=== PATIENT | male | born 1945 | race Caucasian/White ===

== ENCOUNTER 2023-06-06 12:47 | Day surgery (SDC) | payer MEDICARE ==
[2023-06-01 09:31] VITALS: BMI 21.7
[~2023-06-06 12:47] MED LIST: LACTATED RINGERS 1,000 ML IV SCH; LIDOCAINE 1% (10MG/ML) FOR IV START INTRADERMA PRN
[2023-06-06 13:27] LABS: Glucose,Whole Blood 125 mg/dL (70-110)
[2023-06-06] MEDS ORDERED: PHENYLEPHRINE-0.9% NACL SYG 1,000 MCG/10 ML SYRINGE ONE (13:57)
[2023-06-06] MEDS ORDERED: PROPOFOL 10 MG/ML 20 ML VIAL IV ONE (13:57)
[2023-06-06] MEDS ORDERED: SUCCINYLCHOLINE CHLORIDE 200 MG/10 ML VIAL IV ONE (13:57)
[2023-06-06] MEDS ORDERED: fentaNYL (PF) 50 MCG/ML 2 ML AMP ONE (13:57)
[2023-06-06] MEDS ORDERED: LIDOCAINE 2% (PF) 20 MG/ML 5 ML VIAL ONE (13:57)
[2023-06-06 14:54] VITALS: TEMP 97.1
[2023-06-06 15:46] VITALS: RESP 20
[2023-06-06 16:03] VITALS: BP 120/84; PULSE 102
--- NOTE | 2023-06-06 20:13 | OP ---
OPERATIVE REPORT DATE OF SERVICE : PROCEDURES PERFORMED: Bronchoscopy with endobronchial biopsy of endobronchial tumor involving the proximal aspect of the right lower lobe. Washings of the endobronchial tumor and brushings of endobronchial tumor, right lower lobe. PREOPERATIVE DIAGNOSIS: Abnormal CT of the chest showing right hilar mass, possible endobronchial mucous plug. POSTOPERATIVE DIAGNOSIS: Endobronchial tumor, highly consistent with bronchogenic carcinoma. ANESTHESIA USED: General anesthetic. DESCRIPTION OF PROCEDURE: The patient was brought into the bronchoscopy suite after he was prepared according to the bronchoscopy protocol. The patient was intubated by CURB WORKER, and placed on mechanical ventilation and he was closely monitored with a pulse oximetry/continuous cardiac rhythm/continuous and intermittent blood pressure monitor. After adequate sedation, the bronchoscope was advanced into the endobronchial tube, and advanced all the way down to the kiera which was noted to be sharp. Examination of the right upper lobe was done, and there was no evidence of any endobronchial tumors or purulent secretions from the right upper lobe. I then examined the left side, and the left side was basically normal including left upper lobe lingula and left lower lobe. No endobronchial tumors noted on the left side. However, as the bronchoscope was advanced down into the bronchus intermedius and to the lower area, there was evidence of a large tumor completely occluding the right lower lobe bronchus. I was able to pass on the anterior portion of the tumor to the area of the right middle lobe, and I was able to visualize the right middle lobe well but could not have any visualization of the right lower lobe area or the different segments of the right lower lobe. Obviously, the tumor was completely occluding the proximal portion of the right lower lobe bronchus. The tumor looked necrotic, there was some whitish and yellow secretions on the surface of the tumor, I was able to do multiple endobronchial biopsies from the endobronchial tumor itself, brushings were also done, and washings of the tumor were done. The specimen was sent for different diagnostic studies/pathology and cytology. The procedure was well tolerated, and there was very minimal blood loss if any, family was updated on his condition, bronchoscope was pulled out of the airways, and the procedure was well tolerated. MMODL / IJN: [id number] /
[2023-06-07 05:37] LABS: Appearance,BF Blood Tinged (Clear); RBC, Body Fluid 30200 /UL (0-2000)
[2023-06-11 14:53] LABS: Nucleated Cells, Body Fluid 150 /UL
== END 2023-06-06 16:06 | disposition home or self-care (01) ==
LOC: ORWHC2ENDO 12:47
PROVIDERS: ATTEND Internal Medicine
DX: C34.31 Malignant neoplasm of lower lobe, right bronchus or lung (principal); J18.1 Lobar pneumonia, unspecified organism
CPT/HCPCS: 88104; 88108; 88305; 89050; 88342; 88341; 87070; 87205; 87116; 87102; 87077; 87186; 87206; 31625; 31623; 31624; J0330; J3010; J2704; J2001; J2371

== ENCOUNTER → 2023-07-02 | Outpatient (CLI) | payer MEDICARE ==
--- NOTE | 2023-07-03 08:59 | MR ---
EXAMINATION TYPE: MR brain wo/w con DATE OF EXAM: 07/02/2023 COMPARISON: None HISTORY: Lung ca CONTRAST: Performed utilizing 9 mL intravenous Gadavist gadolinium contrast. TECHNIQUE: Multiplanar, multiecho imaging on a 3.0 Aura magnet is performed through the brain. Stud y is performed within 24 hours of arrival to the hospital. The craniovertebral junction is normal. The pituitary is normal. Diffusion-weighted imaging is performed. No abnormal hyperintensity is present to suggest an acute i ntracranial infarct or acute ischemic change. There are scattered punctate areas of hyperintensity on T2 and Inversion Recovery weighted sequences which are non-specific but can be related to microvascular ischemic changes. Ventricles and sulci are appropriate for the patient age. No abnormal enhancement is evident. IMPRESSION: 1. Chronic appearing periventricular white matter ischemic-type changes. 2. No suspicious changes to suggest metastatic lung cancer.
== END | disposition home or self-care (01) ==
LOC: RADMRIMAIN 10:36
PROVIDERS: ATTEND Internal Medicine
DX: G93.89 Other specified disorders of brain (principal); C34.31 Malignant neoplasm of lower lobe, right bronchus or lung
CPT/HCPCS: 70553; A9585

== ENCOUNTER → 2023-07-06 | Outpatient (CLI) | payer MEDICARE ==
--- NOTE | 2023-07-07 08:58 | PE ---
EXAMINATION TYPE: PET CT fusion skull to thigh DATE OF EXAM: 07/06/2023 CLINICAL INDICATION:Male, 77 years old with history of R91.1 LUNG NODULE; TECHNIQUE: Following the intravenous administration of 12.33 mCi of F-18 FDG, whole body images are performed from the skull base to the midthigh. Images are reviewed on the computer in the coronal, axial, and sagittal planes. Reconstructed rotating images are created on independent workstation and reviewed on the computer. A non-contrast CT is performed in conjunction with the PET scan. Glucose level 111 mg/dL CT DLP: 623.39 mGycm, Automated exposure control for dose reduction was used. COMPARISON: CT 03/17/2023, PET/CT None, FINDINGS: Mediastinal SUV mean is 2.2. Hepatic parenchyma SUV mean is 2.5. SKULL BASE AND NECK: No suspicious radiotracer activity. CHEST, MEDIASTINUM, AND HILAR REGION: * Airspace opacities are visualized in the upper aspect right lung max SUV 7.0. * Right lower lung pulmonary nodule with increased FDG activity max SUV 17.0, this is difficult to m easure given lack of IV contrast, on PET imaging measures up to 3.4 x 1.9 cm. * Subcarinal lymph node max SUV 13.0 measuring 13 mm. * Pulmonary hilum lymph node more superiorly max SUV 10.9. This hard to measure given lack of IV con trast , possibly measuring up to 14 mm. ABDOMEN AND PELVIS: No suspicious radiotracer activity. MUSCULOSKELETAL STRUCTURES: Subtle uptake within left rib 8 laterally max SUV 3.[address]: Atherosclerosis of the carotid bifurcations and coronary arteries. Heart is mildly enlarged for size. Aortic valve leaflet calcifications are moderate. IMPRESSION: 1. 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 2. Right upper lung suspected pneumonia. 3. Subtle uptake of left lateral rib 8, correlate with point tenderness for fracture.
== END | disposition home or self-care (01) ==
LOC: RADPETMAIN 12:53
PROVIDERS: ATTEND Internal Medicine
DX: R91.1 Solitary pulmonary nodule (principal)
CPT/HCPCS: 78815; A9552

== ENCOUNTER 2023-08-15 10:42 | Day surgery (SDC) | payer MEDICARE ==
[2023-08-15 11:26] LABS: Glucose,Whole Blood 146 mg/dL (70-110)
[2023-08-15 11:38] VITALS: BP 155/74; PULSE 112; RESP 16; TEMP 98
[2023-08-15] MEDS ORDERED: LIDOCAINE 1% INJ 10MG/ML (20 ML MDV) ONE (12:01)
[2023-08-15] MEDS ORDERED: HEPARIN SODIUM 1,000 UN/ML (10ML VL) ONE (12:01)
[2023-08-15] MEDS ORDERED: LIDOCAINE 1% INJ 10MG/ML (20 ML MDV) SQ ONE (12:08)
--- NOTE | 2023-08-15 14:37 | IR ---
PICC LINE PLACEMENT: HISTORY: Infection requiring long-term antibiotic therapy PROCEDURE: Ultrasound and fluoroscopic guidance of PICC line placement. COMPLICATIONS: None ANESTHESIA: 1. 1% Lidocaine locally. FINDINGS/TECHNIQUE: The procedure was explained to the patient. The risks, complications, benefits and alternatives were discussed and any questions were answered. Informed consent was obtained. The patient was placed supine on the fluoroscopic table and prepped and draped in the usual sterile fash ion. Utilizing a 21 gauge needle and sonographic and fluoroscopic guidance, access in the left basi lic vein was achieved and there is placement of a 0.018 guidewire. The vein is patent. A 4-F sheath was placed over the guidewire. The guidewire and dilator were removed and a 4-F. PICC line was plac ed through the sheath with the tip at the level of the SVC. The sheath was removed, the catheter was flushed and sutured into position. The patient was stable throughout the procedure and remained sta ble upon discharge from the Department of Radiology. The vein puncture was patent under ultrasound. A nunes scale image was obtained to document patency of the vein punctured. All elements of the maximal barrier technique were utilized. FLUOROSCOPY TIME: DAP 0.014Gy cm2 IMPRESSION: Successful PICC line placement under ultrasound and fluoroscopic guidance.
== END 2023-08-15 12:28 | disposition home or self-care (01) ==
LOC: CATHCVL 10:42
PROVIDERS: ATTEND Radiology Diagnostic Radiology
DX: Z45.2 Encounter for adjustment and management of vascular access device (principal); J44.9 Chronic obstructive pulmonary disease, unspecified; Z88.5 Allergy status to narcotic agent; Z88.8 Allergy status to other drugs, medicaments and biological substances; Z79.899 Other long term (current) drug therapy
CPT/HCPCS: 36573; C1751; C1769; J2001

== ENCOUNTER 2023-08-29 23:57 | Inpatient (IN) | payer MEDICARE ==
--- NOTE | 2023-08-30 00:11 | ED ---
SOB HPI - General Source: patient, RN notes reviewed <Mariama Cabral - Last Filed: 08/30/23 00:11> - General Source: RN notes reviewed, old records reviewed Limitations: no limitations - History of Present Illness MD Complaint: shortness of breath, cough -: days(s) Severity: moderate Severity scale (1-10): 4 Quality: aching Consistency: constant Improves With: nothing Worsens With: nothing Known History Of: COPD Context: recent URI, recent illness Associated Symptoms: chest pain, sputum production Treatments Prior to Arrival: none <Vijay Rogers - Last Filed: 08/30/23 03:07> - General Stated Complaint: Respitory distress Time Seen by Provider: 08/30/23 00:11 - History of Present Illness Initial Comments: Patient is 77-year-old male presented ER with chief complaint of dyspnea. Urgent states he recently had Covid. Patient is not normally on oxygen at home. Patient denies any fevers, chills, night sweats. Patient is currently being treated for cancer. (Mariama Cabral) This is a 77-year-old male DF for evaluation of severe shortness of breath positive for coronavirus on and requiring oxygen here. Patient has bilateral PEs on transfer (Vijay Rogers) - Related Data Home Medications Medication Instructions Recorded Confirmed Apixaban [Eliquis] 5 mg PO BID 03/16/23 08/14/23 Diltiazem Cd [Cardizem CD] 240 mg PO DAILY 03/16/23 08/14/23 Metoprolol Tartrate [Lopressor] 12.5 mg PO BID 03/16/23 08/14/23 Famotidine [Pepcid] 20 mg PO DAILY 06/01/23 08/14/23 Furosemide [Lasix] 40 mg PO BID 06/01/23 08/14/23 Gabapentin 300 mg PO BID 06/01/23 08/14/23 HYDROcodone/APAP 5-325MG [[place] 1 tab PO DIRECTED PRN 07/31/23 08/14/23 5-325] Levothyroxine Sodium [Synthroid] 50 mcg PO DAILY 07/31/23 08/14/23 metFORMIN HCL [Glucophage] 500 mg PO BID 07/31/23 08/15/23 Benzonatate 100 mg PO DIRECTED PRN 08/13/23 08/14/23 Citalopram Hydrobromide 10 mg PO DAILY 08/13/23 08/14/23 [Citalopram HBr] Glimepiride 1 mg PO DAILY 08/13/23 08/15/23 Ondansetron [Zofran] 4 mg PO DIRECTED PRN 08/13/23 08/15/23 Previous Rx's Medication Instructions Recorded Aspirin 81 mg PO DAILY 90 Days #90 tab 03/19/23 Atorvastatin [Lipitor] 40 mg PO HS 90 Days #90 tab 03/19/23 Ipratropium-Albuterol Nebulize 3 ml INHALATION RT-QID 30 Days 03/19/23 [Duoneb 0.5 mg-3 mg/3 ml Soln] #120 each Allergies Allergy/AdvReac Type Severity Reaction Status Date / Time cephalexin [From Keflex] Allergy Mild Rash/Hives Verified 08/30/23 00:46 codeine Allergy Mild Rash/Hives Verified 08/30/23 00:46 Review of Systems ROS Other: All systems not noted in ROS Statement are negative. <Mariama Cabral - Last Filed: 08/30/23 00:11> ROS Other: All systems not noted in ROS Statement are negative. <Vijay Rogers - Last Filed: 08/30/23 03:07> ROS Statement: Those systems with pertinent positive or pertinent negative responses have been documented in the HPI. Past Medical History Past Medical History: Atrial Fibrillation, Cancer, COPD, Diabetes Mellitus, GERD/Reflux, Hyperlipidemia, Hypertension, Pneumonia, Thyroid Disorder Additional Past Medical History / Comment(s): hx foot swelling and drainage left healing, taking lasix for this, was very painful, , ultrasound done on 05/31/23 lung cancer 06/18, chemo and radiation. diarrhea since chemo last sunday History of Any Multi-Drug Resistant Organisms: None Reported Past Surgical History: Heart Catheterization, Orthopedic Surgery Additional Past Surgical History / Comment(s): back surg, neck surg, right nipple removed due to pain benign, nerve damage to left side, skin cancer removed ear and face Past Anesthesia/Blood Transfusion Reactions: No Reported Reaction Additional Past Anesthesia/Blood Transfusion Reaction / Comment(s): no blood transfusion Smoking Status: Current every day smoker - Past Family History Mother Family Medical History: Cancer, CVA/TIA Additional Family Medical History / Comment(s): skin Father Family Medical History: Myocardial Infarction ([place]) Additional Family Medical History / Comment(s): chf <Mariama Cabral - Last Filed: 08/30/23 00:11> General Exam <Mariama Cabral - Last Filed: 08/30/23 00:11> General appearance: alert, in no apparent distress Head exam: Present: atraumatic, normocephalic, normal inspection Eye exam: Present: normal appearance, PERRL, EOMI. Absent: scleral icterus, conjunctival injection, periorbital swelling ENT exam: Present: normal exam, mucous membranes moist Neck exam: Present: normal inspection. Absent: tenderness, meningismus, lymphadenopathy Respiratory exam: Present: normal lung sounds bilaterally. Absent: respiratory distress, wheezes, rales, rhonchi, stridor Cardiovascular Exam: Present: regular rate, normal rhythm, normal heart sounds. Absent: systolic murmur, diastolic murmur, rubs, gallop, clicks GI/Abdominal exam: Present: soft, normal bowel sounds. Absent: distended, tenderness, guarding, rebound, rigid Extremities exam: Present: normal inspection, full ROM, normal capillary refill. Absent: tenderness, pedal edema, joint swelling, calf tenderness Back exam: Present: normal inspection Neurological exam: Present: alert, oriented X3, CN II-XII intact Psychiatric exam: Present: normal affect, normal mood Skin exam: Present: warm, dry, intact, normal color. Absent: rash <Vijay Rogers - Last Filed: 08/30/23 03:07> - General Exam Comments Initial Comments: Visual Physical Exam Vital signs reviewed General: Well-appearing, nontoxic, no acute distress. Head: Normocephalic, atraumatic Eyes: PERRLA, EOMI ENT: Airway patent Chest: Nonlabored breathing Skin: No visual rash, normal skin tone Neuro: Alert and oriented 3 Musculoskeletal: No gross abnormalities (Mariama Cabral) Course <Vijay Rogers - Last Filed: 08/30/23 03:07> Vital Signs 08/30/23 08/30/23 00:46 01:31 Temperature 98.4 F Pulse Rate 61 68 Respiratory 18 22 Rate Blood Pressure 101/55 92/45 O2 Sat by Pulse 96 96 Oximetry - Reevaluation(s) Reevaluation #1: 08/30/23 02:36 Medical record is reviewed (Vijay Rogers) Reevaluation #2: 08/30/23 02:37 Patient is in no acute distress (Vijay Rogers) Reevaluation #3: 08/30/23 02:38 Patient informed results and questions answered (Vijay Rogers) Reevaluation #4: 08/30/23 02:36 Was pt. sent in by a medical professional or institution (, RUBY, CUSTODIAL MAINTENANCE WORKER, urgent care, hospital, or intermediate...) When possible be specific @ -no Did you speak to anyone other than the patient for history (EMS, parent, family, police, friend...)? What history was obtained from this source @ -no Did you review nursing and triage notes (agree or disagree)? Why? @ -agree Are old charts reviewed (outside hosp., previous admission, EMS record, old EKG, old radiological studies, urgent care reports/EKG's, intermediate records)? Report findings @ -yes Differential Diagnosis (chest pain, altered mental status, abdominal pain women, abdominal pain men, vaginal bleeding, weakness, fever, dyspnea, syncope, he adache, dizziness, GI bleed, back pain, seizure, CVA, palpatations, mental health, musculoskeletal)? @ -prior EKG interpreted by me (3pts min.). @ -yes X-rays interpreted by me (1pt min.). @ -yes CT interpreted by me (1pt min.). @ -no U/S interpreted by me (1pt. min.). @ -no What testing was considered but not performed or refused? (CT, X-rays, U/S, labs)? Why? @ -none What meds were considered but not given or refused? Why? @ -none Did you discuss the management of the patient with other professionals (professionals i.e. RUBY Hebert, CUSTODIAL MAINTENANCE WORKER, lab, RT, psych nurse, social organization professor, polisher numeral, teacher, commercial escrow officer, egg caser)? Give summary @ -no Was smoking cessation discussed for >3mins.? @ -no Was critical care preformed (if so, how long)? @ -no Were there social determinants of health that impacted care today? How? (Homelessness, low income, unemployed, alcoholism, drug addiction, t ransportation, low edu. Level, literacy, decrease access to med. care, fpc, rehab)? @ -none Was there de-escalation of care discussed even if they declined (Discuss DNR or withdrawal of care, Hospice)? DNR status @ -no What co-morbidities impacted this encounter? (DM, HTN, Smoking, COPD, CAD, Can cer, CVA, ARF, Chemo, Hep., AIDS, mental health diagnosis, sleep apnea, morbid obesity)? @ -none Was patient admitted / discharged? Hospital course, mention meds given and route, prescriptions, significant lab abnormalities, going to OR and other pertinent info. @ - Undiagnosed new problem with uncertain prognosis? @ -no Drug Therapy requiring intensive monitoring for toxicity (Heparin, Nitro, Insulin, Cardizem)? @ -no Were any procedures done? @ -no Diagnosis/symptom? @ - Acute, or Chronic, or Acute on Chronic? @ -Acute Uncomplicated (without systemic symptoms) or Complicated (systemic symptoms)? @ -Complicated Side effects of treatment? @ -no Exacerbation, Progression, or Severe Exacerbation? @ -exacerbation Poses a threat to life or bodily function? How? (Chest pain, [place], [place], pneumonia, PE, COPD, DKA, ARF, appy, cholecystitis, CVA, Diverticulitis, Homicidal, Suicidal, threat to staff... and all critical care pts) @ -yes (Vijay Rogers) Reevaluation #5: 08/30/23 02:38 Differential Weakness: Hypoglycemia, shock, sepsis, hyponatremia, anemia, infection, [place], ETOH, adverse medicine reaction, overdose, stroke, this is not meant to be an all-inclusive list. Differential Dyspnea: Coronary syndrome, arrhythmia, tamponade, asthma, COPD, pulmonary embolism, pneumonia, pneumothorax, pulmonary effusion, anaphylaxis, diabetic ketoacidosis, flailed chest, pulmonary contusion, diaphragmatic rupture, anemia, neuromuscular, this is not meant to be an all-inclusive list. (Vijay Rogers) - Consultations Consultation #1: spoke with sound who agrees to admit the patient (Vijay Rogers) Medical Decision Making <Mariama Cabral - Last Filed: 08/30/23 00:11> - Lab Data Result diagrams: 08/30/23 01:07 08/30/23 01:07 - EKG Data -: EKG Interpreted by Me (EKG is atrial fibrillation 87 QRS 113 QTC 423) - Radiology Data Radiology results: report reviewed <Vijay Rogers - Last Filed: 08/30/23 03:07> - Medical Decision Making I performed the quick note portion of the exam. Electronically signed by Mariama Cabral PA-C (Mariama Cabral) 77 male to the emergency department for evaluation today. Patient's accepted as a transfer patient for evaluation of bilateral PEs even though he is already on anticoagulation with [facility]. Patient will be admitted for high-dose heparin echo and further evaluation regarding treatment of PE (Vijay Rogers) - Lab Data Lab Results 08/30/23 08/30/23 08/30/23 Range/Units 01:07 01:07 01:07 WBC 7.1 (3.8-10.6) k/uL RBC 4.67 (4.30-5.90) m/uL Hgb 11.4 L (13.0-17.5) gm/dL Hct 36.2 L (39.0-53.0) % MCV 77.4 L (80.0-100.0) fL MCH 24.5 L (25.0-35.0) pg MCHC 31.6 (31.0-37.0) g/dL RDW 23.5 H (11.5-15.5) % Plt Count 166 (150-450) k/uL MPV 8.3 Hypochromasia Moderate Poikilocytosis Slight Anisocytosis Moderate Microcytosis Moderate D-Dimer 0.52 (<0.60) mg/L FEU Sodium 134 L (137-145) mmol/L Potassium 4.3 (3.5-5.1) mmol/L Chloride 104 (98-107) mmol/L Carbon Dioxide 18 L (22-30) mmol/L Anion Gap 12 mmol/L BUN 36 H (9-20) mg/dL Creatinine 0.86 (0.66-1.25) mg/dL Est GFR (CKD-EPI)AfAm >90 (>60 ml/min/1.73 sqM) Est GFR (CKD-EPI)NonAf 84 (>60 ml/min/1.73 sqM) Glucose 62 L (74-99) mg/dL Calcium 8.6 (8.4-10.2) mg/dL Total Bilirubin 1.0 (0.2-1.3) mg/dL AST 32 (17-59) U/L ALT 20 (4-49) U/L Alkaline Phosphatase 96 (38-126) U/L Troponin I (0.000-0.034) ng/mL NT-Pro-B Natriuret Pep 1550 pg/mL Total Protein 6.7 (6.3-8.2) g/dL Albumin 3.4 L (3.5-5.0) g/dL Influenza Type A (PCR) (Not Detectd) Influenza Type B (PCR) (Not Detectd) RSV (PCR) (Not Detectd) SARS-CoV-2 (PCR) (Not Detectd) 08/30/23 08/30/23 Range/Units 01:07 01:07 WBC (3.8-10.6) k/uL RBC (4.30-5.90) m/uL Hgb (13.0-17.5) gm/dL Hct (39.0-53.0) % MCV (80.0-100.0) fL MCH (25.0-35.0) pg MCHC (31.0-37.0) g/dL RDW (11.5-15.5) % Plt Count (150-450) k/uL MPV Hypochromasia Poikilocytosis Anisocytosis Microcytosis D-Dimer (<0.60) mg/L FEU Sodium (137-145) mmol/L Potassium (3.5-5.1) mmol/L Chloride (98-107) mmol/L Carbon Dioxide (22-30) mmol/L Anion Gap mmol/L BUN (9-20) mg/dL Creatinine (0.66-1.25) mg/dL Est GFR (CKD-EPI)AfAm (>60 ml/min/1.73 sqM) Est GFR (CKD-EPI)NonAf (>60 ml/min/1.73 sqM) Glucose (74-99) mg/dL Calcium (8.4-10.2) mg/dL Total Bilirubin (0.2-1.3) mg/dL AST (17-59) U/L ALT (4-49) U/L Alkaline Phosphatase (38-126) U/L Troponin I <0.012 (0.000-0.034) ng/mL NT-Pro-B Natriuret Pep pg/mL Total Protein (6.3-8.2) g/dL Albumin (3.5-5.0) g/dL Influenza Type A (PCR) Not Detected (Not Detectd) Influenza Type B (PCR) Not Detected (Not Detectd) RSV (PCR) Not Detected (Not Detectd) SARS-CoV-2 (PCR) Detected A (Not Detectd) Disposition <Mariama Cabral - Last Filed: 08/30/23 00:11> Is patient prescribed a controlled substance at d/c from ED?: No Time of Disposition: 02:35 <Vijay Rogers - Last Filed: 08/30/23 03:07> Clinical Impression: Lung cancer, Acute exacerbation of chronic obstructive pulmonary disease, Bilateral pulmonary embolism, Coagulopathy, Congestive heart failure, Atrial fibrillation Disposition: ADMITTED IP TO THIS HOSP Condition: Fair
[2023-08-30 01:26] LABS: Anisocytosis Moderate; HCT 36.2 % (39.0-53.0); HGB 11.4 gm/dL (13.0-17.5); Hypochromasia Moderate; MCH 24.5 pg (25.0-35.0); MCHC 31.6 g/dL (31.0-37.0); MCV 77.4 fL (80.0-100.0); Mean Platelet Volume 8.3; Microcytosis Moderate; Platelet Count 166 k/uL (150-450); Poikilocytosis Slight; RBC 4.67 m/uL (4.30-5.90); RDW 23.5 % (11.5-15.5); WBC 7.1 k/uL (3.8-10.6)
[2023-08-30 01:38] LABS: ALT 20 U/L (4-49); African American GFR (CKD) >90 (>60 ml/min/1.73 sqM); Anion Gap 12 mmol/L; Blood Urea Nitrogen 36 mg/dL (9-20); Calcium 8.6 mg/dL (8.4-10.2); Carbon Dioxide 18 mmol/L (22-30); Chloride 104 mmol/L (98-107); Glucose 62 mg/dL (74-99); Non-African American GFR(CKD) 84 (>60 ml/min/1.73 sqM); Sodium 134 mmol/L (137-145)
[2023-08-30 01:47] LABS: NT-Pro-B-Type Natriuretic Pept 1550 pg/mL
[2023-08-30 01:48] LABS: Potassium 4.3 mmol/L (3.5-5.1); Total Protein 6.7 g/dL (6.3-8.2)
[2023-08-30 01:49] LABS: AST 32 U/L (17-59); Albumin 3.4 g/dL (3.5-5.0); Alkaline Phosphatase 96 U/L (38-126)
--- NOTE | 2023-08-30 01:51 | XR ---
EXAM: XR Chest, 1 View CLINICAL HISTORY: ITS.REASON XR Reason: dyspnea TECHNIQUE: Frontal view of the chest. COMPARISON: No relevant prior studies available. IMPRESSION: Cardiomegaly. Mild vascular congestion
[2023-08-30] MEDS ORDERED: ONDANSETRON 4 MG/2 ML VIAL IVP PRN (02:31)
[2023-08-30] MEDS ORDERED: NALOXONE 0.4 MG/ML 1 ML VIAL IV PRN (02:31)
[2023-08-30] MEDS ORDERED: HYDROmorphone 1 MG/ML 1 ML SYRINGE IVP PRN (02:31)
[2023-08-30] MEDS: SODIUM CHLORIDE 0.9% 1,000 ML IV SCH ×2 (02:55→17:48)
[2023-08-30] MEDS ORDERED: HEPARIN SODIUM 1,000 UN/ML (10ML VL) IV ONE (03:06)
[2023-08-30] MEDS ORDERED: HEPARIN SODIUM 1,000 UN/ML (10ML VL) IV PRN (03:06)
[2023-08-30] MEDS: HEPARIN SOD,PORK IN 0.45% NACL 25,000 UNIT in 0.45% NACL 1 250ML.BAG IV SCH ×2 (03:25→21:48)
--- NOTE | 2023-08-30 04:30 | P.HPIM ---
History of Present Illness H&P Date: 08/30/23 Patient is a 77-year-old male with a PMH of recently diagnosed non-small cell lung cancer (currently receiving chemotherapy and radiation, following with Dr Vaca), A. fib on Eliquis, type II DM, hypertension, anxiety, who was transferred from [facility] where he had presented to the emergency room with complaints of shortness of breath. Patient reports he was diagnosed with COVID around [place] and has had gradually worsening shortness of breath. Reports a chronic nonproductive cough. Denies lower extremity swelling or pain. Denies chest discomfort, fever, chills, nausea, vomiting, abdominal pain, diarrhea. The patient underwent an extensive evaluation at [facility] which was all reviewed with CT angiogram of chest revealed right upper and lower lobe segmental pulmonary emboli with lower lung interstitial opacities concerning for infectious etiology. EKG at our facility revealed A. fib at 87 bpm with an incomplete right bundle branch block as reviewed by me. Chest x-ray revealed generalized mild opacities. Laboratory evaluation revealed COVID PCR positive. The patient's SpO2 in the emergency room was 96% on room air. ED documentation reviewed and case discussed with ED provider. Review of systems: Pertinent positives and negatives as discussed in HPI, a complete review of systems was performed and all other systems are negative. Physical examination: Vital signs reviewed General: non toxic, no distress, appears at stated age, normal weight Derm: no unusual rashes/lesions, warm Head: atraumatic, normocephalic, symmetric Eyes: EOMI, no lid lag, anicteric sclera, pupils equal round reactive to light ENT: Nose and ears atraumatic Neck: No cervical lymphadenopathy, trachea midline, supple Mouth: no lip lesion, mucus membranes moist Cardiovascular: S1S2 reg, no murmur, positive dorsalis pedis pulse bilateral, no edema Lungs: CTA bilateral, no rhonchi, no rales, no accessory muscle use Abdominal: soft, nontender to palpation, no guarding Ext: muscle strength 4 out of 5 in all 4 extremities grossly, no gross muscle atrophy, no contractures, Neuro: CN II-XI grossly intact, no gross focal neuro deficits Psych: Alert, oriented, appropriate affect Assessment: Acute PE, failure of NOAC therapy in setting of COVID Chronic conditions: Stage III non-small cell lung cancer, A. fib, type II DM, hypertension Imaging: CT angiogram of chest revealed right upper and lower lobe segmental pulmonary emboli with lower lung interstitial opacities concerning for infectious etiology. EKG at our facility revealed A. fib at 87 bpm with an incomplete right bundle branch block as reviewed by me. Chest x-ray revealed generalized mild opacities. Data Review: Laboratory evaluation revealed COVID PCR positive. The patient's SpO2 in the emergency room was 96% on room air. Plan: Continue with heparin infusion Pulmonology consulted Obtain echocardiogram Continue with IV fluids normal saline 75 mL/h Oncology consulted DVT prophylaxis: Heparin infusion The patient is admitted with an anticipated greater than 2 midnight stay for evaluation of acute PE CODE STATUS: Full Code Discussed with: Patient Anticipated discharge place: Home Past Medical History Past Medical History: Atrial Fibrillation, Cancer, COPD, Diabetes Mellitus, GERD/Reflux, Hyperlipidemia, Hypertension, Pneumonia, Thyroid Disorder Additional Past Medical History / Comment(s): hx foot swelling and drainage left healing, taking lasix for this, was very painful, , ultrasound done on 05/31/23 lung cancer 06/18, chemo and radiation. diarrhea since chemo last sunday History of Any Multi-Drug Resistant Organisms: None Reported Past Surgical History: Heart Catheterization, Orthopedic Surgery Additional Past Surgical History / Comment(s): back surg, neck surg, right nipple removed due to pain benign, nerve damage to left side, skin cancer removed ear and face Past Anesthesia/Blood Transfusion Reactions: No Reported Reaction Additional Past Anesthesia/Blood Transfusion Reaction / Comment(s): no blood transfusion Past Psychological History: No Psychological Hx Reported Smoking Status: Former smoker Past Alcohol Use History: None Reported Past Drug Use History: None Reported - Past Family History Mother Family Medical History: Cancer, CVA/TIA Additional Family Medical History / Comment(s): skin Father Family Medical History: Myocardial Infarction ([place]) Additional Family Medical History / Comment(s): chf Medications and Allergies Home Medications Medication Instructions Recorded Confirmed Type Apixaban [Eliquis] 5 mg PO BID 03/16/23 08/14/23 History Diltiazem Cd [Cardizem CD] 240 mg PO DAILY 03/16/23 08/14/23 History Metoprolol Tartrate [Lopressor] 12.5 mg PO BID 03/16/23 08/14/23 History Aspirin 81 mg PO DAILY 90 Days #90 tab 03/19/23 08/14/23 Rx Atorvastatin [Lipitor] 40 mg PO HS 90 Days #90 tab 03/19/23 08/15/23 Rx Ipratropium-Albuterol Nebulize 3 ml INHALATION RT-QID 30 Days 03/19/23 08/14/23 Rx [Duoneb 0.5 mg-3 mg/3 ml Soln] #120 each Famotidine [Pepcid] 20 mg PO DAILY 06/01/23 08/14/23 History Furosemide [Lasix] 40 mg PO BID 06/01/23 08/14/23 History Gabapentin 300 mg PO BID 06/01/23 08/14/23 History HYDROcodone/APAP 5-325MG [[place] 1 tab PO DIRECTED PRN 07/31/23 08/14/23 History 5-325] Levothyroxine Sodium [Synthroid] 50 mcg PO DAILY 07/31/23 08/14/23 History metFORMIN HCL [Glucophage] 500 mg PO BID 07/31/23 08/15/23 History Benzonatate 100 mg PO DIRECTED PRN 08/13/23 08/14/23 History Citalopram Hydrobromide 10 mg PO DAILY 08/13/23 08/14/23 History [Citalopram HBr] Glimepiride 1 mg PO DAILY 08/13/23 08/15/23 History Ondansetron [Zofran] 4 mg PO DIRECTED PRN 08/13/23 08/15/23 History Allergies Allergy/AdvReac Type Severity Reaction Status Date / Time cephalexin [From Keflex] Allergy Mild Rash/Hives Verified 08/30/23 00:46 codeine Allergy Mild Rash/Hives Verified 08/30/23 00:46 Physical Exam Vitals: Vital Signs Temp Pulse Resp BP Pulse Ox 08/30/23 01:31 68 22 92/45 96 08/30/23 00:46 98.4 F 61 18 101/55 96 Intake and Output 08/29/23 08/29/23 08/30/23 14:59 22:59 06:59 Other: Weight 81.647 kg Results CBC & Chem 7: 08/30/23 01:07 08/30/23 01:07 Labs: Abnormal Lab Results - Last 24 Hours (Table) 08/30/23 08/30/23 08/30/23 Range/Units 01:07 01:07 01:07 Hgb 11.4 L (13.0-17.5) gm/dL Hct 36.2 L (39.0-53.0) % MCV 77.4 L (80.0-100.0) fL MCH 24.5 L (25.0-35.0) pg RDW 23.5 H (11.5-15.5) % Sodium 134 L (137-145) mmol/L Carbon Dioxide 18 L (22-30) mmol/L BUN 36 H (9-20) mg/dL Glucose 62 L (74-99) mg/dL Albumin 3.4 L (3.5-5.0) g/dL SARS-CoV-2 (PCR) Detected A (Not Detectd)
[2023-08-30 08:29] LABS: Glucose,Whole Blood 89 mg/dL (70-110)
[2023-08-30] MEDS ORDERED: DILTIAZEM CD 120 MG CAP.ER.24H PO SCH (09:00)
[2023-08-30] MEDS: METOPROLOL TARTRATE 12.5 MG TAB PO SCH ×2 (09:05→21:15)
[2023-08-30] MEDS: DILTIAZEM CD 240 MG CAP.ER.24H PO SCH (09:05)
[2023-08-30] MEDS: ASPIRIN 81 MG PO SCH (09:05)
[2023-08-30] MEDS: LEVOTHYROXINE 50 MCG TAB PO SCH (09:05)
[2023-08-30] MEDS: FUROSEMIDE 40 MG TAB PO SCH ×2 (09:05→17:48)
--- NOTE | 2023-08-30 11:23 | P.CRDCN ---
History of Present Illness Consult date: 08/30/23 Reason for Consult (text): PE History of present illness: History of present illness: This is a 77 year old male patient of Dr. Puckett with past medical history of hypertension, dyslipidemia, diabetes, overweight, smoking history, permanent atrial fibrillation, COPD. We have been asked to evaluate the patient for pulmonary embolism. Patient initially presented to [facility] and had a CTA of the chest done at [place] revealed right upper and lower lobe segmental pulmonary emboli. Question of additional incompletely occlusive emboli versus mixing artifact at the right upper lobe. Increased prominence of interstitial opacities of the lower lungs which may be related to infection or inflammatory change. In the emergency center at at [place], patient was diagnosed with multilobar pulmonary emboli, probable CAPD, lung cancer, anticoagulant state and Covid 19 viral syndrome. Patient was transferred to [facility]. The patient is in isolation for Covid 19. He has frequent coughing. Patient is seen today in the emergency center waiting for a bed on the cardiac stepdown unit. Vital signs are stable. EKG atrial fibrillation with ventricular rate of 87 bpm Chest x-ray: Mild vascular congestion D-dimer 0.52. Hemoglobin 11.4, WBC 7.1, platelet count 166. BUN 36 creatinine 0.86, sodium 134, potassium 4.3. Troponin negative 3. ProBNP 1550. Liver function tests are normal. Influenza A, influenza B, RSV not detected. Covid 19 detected. Home cardiac medications: Eliquis 5 mg twice daily, aspirin 81 mg daily, heart is on CD 240 mg daily, Lasix 40 mg twice daily, Lopressor 12.5 mg twice daily, Crestor 10 mg at bedtime, also on levothyroxine 50 g daily Echocardiogram performed 11/13/2022 revealed EF normal, moderate MR, moderate AR, moderate AF. Review Of Systems: At the time of my exam: CONSTITUTIONAL: Denies fever or chills. CARDIOVASCULAR: Denies chest pain, Denies shortness of breath, no orthopnea, PND or palpitations. RESPIRATORY: Reports cough. GASTROINTESTINAL: Denies abdominal pain, diarrhea, constipation, nausea or vomiting. MUSCULOSKELETAL: Denies myalgias. NEUROLOGIC: Denies numbness, tingling or weakness. ENDOCRINE: Denies fatigue, weight change, polydipsia or polyurina. GENITOURINARY: Denies burning, hematuria or urgency with micturation. HEMATOLOGIC: Denies history of anemia or bleeding. Physical examination: Gen: This is a 77-year-old male. He is resting and appears to be comfortable and in no acute distress. VS: reviewed Full examination deferred due to Covid 19 NEUROLOGICAL: Patient is awake, alert and oriented x3. Assessment: Segmental pulmonary emboli Failed eliquis Permanent atrial fibrillation, rate controlled Hypertension Dyslipidemia Diabetes Smoking history COPD Lung cancer Plan: Resume patient's home cardiac medications Continue heparin drip and anticoagulation will be determined by pulmonary medicine and hematology are Obtain 2-D echocardiogram and Doppler study to assess cardiac structure and function No further cardiac workup at this time Consult placed for pulmonary medicine evaluation Thank you kindly for this consultation. Nurse practitioner note has been reviewed, I agree with documented findings and plan of care. Patient was seen and examined. Past Medical History Past Medical History: Atrial Fibrillation, Cancer, COPD, Diabetes Mellitus, GERD/Reflux, Hyperlipidemia, Hypertension, Pneumonia, Thyroid Disorder Additional Past Medical History / Comment(s): hx foot swelling and drainage left healing, taking lasix for this, was very painful, , ultrasound done on 05/31/23 lung cancer 06/18, chemo and radiation. diarrhea since chemo last sunday History of Any Multi-Drug Resistant Organisms: None Reported Past Surgical History: Heart Catheterization, Orthopedic Surgery Additional Past Surgical History / Comment(s): back surg, neck surg, right nipple removed due to pain benign, nerve damage to left side, skin cancer removed ear and face Past Anesthesia/Blood Transfusion Reactions: No Reported Reaction Additional Past Anesthesia/Blood Transfusion Reaction / Comment(s): no blood transfusion Past Psychological History: No Psychological Hx Reported Smoking Status: Former smoker Past Alcohol Use History: None Reported Past Drug Use History: None Reported - Past Family History Mother Family Medical History: Cancer, CVA/TIA Additional Family Medical History / Comment(s): skin Father Family Medical History: Myocardial Infarction ([place]) Additional Family Medical History / Comment(s): chf Medications and Allergies Home Medications Medication Instructions Recorded Confirmed Type Apixaban [Eliquis] 5 mg PO BID 03/16/23 08/30/23 History Diltiazem Cd [Cardizem CD] 240 mg PO DAILY 03/16/23 08/30/23 History Metoprolol Tartrate [Lopressor] 12.5 mg PO BID 03/16/23 08/30/23 History Aspirin 81 mg PO DAILY 90 Days #90 tab 03/19/23 08/30/23 Rx Ipratropium-Albuterol Nebulize 3 ml INHALATION RT-QID 30 Days 03/19/23 08/30/23 Rx [Duoneb 0.5 mg-3 mg/3 ml Soln] #120 each Famotidine [Pepcid] 20 mg PO DAILY 06/01/23 08/30/23 History Furosemide [Lasix] 40 mg PO BID 06/01/23 08/30/23 History Gabapentin 300 mg PO BID 06/01/23 08/30/23 History HYDROcodone/APAP 5-325MG [[place] 1 tab PO Q8H PRN 07/31/23 08/30/23 History 5-325] Levothyroxine Sodium [Synthroid] 50 mcg PO DAILY 07/31/23 08/30/23 History metFORMIN HCL [Glucophage] 500 mg PO BID 07/31/23 08/30/23 History Citalopram Hydrobromide 10 mg PO DAILY 08/13/23 08/30/23 History [Citalopram HBr] Glimepiride 1 mg PO DAILY 08/13/23 08/30/23 History Ondansetron [Zofran] 4 mg PO Q8H PRN 08/13/23 08/30/23 History Albuterol Sulfate [Albuterol 2 puff PO RT-Q6H PRN 08/30/23 08/30/23 History Sulfate Hfa] Rosuvastatin [Crestor] 10 mg PO HS 08/30/23 08/30/23 History Zolpidem Tartrate [Ambien] 5 mg PO HS 08/30/23 08/30/23 History predniSONE See Taper PO DIRECTED 08/30/23 08/30/23 History Allergies Allergy/AdvReac Type Severity Reaction Status Date / Time cephalexin [From Keflex] Allergy Mild Rash/Hives Verified 08/30/23 07:32 codeine Allergy Mild Rash/Hives Verified 08/30/23 07:32 Physical Exam Vitals: Vital Signs Temp Pulse Resp BP Pulse Ox 08/30/23 04:00 86 18 94/61 96 08/30/23 03:00 64 24 95/70 96 08/30/23 01:31 68 22 92/45 96 08/30/23 00:46 98.4 F 61 18 101/55 96 Intake and Output 08/29/23 08/30/23 08/30/23 22:59 06:59 14:59 Other: Weight 81.647 kg Results 08/30/23 01:07 08/30/23 01:07 Cardiac Enzymes 08/30/23 08/30/23 08/30/23 Range/Units 01:07 01:07 04:20 AST 32 (17-59) U/L Troponin I <0.012 <0.012 (0.000-0.034) ng/mL CBC 08/30/23 Range/Units 01:07 WBC 7.1 (3.8-10.6) k/uL RBC 4.67 (4.30-5.90) m/uL Hgb 11.4 L (13.0-17.5) gm/dL Hct 36.2 L (39.0-53.0) % Plt Count 166 (150-450) k/uL Comprehensive Metabolic Panel 08/30/23 Range/Units 01:07 Sodium 134 L (137-145) mmol/L Potassium 4.3 (3.5-5.1) mmol/L Chloride 104 (98-107) mmol/L Carbon Dioxide 18 L (22-30) mmol/L BUN 36 H (9-20) mg/dL Creatinine 0.86 (0.66-1.25) mg/dL Glucose 62 L (74-99) mg/dL Calcium 8.6 (8.4-10.2) mg/dL AST 32 (17-59) U/L ALT 20 (4-49) U/L Alkaline Phosphatase 96 (38-126) U/L Total Protein 6.7 (6.3-8.2) g/dL Albumin 3.4 L (3.5-5.0) g/dL Current Medications Generic Name Dose Route Start Last Admin Trade Name Freq PRN Reason Stop Dose Admin Heparin Sodium (Porcine) 0 unit 08/30/23 03:06 Heparin Sodium 1,000 Un/Ml (10ml Vl) IV PER PROTOCOL PRN Low PTT Protocol Hydromorphone HCl 1 mg 08/30/23 02:31 Hydromorphone 1 Mg/Ml 1 Ml Syringe IVP Q3HR PRN Severe Pain (Scale 7 to 10) Sodium Chloride 1,000 mls @ 75 mls/hr 08/30/23 02:45 08/30/23 02:55 Saline 0.9% IV 75 mls/hr .[id number] ROSE MARIE Administration Heparin Sodium/Sodium Chloride 250 mls @ 14.696 mls/hr 08/30/23 03:15 08/30/23 03:25 25,000 unit/ Sodium Chloride IV 18 units/kg/hr .[id number] ROSE MARIE 14.696 mls/hr Administration Protocol 18 UNITS/KG/HR Naloxone HCl 0.2 mg 08/30/23 02:31 Naloxone 0.4 Mg/Ml 1 Ml Vial IV Q2M PRN Opioid Reversal Ondansetron HCl 4 mg 08/30/23 02:31 Ondansetron 4 Mg/2 Ml Vial IVP Q8HR PRN Nausea And Vomiting Intake and Output 08/29/23 08/30/23 08/30/23 22:59 06:59 14:59 Other: Weight 81.647 kg 08/30/23 01:07 08/30/23 01:07
--- NOTE | 2023-08-30 11:35 | CA ---
Transthoracic Echo Report Name: Kali Carlson Age: 77 Gender: M : 1945 Exam Date: 08/30/2023 09:24 Exam Location: [facility] Ht (in): 76 Wt (lb): 180 Ordering Physician: Vijay Rogers DO Attending/Referring Phys: [id number], Ken [employer] Keven Maldonado Procedure CPT: Indications: PE Cardiac Hx: Technical Quality: Fair Contrast 1: Total Dose (mL): Contrast 2: Total Dose (mL): MEASUREMENTS (Male / Female) Normal Values 2D ECHO LV Diastolic Diameter PLAX 5.0 cm 4.2 - 5.9 / 3.9 - 5.3 cm LV Systolic Diameter PLAX 3.2 cm IVS Diastolic Thickness 1.1 cm 0.6 - 1.0 / 0.6 - 0.9 cm LVPW Diastolic Thickness 1.3 cm 0.6 - 1.0 / 0.6 - 0.9 cm LV Relative Wall Thickness 0.5 RV Internal Dim ED PLAX 3.6 cm LVOT Diameter 2.2 cm Aortic Root Diameter 2.6 cm LA Systolic Diameter LX 2.7 cm 3.0 - 4.0 / 2.7 - 3.8 cm LV Diastolic Volume MOD BP 65.3 cm??? 67 - 155 / 56 - 104 cm??? LV Systolic Volume MOD BP 32.1 cm??? - 58 / 19 - 49 cm??? LV Ejection Fraction MOD BP 50.8 % >= 55 % LV Cardiac Index MOD BP 1528.6 cm???/min???m??? LV Diastolic Volume MOD 4C 93.5 cm??? LV Systolic Volume MOD 4C 43.0 cm??? LV Ejection Fraction MOD 4C 54.1 % LV Cardiac Index MOD 4C 2327.8 cm???/min???m??? LV Diastolic Length 4C 8.1 cm LV Systolic Length 4C 7.4 cm LV Diastolic Volume MOD 2C 39.5 cm??? LV Systolic Volume MOD 2C 20.4 cm??? LV Ejection Fraction MOD 2C 48.4 % LV Cardiac Index MOD 2C 879.0 cm???/min???m??? LV Diastolic Length 2C 7.0 cm LV Systolic Length 2C 6.2 cm LA Volume 62.9 cm??? 18 - 58 / 22 - 52 cm??? LA Volume Index 30.1 cm???/m??? 16 - 28 cm???/m??? DOPPLER AV Peak Velocity 163.1 cm/s AV Peak Gradient 10.6 mmHg AV Mean Velocity 176.4 cm/s AV Mean Gradient 13.8 mmHg AV Velocity Time Integral 42.7 cm AI Peak Velocity 333.9 cm/s AI Peak Gradient 44.6 mmHg AI Pressure Half Time 643.2 ms LVOT Peak Velocity 66.4 cm/s LVOT Peak Gradient 1.8 mmHg LVOT Velocity Time Integral 12.2 cm LVOT Stroke Volume 45.0 cm??? LVOT Stroke Volume Index 21.2 ml/m??? LVOT Cardiac Index 2071.3 cm???/min???m??? AV Area Cont Eq vti 1.1 cm??? AV Area Cont Eq pk 1.5 cm??? MV Peak Velocity 93.9 cm/s MV Peak Gradient 3.5 mmHg MV Mean Velocity 40.1 cm/s MV Mean Gradient 0.9 mmHg MV Velocity Time Integral 21.6 cm MR Peak Velocity 365.7 cm/s MR Peak Gradient 53.5 mmHg MV E' Velocity 6.5 cm/s TR Peak Velocity 229.6 cm/s TR Peak Gradient 21.1 mmHg Right Ventricular Systolic Press 26.1 mmHg FINDINGS Left Ventricle Normal LV size. Mild concentric LVH. Left ventricular ejection fraction is estimated at 50 %. Right Ventricle Normal right ventricular size. RVSP= 26mmHg Right Atrium Normal right atrial size. Left Atrium Mild left atrial dilatation. LA volume index= 30ml/m2 Mitral Valve Structurally normal mitral valve. Mild MR. Aortic Valve Moderate to severe AV calcification. Moderate AI. Moderate aortic stenosis mean gradient is 14 mmHg but probably underestimated. There is also mild mid to moderate aortic regurgitation Tricuspid Valve Structurally normal tricuspid valve. Mild TR. Pulmonic Valve Pulmonic valve not well visualized. No pulmonic regurgitation. Pericardium Normal pericardium. Aorta Normal size aortic root. CONCLUSIONS Fairly well-preserved LV systolic function with probably moderate aortic stenosis and mild to moderate regurgitation. No significant pulmonary hypertension. Aortic valve is not very well visualized and the gradient not well quantified. No pericardial effusion. Previewed by: Dr. Daren Davison MD (Electronically Signed) Final Date: 30 August 2023 11:34
--- NOTE | 2023-08-30 11:52 | P.PN ---
Subjective Progress Note Date: 08/30/23 Patient is a 77-year-old male with a PMH of recently diagnosed non-small cell lung cancer (currently receiving chemotherapy and radiation, following with Dr Vaca), A. fib on Eliquis, type II DM, hypertension, anxiety, who was transferred from [facility] where he had presented to the emergency room with complaints of shortness of breath. Patient reports he was diagnosed with COVID around [place] and has had gradually worsening shortness of breath. Reports a chronic nonproductive cough. Denies lower extremity swelling or pain. Denies chest discomfort, fever, chills, nausea, vomiting, abdominal pain, diarrhea. The patient underwent an extensive evaluation at [facility] which was all reviewed with CT angiogram of chest revealed right upper and lower lobe segmental pulmonary emboli with lower lung interstitial opacities concerning for infectious etiology. EKG at our facility revealed A. fib at 87 bpm with an incomplete right bundle branch block as reviewed by me. Chest x-ray revealed generalized mild opacities. Laboratory evaluation revealed COVID PCR positive. The patient's SpO2 in the emergency room was 96% on room air. 08/30 Patient was seen and examined. Currently on RA. Feeling better. Complains of difficulty urinating. CBC Hg 11.4, MCV 77.4. D-Dimer 0.52. BMP Na 134, bicarb 18, BUN 36, glu 62. Troponin < 0.012 x 2. BNP 1550. Currently on heparin drip at 18 units/kg/hr. Vital signs reviewed General: non toxic, no distress, appears at stated age, normal weight Derm: no unusual rashes/lesions, warm Head: atraumatic, normocephalic, symmetric Eyes: EOMI, no lid lag, anicteric sclera ENT: Nose and ears atraumatic Neck: No cervical lymphadenopathy, trachea midline, supple Cardiovascular: S1S2 reg, no murmur Lungs: CTA bilateral, no rhonchi, no rales, no accessory muscle use Ext: muscle strength 4 out of 5 in all 4 extremities grossly, no gross muscle atrophy, no contractures, Neuro: no gross focal neuro deficits Psych: Alert, oriented, appropriate affect Based on my assessment of this patient, this patient meets a high complexity level of care. Patient has an acute diagnosis of PE in the setting of COVID 19 while on Eliquis that poses a threat to life or bodily function. Pulmonary embolus: Heparin drip at 18 units/kg/hr. Obtain Echocardiogram. Telemetry monitoring. Oncology and Pulmonology consult. Urinary retention: Bladder scan PRN. Straight cath if needed. COVID 19: No specific treatment. Not on oxygen. Supportive management. Diabetes mellitus with Hypoglycemia: Accuchecks ACHS. Microcytic anemia: Chronic and stable. Transfuse if Hg < 7. Prerenal azotemia with metabolic acidosis: Dehydration. Continue NS at 75 cc/hr. Chronic conditions: non-small cell lung cancer (currently receiving chemotherapy and radiation, following with Dr Vaca), A. fib on Eliquis, type II DM, hypertension, anxiety CODE STATUS: FULL CODE DVT Prophylaxis: Heparin drip GI Prophylaxis: Designated medical POA if patient is not able to make medical decisions for themselves: I have reviewed the following access consultant notes: Cardiology. I have reviewed the results of the following tests: CBC, D-Dimer, BMP, Trop, BNP. I have ordered the following tests: Pending: Echo Agree with CBC, CMP. I have discussed the care of this patient with the following independent historian: I have independently interpreted the following test below: I have discussed the management of this patient with the following physician: This patient has a high risk of morbidity due to the following reasons: Patient requires IV heparin which requires intensive monitoring for toxicity (coag panel) and bleeding. Objective - Vital Signs Vital signs: Vital Signs Temp 98.4 F 08/30/23 00:46 Pulse 86 08/30/23 04:00 Resp 18 08/30/23 04:00 BP 94/61 08/30/23 04:00 Pulse Ox 96 08/30/23 04:00 FiO2 Intake & Output 08/29/23 08/30/23 08/30/23 18:59 06:59 18:59 Weight 81.647 kg - Labs CBC & Chem 7: 08/30/23 01:07 08/30/23 01:07 Labs: Abnormal Lab Results - Last 24 Hours (Table) 08/30/23 08/30/23 08/30/23 Range/Units 01:07 01:07 01:07 Hgb 11.4 L (13.0-17.5) gm/dL Hct 36.2 L (39.0-53.0) % MCV 77.4 L (80.0-100.0) fL MCH 24.5 L (25.0-35.0) pg RDW 23.5 H (11.5-15.5) % Sodium 134 L (137-145) mmol/L Carbon Dioxide 18 L (22-30) mmol/L BUN 36 H (9-20) mg/dL Glucose 62 L (74-99) mg/dL Albumin 3.4 L (3.5-5.0) g/dL SARS-CoV-2 (PCR) Detected A (Not Detectd)
[2023-08-30 12:34] LABS: Glucose,Whole Blood 105 mg/dL (70-110)
--- NOTE | 2023-08-30 15:34 | P.CNPUL ---
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 Patient was referred to Dr. Vaca , and he underwent chemo and radiation. PET scan at the time showed significant uptake in the right lower lobe malignancy as well as in the pulmonary hilum and the sacrum. There was also some uptake in the left lateral rib #8. Patient is also known to have history of diabetes, chronic atrial fibrillation maintained on eliquis, and at this time the patient was seen at [facility] with shortness of breath CT angiogram of the chest showed pulmonary emboli. There was also evidence of prominent interstitial opacities in the lower lungs, not to mention the patient had a recent COVID-19 infection back around [place], and continues to have some intermittent cough along with shortness of breath. Patient was transferred to [facility], I saw the patient, and I recommended that the patient remains on heparin for now, obviously the patient may have failed eliquis considering the patient has been very compliant with his eliquis for his chronic atrial fibrillation. For now we'll treat the patient with heparin and will consult hematology to address other anticoagulation therapy since the patient failed eliquis. In the ER the patient seems to be very comfortable, not in any distress, on room air, his O2 sat sugars was 96%, blood pressure was 94/74, and again patient seems to be very comfortable and relatively asymptomatic except for shortness of breath on exertion, and intermittent cough. Chest x-ray showed nonspecific changes in the lower lobes, most likely related to his previous diagnosed of bronchogenic carcinoma especially in the right lower lobe area. Slight prominence of the pulmonary vasculature is noted. WBC count is 7.1 hem oglobin 11.4 basic metabolic profile is normal PTT is 94. His d-dimer is only 0.52, which makes me doubt that evening on his CT angiogram of the chest, May have to consider repeating the CT angiogram on this patient before transitioning to different anticoagulation therapy Review of Systems CONSTITUTIONAL: Denies fever or chills. CARDIOVASCULAR: Denies chest pain, Denies shortness of breath, no orthopnea, PND or palpitations. RESPIRATORY: Cough and shortness of breath on exertion GASTROINTESTINAL: Denies abdominal pain, diarrhea, constipation, nausea or vomiting. MUSCULOSKELETAL: Denies myalgias. NEUROLOGIC: Denies numbness, tingling or weakness. ENDOCRINE: Denies fatigue, weight change, polydipsia or polyurina. GENITOURINARY: Denies burning, hematuria or urgency with micturation. HEMATOLOGIC: Denies history of anemia or bleeding. Past Medical History Past Medical History: Atrial Fibrillation, Cancer, COPD, Diabetes Mellitus, GERD/Reflux, Hyperlipidemia, Hypertension, Pneumonia, Thyroid Disorder Additional Past Medical History / Comment(s): hx foot swelling and drainage left healing, taking lasix for this, was very painful, , ultrasound done on 05/31/23 lung cancer 06/18, chemo and radiation. diarrhea since chemo last sunday History of Any Multi-Drug Resistant Organisms: None Reported Past Surgical History: Heart Catheterization, Orthopedic Surgery Additional Past Surgical History / Comment(s): back surg, neck surg, right nipple removed due to pain benign, nerve damage to left side, skin cancer re moved ear and face Past Anesthesia/Blood Transfusion Reactions: No Reported Reaction Additional Past Anesthesia/Blood Transfusion Reaction / Comment(s): no blood transfusion Past Psychological History: No Psychological Hx Reported Smoking Status: Former smoker Past Alcohol Use History: None Reported Past Drug Use History: None Reported - Past Family History Mother Family Medical History: Cancer, CVA/TIA Additional Family Medical History / Comment(s): skin Father Family Medical History: Myocardial Infarction ([place]) Additional Family Medical History / Comment(s): chf Medications and Allergies Home Medications Medication Instructions Recorded Confirmed Type Apixaban [Eliquis] 5 mg PO BID 03/16/23 08/30/23 History Diltiazem Cd [Cardizem CD] 240 mg PO DAILY 03/16/23 08/30/23 History Metoprolol Tartrate [Lopressor] 12.5 mg PO BID 03/16/23 08/30/23 History Aspirin 81 mg PO DAILY 90 Days #90 tab 03/19/23 08/30/23 Rx Ipratropium-Albuterol Nebulize 3 ml INHALATION RT-QID 30 Days 03/19/23 08/30/23 Rx [Duoneb 0.5 mg-3 mg/3 ml Soln] #120 each Famotidine [Pepcid] 20 mg PO DAILY 06/01/23 08/30/23 History Furosemide [Lasix] 40 mg PO BID 06/01/23 08/30/23 History Gabapentin 300 mg PO BID 06/01/23 08/30/23 History HYDROcodone/APAP 5-325MG [[place] 1 tab PO Q8H PRN 07/31/23 08/30/23 History 5-325] Levothyroxine Sodium [Synthroid] 50 mcg PO DAILY 07/31/23 08/30/23 History metFORMIN HCL [Glucophage] 500 mg PO BID 07/31/23 08/30/23 History Citalopram Hydrobromide 10 mg PO DAILY 08/13/23 08/30/23 History [Citalopram HBr] Glimepiride 1 mg PO DAILY 08/13/23 08/30/23 History Ondansetron [Zofran] 4 mg PO Q8H PRN 08/13/23 08/30/23 History Albuterol Sulfate [Albuterol 2 puff PO RT-Q6H PRN 08/30/23 08/30/23 History Sulfate Hfa] Rosuvastatin [Crestor] 10 mg PO HS 08/30/23 08/30/23 History Zolpidem Tartrate [Ambien] 5 mg PO HS 08/30/23 08/30/23 History predniSONE See Taper PO DIRECTED 08/30/23 08/30/23 History Allergies Allergy/AdvReac Type Severity Reaction Status Date / Time cephalexin [From Keflex] Allergy Mild Rash/Hives Verified 08/30/23 07:32 codeine Allergy Mild Rash/Hives Verified 08/30/23 07:32 Physical Exam Vitals: Vital Signs Temp Pulse Resp BP Pulse Ox 08/30/23 14:27 97.3 F L 82 22 94/74 96 08/30/23 09:08 93 18 128/87 93 L 08/30/23 08:00 88 18 114/80 93 L 08/30/23 04:00 86 18 94/61 96 08/30/23 03:00 64 24 95/70 96 08/30/23 01:31 68 22 92/45 96 08/30/23 00:46 98.4 F 61 18 101/55 96 Intake and Output 08/30/23 08/30/23 08/30/23 06:59 14:59 22:59 Intake Total 122.712 Balance 122.712 Intake: Intake, IV Titration 122.712 Amount Heparin Sod,Pork in 0.45% 122.712 NaCl 25,000 unit In 0.45 % NaCl 1 250ml.bag @ 18 UNITS/KG/HR 14.696 mls/hr IV .Q17H1M [facility] Rx#: [id number] Other: Weight 81.647 kg Physical Exam: Revealed a 77-year-old white male pleasant in no distress Head: Atraumatic normocephalic HEENT:[Neck is supple.] [No neck masses.] [No thyromegaly.] [No JVD.] Chest: Diminished breath sounds at the bases no crackles or rhonchi or wheezes Cardiac Exam: Irregular irregular rhythm [Normal S1 and S2, no S3 gallop, no murmur.] Abdomen: [Soft, nontender, no megaly, no rebound, no guarding, normal bowel sounds.] Extremities: [No clubbing, no edema, no cyanosis.] Neurological Exam: [No focal neurologic deficit.] Alert and oriented 3. Psychiatric: Normal mood, affect and normal mental status examination Skin: No rashes Results - Laboratory Findings CBC and BMP: 08/30/23 01:07 08/30/23 01:07 PT/INR, D-dimer D-Dimer 0.52 mg/L FEU (<0.60) 08/30/23 01:07 Abnormal lab findings: Abnormal Labs 08/30/23 08/30/23 08/30/23 01:07 01:07 01:07 Hgb 11.4 L Hct 36.2 L MCV 77.4 L MCH 24.5 L RDW 23.5 H APTT Sodium 134 L Carbon Dioxide 18 L BUN 36 H Glucose 62 L Albumin 3.4 L SARS-CoV-2 (PCR) Detected A 08/30/23 08:53 Hgb Hct MCV MCH RDW APTT 94.0 H Sodium Carbon Dioxide BUN Glucose Albumin SARS-CoV-2 (PCR) - Diagnostic Findings Chest x-ray: image reviewed (As noted in HPI) Assessment and Plan Assessment: Impression: Possible pulmonary embolism however considering the normal troponin level, I'm actually doubting that diagnosis of pulmonary embolism, not to mention the patient has been on eliquis all along, compliant with it, I am beginning to doubt that the patient actually has pulmonary embolism. History of non-small cell lung cancer, patient has received chemotherapy and radiation therapy continues to follow up with oncology History of underlying COPD presently stable Chronic atrial fibrillation Benign essential hypertension Type 2 diabetes Ex-smoker Moderate severe aortic stenosis History of GERD Recommendation: Continue heparin for now Repeat CT angiogram of the chest in a.m. Hematology to see on consultation Resume home meds including his bronchodilators Continue oxygen and titrate accordingly GI and DVT prophylaxis We will continue to follow Time with Patient: Greater than 30
[2023-08-30 20:17] LABS: Glucose,Whole Blood 120 mg/dL (70-110)
--- NOTE | 2023-08-30 21:05 | P.CONS ---
History of Present Illness - Reason for Consult Consult date: 08/30/23 hx NSCLC Requesting physician: Vijay Rogers - Chief Complaint PE, COVID - History of Present Illness Mr. Carlson is a 77-year-old gentleman with a past medical history significant for COPD, prior cigarette smoking, atrial fibrillation, and NSCLC. He is a patient of Dr. Dat Vaca. He had a CT scan of the chest performed without contrast on 03/17/2023 during hospitalization for expressive aphasia, which revealed right medial lower lung volume loss and consolidation with air bronchograms. This was suspicious for pneumonia, however malignancy cannot be excluded. Enlarged subcarinal lymph node was also noted in addition to advanced COPD, pulmonary fibrosis, and dilated pulmonary artery concerning for pulmonary arterial hypertension. Follow-up CT of the chest with contrast on 05/23/2023 at noted endobronchial obstructions in the right upper and right lower lobes concerning for mucous plugging, but also for potential malignancy. Mild mediastinal lymphadenopathy was also noted. CT of the abdomen and pelvis with contrast on 05/23/2023 revealed no evidence of metastatic malignancy. Bronchoscopy performed on 06/06/2023 noted poorly differentiated non-small cell carcinoma in the brushing smears and tip of the right lower lobe. 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 PET/CT on 07/06/2023 noted FDG avid right lower lobe lesion measuring 3.4 cm in addition to right hilar and subcarinal lymphadenopathy that was FDG avid with no evidence of distant metastatic disease. 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 He was started on concurrent chemoradiotherapy with cycle 1 weekly carboplatin/paclitaxel on 07/31/2023, and completed cycle 3 on 08/14, and treatment has been on hold due to recent COVID infection. Patient presented to the emergency room with complaints of shortness of breath. He initially presented to [facility] and upon presentation CTA chest revealed right upper lobe and right lower lobe pulmonary embolism and lower lung interstitial opacities. CXR revealed mild vascular congestion. He was started on heparin and was transferred to [facility]. Patient reports he was diagnosed with COVID approximately 2 weeks ago. Patient is on Eliquis 5 mg twice daily for history of atrial fibrillation. He denies any missed doses. Serial troponins negative. BNP 1550. D dimer 0.52. CBC reviewed, WBC 7.1, hemoglobin 11.4, platelets 166,000. Creatinine 0.86. Review of Systems 10 point ROS is negative except as stated in the HPI Past Medical History Past Medical History: Atrial Fibrillation, Cancer, COPD, Diabetes Mellitus, GERD/Reflux, Hyperlipidemia, Hypertension, Pneumonia, Thyroid Disorder Additional Past Medical History / Comment(s): hx foot swelling and drainage left healing, taking lasix for this, was very painful, , ultrasound done on 05/31/23 lung cancer 06/18, chemo and radiation. diarrhea since chemo last sunday History of Any Multi-Drug Resistant Organisms: None Reported Past Surgical History: Heart Catheterization, Orthopedic Surgery Additional Past Surgical History / Comment(s): back surg, neck surg, right nipple removed due to pain benign, nerve damage to left side, skin cancer rem cesar ear and face Past Anesthesia/Blood Transfusion Reactions: No Reported Reaction Additional Past Anesthesia/Blood Transfusion Reaction / Comm: no blood transfusion Past Psychological History: No Psychological Hx Reported Smoking Status: Former smoker Past Alcohol Use History: None Reported Past Drug Use History: None Reported - Past Family History Mother Family Medical History: Cancer, CVA/TIA Additional Family Medical History / Comment(s): skin Father Family Medical History: Myocardial Infarction ([place]) Additional Family Medical History / Comment(s): chf Medications and Allergies Home Medications Medication Instructions Recorded Confirmed Type Diltiazem Cd [Cardizem CD] 240 mg PO DAILY 03/16/23 08/30/23 History Metoprolol Tartrate [Lopressor] 12.5 mg PO BID 03/16/23 08/30/23 History Aspirin 81 mg PO DAILY 90 Days #90 tab 03/19/23 08/30/23 Rx Ipratropium-Albuterol Nebulize 3 ml INHALATION RT-QID 30 Days 03/19/23 08/30/23 Rx [Duoneb 0.5 mg-3 mg/3 ml Soln] #120 each Famotidine [Pepcid] 20 mg PO DAILY 06/01/23 08/30/23 History Furosemide [Lasix] 40 mg PO BID 06/01/23 08/30/23 History Gabapentin 300 mg PO BID 06/01/23 08/30/23 History HYDROcodone/APAP 5-325MG [[place] 1 tab PO Q8H PRN 07/31/23 08/30/23 History 5-325] Levothyroxine Sodium [Synthroid] 50 mcg PO DAILY 07/31/23 08/30/23 History metFORMIN HCL [Glucophage] 500 mg PO BID 07/31/23 08/30/23 History Citalopram Hydrobromide 10 mg PO DAILY 08/13/23 08/30/23 History [Citalopram HBr] Glimepiride 1 mg PO DAILY 08/13/23 08/30/23 History Ondansetron [Zofran] 4 mg PO Q8H PRN 08/13/23 08/30/23 History Albuterol Sulfate [Albuterol 2 puff PO RT-Q6H PRN 08/30/23 08/30/23 History Sulfate Hfa] Dabigatran [Pradaxa] 150 mg PO BID #60 capsule 08/30/23 Rx Rosuvastatin [Crestor] 10 mg PO HS 08/30/23 08/30/23 History Zolpidem Tartrate [Ambien] 5 mg PO HS 08/30/23 08/30/23 History predniSONE See Taper PO DIRECTED 08/30/23 08/30/23 History Allergies Allergy/AdvReac Type Severity Reaction Status Date / Time cephalexin [From Keflex] Allergy Mild Rash/Hives Verified 08/30/23 07:32 codeine Allergy Mild Rash/Hives Verified 08/30/23 07:32 Physical Exam Vitals: Vital Signs Temp Pulse Resp BP Pulse Ox 08/30/23 09:08 93 18 128/87 93 L 08/30/23 08:00 88 18 114/80 93 L 08/30/23 04:00 86 18 94/61 96 08/30/23 03:00 64 24 95/70 96 08/30/23 01:31 68 22 92/45 96 08/30/23 00:46 98.4 F 61 18 101/55 96 Intake and Output 08/29/23 08/30/23 08/30/23 22:59 06:59 14:59 Other: Weight 81.647 kg - Constitutional General appearance: average body habitus, no acute distress - EENT Eyes: anicteric sclerae, EOMI ENT: hearing grossly normal - Respiratory Respiratory: bilateral: diminished - Cardiovascular Rhythm: regular Heart sounds: normal: S1, S2 - Gastrointestinal General gastrointestinal: soft, no tenderness - Integumentary Integumentary: no cyanotic - Neurologic grossly intact - Musculoskeletal Musculoskeletal: generalized weakness - Psychiatric Psychiatric: A&O x's 3 Results CBC & Chem 7: 08/30/23 01:07 08/30/23 01:07 Labs: Abnormal Lab Results - Last 24 Hours (Table) 08/30/23 08/30/23 08/30/23 Range/Units 01:07 01:07 01:07 Hgb 11.4 L (13.0-17.5) gm/dL Hct 36.2 L (39.0-53.0) % MCV 77.4 L (80.0-100.0) fL MCH 24.5 L (25.0-35.0) pg RDW 23.5 H (11.5-15.5) % APTT (22.0-30.0) sec Sodium 134 L (137-145) mmol/L Carbon Dioxide 18 L (22-30) mmol/L BUN 36 H (9-20) mg/dL Glucose 62 L (74-99) mg/dL Albumin 3.4 L (3.5-5.0) g/dL SARS-CoV-2 (PCR) Detected A (Not Detectd) 08/30/23 Range/Units 08:53 Hgb (13.0-17.5) gm/dL Hct (39.0-53.0) % MCV (80.0-100.0) fL MCH (25.0-35.0) pg RDW (11.5-15.5) % APTT 94.0 H (22.0-30.0) sec Sodium (137-145) mmol/L Carbon Dioxide (22-30) mmol/L BUN (9-20) mg/dL Glucose (74-99) mg/dL Albumin (3.5-5.0) g/dL SARS-CoV-2 (PCR) (Not Detectd) Chest x-ray: report reviewed Assessment and Plan (1) COVID Current Visit: Yes Status: Acute Priority: High Code(s): U07.1 - COVID-19 SNOMED Code(s): 537199178 (2) Acute exacerbation of chronic obstructive pulmonary disease Current Visit: Yes Status: Acute Priority: High Code(s): J44.1 - CHRONIC OBSTRUCTIVE PULMONARY DISEASE W (ACUTE) EXACERBATION SNOMED Code(s): 649976615 (3) Bilateral pulmonary embolism Current Visit: Yes Status: Acute Priority: High Code(s): I26.99 - OTHER PULMONARY EMBOLISM WITHOUT ACUTE COR PULMONALE SNOMED Code(s): 11390356 (4) Lung cancer Current Visit: Yes Status: Acute Priority: High Code(s): C34.90 - MALIGNANT NEOPLASM OF UNSP PART OF UNSP BRONCHUS OR LUNG SNOMED Code(s): 405351010 Plan: Pulmonary embolism: -Presented with complaints of progressing shortness of breath. Recent COVID diagnosis. CTA chest at [facility] right upper lobe and right lower lobe pulmonary embolism and lower lung interstitial opacities. He was started on heparin and was transferred to [facility]. -Patient is on Eliquis 5 mg twice daily for history of atrial fibrillation. He denies any missed doses. -D dimer normal at 0.52. Reviewed pulmonology notes, not certain if patient actually has PE. Are considering repeating CTA chest -Will await further recommendations from pulmonology, but at this point, based on imaging and interpretation of scans obtained at transferring facility, would have to assume this is eliquis failure. Prescription sent to outpt pharmacy for pradaxa, and consult to case management placed for prior auth. If pulmonology repeats scan and does not believe CT scan is consistent with PE, then patient can resume eliquis NSCLC: -Full history in [facility] -Started on concurrent chemoradiotherapy with cycle 1 weekly carboplatin/paclitaxel on 07/31/2023, and completed cycle 3 on 08/14. Treatment has been on hold due to recent COVID infection -Will schedule clinic f/u upon discharge to ensure pt has adequately recovered before proceeding with treatment -F/u in discharge plan attests: I have seen and examined pt, performed H&P, developed impression and plan of care. Discussed with dictator. Agree with documentation, dictated as a scribe.
[2023-08-30] MEDS: ATORVASTATIN 20 MG TAB PO SCH (21:15)
[2023-08-30] MEDS ORDERED: ZINC OXIDE PASTE (Z-GUARD) 1 APPLIC TOPICAL PRN (21:26)
[2023-08-30] MEDS: MELATONIN 5 MG TABLET PO PRN (21:50)
[2023-08-31 04:10] LABS: Anisocytosis Marked; Basophils % (A) 0 %; Eosinophils % (A) 1 %; HCT 32.6 % (39.0-53.0); HGB 10.3 gm/dL (13.0-17.5); Hypochromasia Moderate; Lymphocytes # (A) 0.4 k/uL (1.0-4.8); Lymphocytes % (A) 9 %; MCH 24.7 pg (25.0-35.0); MCHC 31.7 g/dL (31.0-37.0); MCV 78.1 fL (80.0-100.0); Mean Platelet Volume 8.3; Microcytosis Moderate; Monocytes # (A) 0.2 k/uL (0-1.0); Monocytes % (A) 4 %; Neutrophils # (A) 4.3 k/uL (1.3-7.7); Neutrophils % (A) 85 %; Platelet Count 162 k/uL (150-450); Poikilocytosis Slight; RBC 4.18 m/uL (4.30-5.90); RDW 24.3 % (11.5-15.5); WBC 5.1 k/uL (3.8-10.6)
[2023-08-31 04:46] LABS: ALT 21 U/L (4-49); AST 26 U/L (17-59); African American GFR (CKD) >90 (>60 ml/min/1.73 sqM); Albumin 2.9 g/dL (3.5-5.0); Alkaline Phosphatase 96 U/L (38-126); Anion Gap 9 mmol/L; Blood Urea Nitrogen 27 mg/dL (9-20); Calcium 8.4 mg/dL (8.4-10.2); Carbon Dioxide 20 mmol/L (22-30); Chloride 107 mmol/L (98-107); Glucose 86 mg/dL (74-99); Magnesium 1.5 mg/dL (1.6-2.3); Non-African American GFR(CKD) >90 (>60 ml/min/1.73 sqM); Phosphorus 3.4 mg/dL (2.5-4.5); Sodium 136 mmol/L (137-145); Total Bilirubin 0.6 mg/dL (0.2-1.3)
[2023-08-31] MEDS ORDERED: MAG HYDROX/AL HYDROX/SIMETH 30 ML CUP PO PRN (04:56)
[2023-08-31] MEDS: LEVOTHYROXINE 50 MCG TAB PO SCH (05:11)
[2023-08-31] MEDS: PANTOPRAZOLE 40 MG TABLET PO SCH (05:11)
[2023-08-31 05:45] LABS: Glucose,Whole Blood 112 mg/dL (70-110)
[2023-08-31] MEDS ORDERED: POTASSIUM CHLORIDE ER 20 MEQ TAB.ER PO STA (07:36)
[2023-08-31] MEDS: DILTIAZEM CD 240 MG CAP.ER.24H PO SCH (09:40)
[2023-08-31] MEDS: METOPROLOL TARTRATE 12.5 MG TAB PO SCH ×2 (09:40→20:08)
[2023-08-31] MEDS: SODIUM CHLORIDE 0.9% 1,000 ML IV SCH ×2 (09:40→18:16)
[2023-08-31] MEDS: FUROSEMIDE 40 MG TAB PO SCH ×2 (09:40→16:58)
[2023-08-31] MEDS: ASPIRIN 81 MG PO SCH (09:40)
[2023-08-31] MEDS: MAGNESIUM SULFATE-D5W PMX 1 GM in DEXTROSE/WATER 1 100ML.BAG IVPB SCH ×2 (09:50→12:01)
[2023-08-31 11:32] LABS: Glucose,Whole Blood 95 mg/dL (70-110)
--- NOTE | 2023-08-31 11:40 | CT ---
EXAMINATION TYPE: CT chest angio for PE DATE OF EXAM: 08/31/2023 COMPARISON: Chest x-ray from yesterday. PET/CT July 06, 2023 HISTORY: PE, history of metastatic lung cancer CT DLP: 341.5 mGycm. Automated Exposure Control for Dose Reduction was Utilized. CONTRAST: CTA scan of the thorax is performed without and with IV Contrast, patient injected with 100 ml mL of Isovue 370, pulmonary embolism protocol. MIP Images are created on CT scanner and reviewed. FINDINGS: LUNGS: Underlying emphysematous changes redemonstrated. There is persistent right-sided volume loss a nd irregular scarring throughout the posterior upper lung. Parenchymal opacities with reticulation in the bilateral lower lungs show interval progression from prior study. More central nodularity in the right mid lung near the hilum extending posteriorly is redemonstrated consistent with active neoplas m. No pleural effusion or pneumothorax seen. MEDIASTINUM: There is satisfactory enhancement of the pulmonary artery and its branches, there is no CT evidence for pulmonary embolism. Prominent pulmonary arteries redemonstrated. No cardiomegaly or p ericardial effusion. Coronary artery calcification redemonstrated. Calcification of level of the aort ic valve redemonstrated. Persistent enlarged right hilar and subcarinal lymph nodes similar to most r ecent PET/CT. OTHER: Multilevel spurring in the thoracic spine. IMPRESSION: No CT evidence for acute pulmonary embolism. Redemonstration of right lung post treatment changes with recurrent active neoplasm towards the right hilum. There are new opacities in bilateral lower lungs could reflect edema versus infiltrates versus product of interval attempted treatment fr om most recent PET/CT.
[2023-08-31] MEDS: POTASSIUM CHLORIDE 10 MEQ in WATER FOR INJECTION 1 100ML.BAG IVPB SCH ×4 (13:02→20:08)
--- NOTE | 2023-08-31 14:48 | P.PN ---
Subjective Progress Note Date: 08/31/23 Reason for Consult (text): PE History of present illness: History of present illness: This is a 77 year old male patient of Dr. Puckett with past medical history of hypertension, dyslipidemia, diabetes, overweight, smoking history, permanent atrial fibrillation, COPD. We have been asked to evaluate the patient for pulmonary embolism. Patient initially presented to [facility] and had a CTA of the chest done at [place] revealed right upper and lower lobe segmental pulmonary emboli. Question of additional incompletely occlusive embol i versus mixing artifact at the right upper lobe. Increased prominence of interstitial opacities of the lower lungs which may be related to infection or inflammatory change. In the emergency center at at [place], patient was diagnosed with multilobar pulmonary emboli, probable CAPD, lung cancer, anticoagulant state and Covid 19 viral syndrome. Patient was transferred to [facility]. The patient is in isolation for Covid 19. He has frequent coughing. Patient is seen today in the emergency center waiting for a bed on the cardiac stepdown unit. Vital signs are stable. EKG atrial fibrillation with ventricular rate of 87 bpm Chest x-ray: Mild vascular congestion D-dimer 0.52. Hemoglobin 11.4, WBC 7.1, platelet count 166. BUN 36 creatinine 0.86, sodium 134, potassium 4.3. Troponin negative 3. ProBNP 1550. Liver function tests are normal. Influenza A, influenza B, RSV not detected. Covid 19 detected. Home cardiac medications: Eliquis 5 mg twice daily, aspirin 81 mg daily, heart is on CD 240 mg daily, Lasix 40 mg twice daily, Lopressor 12.5 mg twice daily, Crestor 10 mg at bedtime, also on levothyroxine 50 g daily Echocardiogram performed 11/13/2022 revealed EF normal, moderate MR, moderate AR, moderate AF. 08/31 Patient is seen today on the cardiac stepdown unit. Echocardiogram reveals EF of 50%, moderate aortic stenosis and [id number] regurgitation. No significant pulmonary hypertension. Heart rate is in the 70s, blood pressure 97/55, pulse ox 93% on room air. Physical examination: Gen: This is a 77-year-old male. He is resting and appears to be comfortable and in no acute distress. VS: reviewed Full examination deferred due to Covid 19 NEUROLOGICAL: Patient is awake, alert and oriented x3. Assessment: Segmental pulmonary emboli Failed eliquis Permanent atrial fibrillation, rate controlled Hypertension Dyslipidemia Diabetes Smoking history COPD Lung cancer Plan: Resume patient's home cardiac medications Continue heparin drip and anticoagulation will be determined by pulmonary medicine and hematology No further cardiac workup at this time Cardiology will sign off this case and follow on an as-needed basis. Please reconsult for any new concerns. Nurse practitioner note has been reviewed, I agree with documented findings and plan of care. Patient was seen and examined. Objective - Vital Signs Vital signs: Vital Signs Temp 97.4 F L 08/31/23 09:45 Pulse 75 08/31/23 09:45 Resp 18 08/31/23 09:45 BP 97/55 08/31/23 09:45 Pulse Ox 93 L 08/31/23 09:45 FiO2 Intake & Output 08/30/23 08/31/23 08/31/23 18:59 06:59 18:59 Intake Total 122.712 269.622 240 Output Total 250 Balance 122.712 19.622 240 Weight 81.647 kg Intake: Intake, IV Titration 122.712 269.622 0 Amount Heparin Sod,Pork in 0.45% 122.712 269.622 0 NaCl 25,000 unit In 0.45 % NaCl 1 250ml.bag @ 18 UNITS/KG/HR 14.696 mls/hr IV .Q17H1M [facility] Rx#: [id number] Oral 240 Output: Urine 250 Other: Voiding Method Toilet Toilet - Labs CBC & Chem 7: 08/31/23 03:16 08/31/23 03:16 Labs: Abnormal Lab Results - Last 24 Hours (Table) 08/30/23 08/30/23 08/31/23 Range/Units 18:29 20:15 03:16 RBC 4.18 L (4.30-5.90) m/uL Hgb 10.3 L (13.0-17.5) gm/dL Hct 32.6 L (39.0-53.0) % MCV 78.1 L (80.0-100.0) fL MCH 24.7 L (25.0-35.0) pg RDW 24.3 H (11.5-15.5) % Lymphocytes # 0.4 L (1.0-4.8) k/uL APTT 32.8 H (22.0-30.0) sec Sodium (137-145) mmol/L Potassium (3.5-5.1) mmol/L Carbon Dioxide (22-30) mmol/L BUN (9-20) mg/dL POC Glucose (mg/dL) 120 H (70-110) mg/dL Magnesium (1.6-2.3) mg/dL Total Protein (6.3-8.2) g/dL Albumin (3.5-5.0) g/dL 08/31/23 08/31/23 08/31/23 Range/Units 03:16 03:16 05:44 RBC (4.30-5.90) m/uL Hgb (13.0-17.5) gm/dL Hct (39.0-53.0) % MCV (80.0-100.0) fL MCH (25.0-35.0) pg RDW (11.5-15.5) % Lymphocytes # (1.0-4.8) k/uL APTT >200.0 H* (22.0-30.0) sec Sodium 136 L (137-145) mmol/L Potassium 3.0 L (3.5-5.1) mmol/L Carbon Dioxide 20 L (22-30) mmol/L BUN 27 H (9-20) mg/dL POC Glucose (mg/dL) 112 H (70-110) mg/dL Magnesium 1.5 L (1.6-2.3) mg/dL Total Protein 6.0 L (6.3-8.2) g/dL Albumin 2.9 L (3.5-5.0) g/dL
--- NOTE | 2023-08-31 16:05 | P.PN ---
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 Patient was referred to Dr. Vaca , and he underwent chemo and radiation. PET scan at the time showed significant uptake in the right lower lobe malignancy as well as in the pulmonary hilum and the sacrum. There was also some uptake in the left lateral rib #8. Patient is also known to have history of diabetes, chronic atrial fibrillation maintained on eliquis, and at this time the patient was seen at [facility] with shortness of breath CT angiogram of the chest sh owed pulmonary emboli. There was also evidence of prominent interstitial opacities in the lower lungs, not to mention the patient had a recent COVID-19 infection back around [place], and continues to have some intermittent cough along with shortness of breath. Patient was transferred to [facility], I saw the patient, and I recommended that the patient remains on heparin for now, obviously the patient may have failed eliquis considering the patient has been very compliant with his eliquis for his chronic atrial fibrillation. For now we'll treat the patient with heparin and will consult hematology to address other anticoagulation therapy since the patient failed eliquis. In the ER the patient seems to be very comfortable, not in any distress, on room air, his O2 sat sugars was 96%, blood pressure was 94/74, and again patient seems to be very comfortable and relatively asymptomatic except for shortness of breath on exertion, and intermittent cough. Chest x-ray showed nonspecific changes in the lower lobes, most likely related to his previous diagnosed of bronchogenic carcinoma especially in the right lower lobe area. Slight prominence of the pulmonary vasculature is noted. WBC count is 7.1 hemoglobin 11.4 basic metabolic profile is normal PTT is 94. His d-dimer is only 0.52, which makes me doubt that evening on his CT angiogram of the chest, May have to consider repeating the CT angiogram on this patient before transitioning to different anticoagulation therapy Reevaluated today on 08/31/23, patient is feeling better, continues to have some shortness of breath, intermittent cough and wheezing, but overall improved compared to his baseline. CT angiogram of the chest showed nonspecific changes and definitely no evidence of pulmonary embolism. As the patient could be restarted back on his eliquis. WBC count is 5.1 hemoglobin 10.3, PTT today was over 200, basic metabolic profile is normal and renal profile is Objective - Vital Signs Vital signs: Vital Signs Temp 98.1 F 08/31/23 15:47 Pulse 71 08/31/23 15:47 Resp 18 08/31/23 15:47 BP 107/65 08/31/23 15:47 Pulse Ox 96 08/31/23 15:47 FiO2 Intake & Output 08/30/23 08/31/23 08/31/23 18:59 06:59 18:59 Intake Total 122.712 269.622 240 Output Total 250 Balance 122.712 19.622 240 Weight 81.647 kg Intake: Intake, IV Titration 122.712 269.622 0 Amount Heparin Sod,Pork in 0.45% 122.712 269.622 0 NaCl 25,000 unit In 0.45 % NaCl 1 250ml.bag @ 18 UNITS/KG/HR 14.696 mls/hr IV .Q17H1M [facility] Rx#: [id number] Oral 240 Output: Urine 250 Other: Voiding Method Toilet Toilet - Exam Physical Exam: Revealed a 77-year-old white male pleasant in no distress, on room air Head: Atraumatic normocephalic HEENT:[Neck is supple.] [No neck masses.] [No thyromegaly.] [No JVD.] Chest: Diminished breath sounds at the bases no crackles or rhonchi or wheezes Cardiac Exam: Irregular irregular rhythm [Normal S1 and S2, no S3 gallop, no murmur.] Abdomen: [Soft, nontender, no megaly, no rebound, no guarding, normal bowel sounds.] Extremities: [No clubbing, no edema, no cyanosis.] Neurological Exam: [No focal neurologic deficit.] Alert and oriented 3. Psychiatric: Normal mood, affect and normal mental status examination Skin: No rashes - Labs CBC & Chem 7: 08/31/23 03:16 08/31/23 03:16 Labs: Abnormal Lab Results - Last 24 Hours (Table) 08/30/23 08/30/23 08/31/23 Range/Units 18:29 20:15 03:16 RBC 4.18 L (4.30-5.90) m/uL Hgb 10.3 L (13.0-17.5) gm/dL Hct 32.6 L (39.0-53.0) % MCV 78.1 L (80.0-100.0) fL MCH 24.7 L (25.0-35.0) pg RDW 24.3 H (11.5-15.5) % Lymphocytes # 0.4 L (1.0-4.8) k/uL APTT 32.8 H (22.0-30.0) sec Sodium (137-145) mmol/L Potassium (3.5-5.1) mmol/L Carbon Dioxide (22-30) mmol/L BUN (9-20) mg/dL POC Glucose (mg/dL) 120 H (70-110) mg/dL Magnesium (1.6-2.3) mg/dL Total Protein (6.3-8.2) g/dL Albumin (3.5-5.0) g/dL 08/31/23 08/31/23 08/31/23 Range/Units 03:16 03:16 05:44 RBC (4.30-5.90) m/uL Hgb (13.0-17.5) gm/dL Hct (39.0-53.0) % MCV (80.0-100.0) fL MCH (25.0-35.0) pg RDW (11.5-15.5) % Lymphocytes # (1.0-4.8) k/uL APTT >200.0 H* (22.0-30.0) sec Sodium 136 L (137-145) mmol/L Potassium 3.0 L (3.5-5.1) mmol/L Carbon Dioxide 20 L (22-30) mmol/L BUN 27 H (9-20) mg/dL POC Glucose (mg/dL) 112 H (70-110) mg/dL Magnesium 1.5 L (1.6-2.3) mg/dL Total Protein 6.0 L (6.3-8.2) g/dL Albumin 2.9 L (3.5-5.0) g/dL Assessment and Plan Assessment: Impression: Shortness of breath, multifactorial related to COPD and non-small cell lung cancer as well as chronic atrial fibrillation. No evidence of pulmonary embolism based on repeat CT angiogram of the chest History of non-small cell lung cancer, patient has received chemotherapy and radiation therapy continues to follow up with oncology History of underlying COPD presently minimally active Chronic atrial fibrillation Benign essential hypertension Type 2 diabetes Ex-smoker Moderate severe aortic stenosis History of GERD Recommendation: Reviewed and discussed with the patient his CT angiogram of the chest and explained to him that he does not have pulmonary embolism Patient to resume back his eliquis no need to change since he does not even have pulmonary embolism Resume home meds including his bronchodilators Consider discharge planning in the next 24 hours GI and DVT prophylaxis We will continue to follow Time with Patient: Less than 30
[2023-08-31 16:48] LABS: Glucose,Whole Blood 164 mg/dL (70-110)
--- NOTE | 2023-08-31 16:53 | P.PN ---
Subjective Progress Note Date: 08/31/23 Patient is a 77-year-old male with a PMH of recently diagnosed non-small cell lung cancer (currently receiving chemotherapy and radiation, following with Dr Vaca), A. fib on Eliquis, type II DM, hypertension, anxiety, who was transferred from [facility] where he had presented to the emergency room with complaints of shortness of breath. Patient reports he was diagnosed with COVID around [place] and has had gradually worsening shortness of breath. Reports a chronic nonproductive cough. Denies lower extremity swelling or pain. Denies chest discomfort, fever, chills, nausea, vomiting, abdominal pain, diarrhea. The patient underwent an extensive evaluation at [facility] which was all reviewed with CT angiogram of chest revealed right upper and lower lobe segmental pulmonary emboli with lower lung interstitial opacities concerning for infectious etiology. EKG at our facility revealed A. fib at 87 bpm with an incomplete right bundle branch block as reviewed by me. Chest x-ray revealed generalized mild opacities. Laboratory evaluation revealed COVID PCR positive. The patient's SpO2 in the emergency room was 96% on room air. 08/30 Patient was seen and examined. Currently on RA. Feeling better. Complains of difficulty urinating. CBC Hg 11.4, MCV 77.4. D-Dimer 0.52. BMP Na 134, bicarb 18, BUN 36, glu 62. Troponin < 0.012 x 2. BNP 1550. Currently on heparin drip at 18 units/kg/hr. 08/31 Patient was seen and examined. Breathing better. Saturating 90% on RA. Onc ology recommends starting Pradaxa. Pulmonology recommends repeat CTA chest. Maintained on Heparin drip. CBC Hg 10.3, Hct 32.6, MCV 78.1. APTT > 200. CMP Na 136, K 3, bicarb 20, BUN 27, Mag 1.5, alb 2.9. Echo shows EF 50% with mild con LVH, mod-severe AV calcification, mild-mod AR/, trace TR. Vital signs reviewed General: non toxic, no distress, appears at stated age, normal weight Derm: no unusual rashes/lesions, warm Head: atraumatic, normocephalic, symmetric Eyes: EOMI, no lid lag, anicteric sclera ENT: Nose and ears atraumatic Neck: No cervical lymphadenopathy, trachea midline, supple Cardiovascular: S1S2 reg, no murmur Lungs: CTA bilateral, no rhonchi, no rales, no accessory muscle use Ext: muscle strength 4 out of 5 in all 4 extremities grossly, no gross muscle atrophy, no contractures, Neuro: no gross focal neuro deficits Psych: Alert, oriented, appropriate affect Based on my assessment of this patient, this patient meets a high complexity level of care. Patient has an acute diagnosis of PE in the setting of COVID 19 while on Eliquis that poses a threat to life or bodily function. Pulmonary embolus: Heparin drip at 18 units/kg/hr. Obtain Echocardiogram. Telemetry monitoring. Oncology and Pulmonology consult. Hypokalemia: KCl 40 meq PO and 40 meq IV. HypoMag Mag sulfate IV. Urinary retention: Bladder scan PRN. Straight cath if needed. COVID 19: No specific treatment. Not on oxygen. Supportive management. Diabetes mellitus with Hypoglycemia: Accuchecks ACHS. Microcytic anemia: Chronic and stable. Transfuse if Hg < 7. Prerenal azotemia with metabolic acidosis: Dehydration. Continue NS at 75 cc/hr. Chronic conditions: non-small cell lung cancer (currently receiving chemotherapy and radiation, following with Dr Vaca), A. fib on Eliquis, type II DM, hyper tension, anxiety CODE STATUS: FULL CODE DVT Prophylaxis: Heparin drip GI Prophylaxis: Designated medical POA if patient is not able to make medical decisions for themselves: I have reviewed the following documentation consultant notes: Pulmonology, Oncology. I have reviewed the results of the following tests: Echo, CBC, CMP, Mag I have ordered the following tests: CTA chest, BMP I have discussed the care of this patient with the following independent historian: I have independently interpreted the following test below: I have discussed the management of this patient with the following physician: This patient has a high risk of morbidity due to the following reasons: Patient requires IV heparin which requires intensive monitoring for toxicity (coag panel) and bleeding. Objective - Vital Signs Vital signs: Vital Signs Temp 97.7 F 08/30/23 20:00 Pulse 68 08/31/23 04:00 Resp 18 08/31/23 04:00 BP 103/59 08/31/23 04:00 Pulse Ox 93 L 08/31/23 04:00 FiO2 Intake & Output 0108/31/23 08/31/23 18:59 06:59 18:59 Intake Total 122.712 269.622 Output Total 250 Balance 122.712 19.622 Weight 81.647 kg Intake: Intake, IV Titration 122.712 269.622 Amount Heparin Sod,Pork in 0.45% 122.712 269.622 NaCl 25,000 unit In 0.45 % NaCl 1 250ml.bag @ 18 UNITS/KG/HR 14.696 mls/hr IV .Q17H1M [facility] Rx#: [id number] Output: Urine 250 Other: Voiding Method Toilet - Labs CBC & Chem 7: 08/31/23 03:16 08/31/23 03:16 Labs: Abnormal Lab Results - Last 24 Hours (Table) 08/30/23 08/30/23 08/30/23 Range/Units 08:53 18:29 20:15 RBC (4.30-5.90) m/uL Hgb (13.0-17.5) gm/dL Hct (39.0-53.0) % MCV (80.0-100.0) fL MCH (25.0-35.0) pg RDW (11.5-15.5) % Lymphocytes # (1.0-4.8) k/uL APTT 94.0 H 32.8 H (22.0-30.0) sec Sodium (137-145) mmol/L Potassium (3.5-5.1) mmol/L Carbon Dioxide (22-30) mmol/L BUN (9-20) mg/dL POC Glucose (mg/dL) 120 H (70-110) mg/dL Magnesium (1.6-2.3) mg/dL Total Protein (6.3-8.2) g/dL Albumin (3.5-5.0) g/dL 08/31/23 08/31/23 08/31/23 Range/Units 03:16 03:16 03:16 RBC 4.18 L (4.30-5.90) m/uL Hgb 10.3 L (13.0-17.5) gm/dL Hct 32.6 L (39.0-53.0) % MCV 78.1 L (80.0-100.0) fL MCH 24.7 L (25.0-35.0) pg RDW 24.3 H (11.5-15.5) % Lymphocytes # 0.4 L (1.0-4.8) k/uL APTT >200.0 H* (22.0-30.0) sec Sodium 136 L (137-145) mmol/L Potassium 3.0 L (3.5-5.1) mmol/L Carbon Dioxide 20 L (22-30) mmol/L BUN 27 H (9-20) mg/dL POC Glucose (mg/dL) (70-110) mg/dL Magnesium 1.5 L (1.6-2.3) mg/dL Total Protein 6.0 L (6.3-8.2) g/dL Albumin 2.9 L (3.5-5.0) g/dL 08/31/23 Range/Units 05:44 RBC (4.30-5.90) m/uL Hgb (13.0-17.5) gm/dL Hct (39.0-53.0) % MCV (80.0-100.0) fL MCH (25.0-35.0) pg RDW (11.5-15.5) % Lymphocytes # (1.0-4.8) k/uL APTT (22.0-30.0) sec Sodium (137-145) mmol/L Potassium (3.5-5.1) mmol/L Carbon Dioxide (22-30) mmol/L BUN (9-20) mg/dL POC Glucose (mg/dL) 112 H (70-110) mg/dL Magnesium (1.6-2.3) mg/dL Total Protein (6.3-8.2) g/dL Albumin (3.5-5.0) g/dL
[2023-08-31] MEDS: HEPARIN SOD,PORK IN 0.45% NACL 25,000 UNIT in 0.45% NACL 1 250ML.BAG IV SCH (18:15)
[2023-08-31 19:55] LABS: Glucose,Whole Blood 184 mg/dL (70-110)
[2023-08-31] MEDS: ATORVASTATIN 20 MG TAB PO SCH (20:08)
[2023-08-31] MEDS: APIXABAN 5 MG TAB PO SCH (20:08)
[2023-09-01] MEDS: MELATONIN 5 MG TABLET PO PRN (00:15)
[2023-09-01] MEDS: SODIUM CHLORIDE 0.9% 1,000 ML IV SCH (00:15)
[2023-09-01] MEDS: LEVOTHYROXINE 50 MCG TAB PO SCH (06:09)
[2023-09-01] MEDS: PANTOPRAZOLE 40 MG TABLET PO SCH (06:09)
[2023-09-01 06:29] LABS: Glucose,Whole Blood 112 mg/dL (70-110)
[2023-09-01] MEDS: FUROSEMIDE 40 MG TAB PO SCH (08:37)
[2023-09-01] MEDS: APIXABAN 5 MG TAB PO SCH (08:38)
[2023-09-01] MEDS: ASPIRIN 81 MG PO SCH (08:38)
[2023-09-01] MEDS: DILTIAZEM CD 240 MG CAP.ER.24H PO SCH (08:38)
[2023-09-01] MEDS: METOPROLOL TARTRATE 12.5 MG TAB PO SCH (08:38)
[2023-09-01 08:50] VITALS: RESP 18; TEMP 97.3
[2023-09-01 09:19] LABS: African American GFR (CKD) >90 (>60 ml/min/1.73 sqM); Anion Gap 11 mmol/L; Blood Urea Nitrogen 20 mg/dL (9-20); Calcium 8.3 mg/dL (8.4-10.2); Carbon Dioxide 20 mmol/L (22-30); Chloride 109 mmol/L (98-107); Glucose 110 mg/dL (74-99); Magnesium 1.7 mg/dL (1.6-2.3); Non-African American GFR(CKD) >90 (>60 ml/min/1.73 sqM); Potassium 3.9 mmol/L (3.5-5.1); Sodium 140 mmol/L (137-145)
[2023-09-01 11:29] LABS: Glucose,Whole Blood 184 mg/dL (70-110)
[2023-09-01 12:30] VITALS: BP 105/67; PULSE 78
--- NOTE | 2023-09-01 14:08 | P.PN ---
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 Patient was referred to Dr. Vaca , and he underwent chemo and radiation. PET scan at the time showed significant uptake in the right lower lobe malignancy as well as in the pulmonary hilum and the sacrum. There was also some uptake in the left lateral rib #8. Patient is also known to have history of diabetes, chronic atrial fibrillation maintained on eliquis, and at this time the patient was seen at [facility] with shortness of breath CT angiogram of the chest sh owed pulmonary emboli. There was also evidence of prominent interstitial opacities in the lower lungs, not to mention the patient had a recent COVID-19 infection back around [place], and continues to have some intermittent cough along with shortness of breath. Patient was transferred to [facility], I saw the patient, and I recommended that the patient remains on heparin for now, obviously the patient may have failed eliquis considering the patient has been very compliant with his eliquis for his chronic atrial fibrillation. For now we'll treat the patient with heparin and will consult hematology to address other anticoagulation therapy since the patient failed eliquis. In the ER the patient seems to be very comfortable, not in any distress, on room air, his O2 sat sugars was 96%, blood pressure was 94/74, and again patient seems to be very comfortable and relatively asymptomatic except for shortness of breath on exertion, and intermittent cough. Chest x-ray showed nonspecific changes in the lower lobes, most likely related to his previous diagnosed of bronchogenic carcinoma especially in the right lower lobe area. Slight prominence of the pulmonary vasculature is noted. WBC count is 7.1 hemoglobin 11.4 basic metabolic profile is normal PTT is 94. His d-dimer is only 0.52, which makes me doubt that evening on his CT angiogram of the chest, May have to consider repeating the CT angiogram on this patient before transitioning to different anticoagulation therapy Reevaluated today on 08/31/23, patient is feeling better, continues to have some shortness of breath, intermittent cough and wheezing, but overall improved compared to his baseline. CT angiogram of the chest showed nonspecific changes and definitely no evidence of pulmonary embolism. As the patient could be restarted back on his eliquis. WBC count is 5.1 hemoglobin 10.3, PTT today was over 200, basic metabolic profile is normal and renal profile is normal Reevaluated today on 09/01/23, patient is doing well, much better now compared to how he felt initially, made aware that his CT angiogram of the chest showed no evidence of pulmonary embolism and now his back on eliquis. I believe the patient should be considered for discharge home, he could be sent home on option if he qualifies. Obviously his O2 saturation on room air is 87% and the patient has O2 sats of 97% on 2 L basic metabolic profile is normal renal profile is normal. Objective - Vital Signs Vital signs: Vital Signs Temp 97.3 F L 09/01/23 08:32 Pulse 78 09/01/23 12:21 Resp 18 09/01/23 12:21 BP 105/67 09/01/23 12:21 Pulse Ox 97 09/01/23 12:21 FiO2 Intake & Output 08/31/23 09/01/23 09/01/23 18:59 06:59 18:59 Intake Total 480 Balance 480 Intake: Intake, IV Titration 0 Amount Heparin Sod,Pork in 0.45% 0 NaCl 25,000 unit In 0.45 % NaCl 1 250ml.bag @ 18 UNITS/KG/HR 14.696 mls/hr IV .Q17H1M [facility] Rx#: [id number] Oral 480 Other: Voiding Method Toilet Toilet Toilet # Voids 1 700 - Exam Physical Exam: Revealed a 77-year-old white male pleasant in no distress, on 2 L nasal cannula Head: Atraumatic normocephalic HEENT:[Neck is supple.] [No neck masses.] [No thyromegaly.] [No JVD.] Chest: Diminished breath sounds at the bases no crackles or rhonchi or wheezes Cardiac Exam: Irregular irregular rhythm [Normal S1 and S2, no S3 gallop, no murmur.] Abdomen: [Soft, nontender, no megaly, no rebound, no guarding, normal bowel sounds.] Extremities: [No clubbing, no edema, no cyanosis.] Neurological Exam: [No focal neurologic deficit.] Alert and oriented 3. Psychiatric: Normal mood, affect and normal mental status examination Skin: No rashes - Labs CBC & Chem 7: 08/31/23 03:16 09/01/23 07:58 Labs: Abnormal Lab Results - Last 24 Hours (Table) 08/31/23 08/31/23 08/31/23 Range/Units 16:34 16:35 19:54 APTT 59.0 H (22.0-30.0) sec Chloride (98-107) mmol/L Carbon Dioxide (22-30) mmol/L Glucose (74-99) mg/dL POC Glucose (mg/dL) 164 H 184 H (70-110) mg/dL Calcium (8.4-10.2) mg/dL 09/01/23 09/01/23 09/01/23 Range/Units 06:28 07:58 11:28 APTT (22.0-30.0) sec Chloride 109 H (98-107) mmol/L Carbon Dioxide 20 L (22-30) mmol/L Glucose 110 H (74-99) mg/dL POC Glucose (mg/dL) 112 H 184 H (70-110) mg/dL Calcium 8.3 L (8.4-10.2) mg/dL Assessment and Plan Assessment: Impression: Shortness of breath, multifactorial related to COPD and non-small cell lung cancer as well as chronic atrial fibrillation. No evidence of pulmonary embolism based on repeat CT angiogram of the chest History of non-small cell lung cancer, patient has received chemotherapy and radiation therapy continues to follow up with oncology History of underlying COPD presently minimally active Chronic atrial fibrillation Benign essential hypertension Type 2 diabetes Ex-smoker Moderate severe aortic stenosis History of GERD Recommendation: This is a discharging the patient home on oxygen Resume his eliquis Resume his bronchodilators as taken at home Patient to see me in the office within 1-2 weeks postdischarge. Cleared by me for discharge if cleared by other consultants. Time with Patient: Less than 30
--- NOTE | 2023-09-01 14:51 | P.DS ---
Providers Date of admission: 08/30/23 02:33 Expected date of discharge: 09/01/23 Attending physician: Amberly Gruber MD Consults: 08/30/23 02:31 Consult Physician Routine Consulting Provider: Dat Vaca Consult Reason/Comments: known Do you want consulting provider notified?: Yes Consult Physician Urgent Consulting Provider: Jeovanny Puckett Consult Reason/Comments: PE Do you want consulting provider notified?: Yes 08/30/23 08:10 Consult Physician Routine Consulting Provider: Esther Rouse Consult Reason/Comments: PE Do you want consulting provider notified?: Yes Primary care physician: Orlando Barnes MD Hospital Course: Patient is a 77-year-old male with a PMH of recently diagnosed non-small cell lung cancer (currently receiving chemotherapy and radiation, following with Dr Vaca), A. fib on Eliquis, type II DM, hypertension, anxiety, who was transferred from [facility] where he had presented to the emergency room with complaints of shortness of breath. Patient reports he was diagnosed with COVID around [place] and has had gradually worsening shortness of breath. Reports a chronic nonproductive cough. Denies lower extremity swelling or p ain. Denies chest discomfort, fever, chills, nausea, vomiting, abdominal pain, diarrhea. The patient underwent an extensive evaluation at [facility] which was all reviewed with CT angiogram of chest revealed right upper and lower lobe segmental pulmonary emboli with lower lung interstitial opacities concerning for infectious etiology. EKG at our facility revealed A. fib at 87 bpm with an incomplete right bundle branch block as reviewed by me. Chest x-ray revealed generalized mild opacities. Laboratory evaluation revealed COVID PCR positive. The patient's SpO2 in the emergency room was 96% on room air. 08/30 Patient was seen and examined. Currently on RA. Feeling better. Complains of difficulty urinating. CBC Hg 11.4, MCV 77.4. D-Dimer 0.52. BMP Na 134, bicarb 18, BUN 36, glu 62. Troponin < 0.012 x 2. BNP 1550. Currently on heparin drip at 18 units/kg/hr. 08/31 Patient was seen and examined. Breathing better. Saturating 90% on RA. Oncology recommends starting Pradaxa. Pulmonology recommends repeat CTA chest. Maintained on Heparin drip. CBC Hg 10.3, Hct 32.6, MCV 78.1. APTT > 200. CMP Na 136, K 3, bicarb 20, BUN 27, Mag 1.5, alb 2.9. Echo shows EF 50% with mild con LVH, mod-severe AV calcification, mild-mod AR/, trace TR. 09/01 Patient was seen and examined. States he feels at baseline and would like to go home. CTA chest was negative for PE. Heparin drip discontinued and patient restarted back on Eliquis. Procal is negative, no concerns for pneumonia. He does require 2L NC to maintain O2 saturation. Home Oxygen is ordered. Hopeful plans for discharge home if he can obtain home O2. Vital signs reviewed General: non toxic, no distress, appears at stated age, normal weight Derm: no unusual rashes/lesions, warm Head: atraumatic, normocephalic, symmetric Eyes: EOMI, no lid lag, anicteric sclera ENT: Nose and ears atraumatic Neck: No cervical lymphadenopathy, trachea midline, supple Cardiovascular: S1S2 reg, no murmur Lungs: CTA bilateral, no rhonchi, no rales, no accessory muscle use Ext: muscle strength 4 out of 5 in all 4 extremities grossly, no gross muscle atrophy, no contractures, Neuro: no gross focal neuro deficits Psych: Alert, oriented, appropriate affect Discharge Diagnosis: Acute hypoxic respiratory failure in the setting of Lung CA, COVID and COPD Pulmonary embolus ruled out Urinary retention COVID 19 Diabetes mellitus with Hypoglycemia Microcytic anemia Prerenal azotemia with metabolic acidosis Resolved: HypoK, HypoMag Chronic conditions: non-small cell lung cancer (currently receiving chemotherapy and radiation, following with Dr Vaca), A. fib on Eliquis, type II DM, hypertension, anxiety This complex discharge took 35 minutes to complete. Patient Condition at Discharge: Fair Plan - Discharge Summary Discharge Rx Participant: Yes New Discharge Prescriptions: New Apixaban [Eliquis] 5 mg PO BID tab Continue Aspirin 81 mg PO DAILY 90 Days #90 tab Ipratropium-Albuterol Nebulize [Duoneb 0.5 mg-3 mg/3 ml Soln] 3 ml INHALATION RT-QID 30 Days #120 each Furosemide [Lasix] 40 mg PO BID Levothyroxine Sodium [Synthroid] 50 mcg PO DAILY HYDROcodone/APAP 5-325MG [[place] 5-325] 1 tab PO Q8H PRN PRN Reason: Pain metFORMIN HCL [Glucophage] 500 mg PO BID Citalopram Hydrobromide [Citalopram HBr] 10 mg PO DAILY Ondansetron [Zofran] 4 mg PO Q8H PRN PRN Reason: Nausea And Vomiting Rosuvastatin [Crestor] 10 mg PO HS Albuterol Sulfate [Albuterol Sulfate Hfa] 2 puff PO RT-Q6H PRN PRN Reason: Shortness Of Breath Metoprolol Tartrate [Lopressor] 12.5 mg PO BID Diltiazem Cd [Cardizem CD] 240 mg PO DAILY Gabapentin 300 mg PO BID Famotidine [Pepcid] 20 mg PO DAILY Glimepiride 1 mg PO DAILY predniSONE See Taper PO DIRECTED Zolpidem Tartrate [Ambien] 5 mg PO HS Discharge Medication List Diltiazem Cd [Cardizem CD] 240 mg PO DAILY 03/16/23 [History] Metoprolol Tartrate [Lopressor] 12.5 mg PO BID 03/16/23 [History] Aspirin 81 mg PO DAILY 90 Days #90 tab 03/19/23 [Rx] Ipratropium-Albuterol Nebulize [Duoneb 0.5 mg-3 mg/3 ml Soln] 3 ml INHALATION RT-QID 30 Days #120 each 03/19/23 [Rx] Famotidine [Pepcid] 20 mg PO DAILY 06/01/23 [History] Furosemide [Lasix] 40 mg PO BID 06/01/23 [History] Gabapentin 300 mg PO BID 06/01/23 [History] HYDROcodone/APAP 5-325MG [[place] 5-325] 1 tab PO Q8H PRN 07/31/23 [History] Levothyroxine Sodium [Synthroid] 50 mcg PO DAILY 07/31/23 [History] metFORMIN HCL [Glucophage] 500 mg PO BID 07/31/23 [History] Citalopram Hydrobromide [Citalopram HBr] 10 mg PO DAILY 08/13/23 [History] Glimepiride 1 mg PO DAILY 08/13/23 [History] Ondansetron [Zofran] 4 mg PO Q8H PRN 08/13/23 [History] Albuterol Sulfate [Albuterol Sulfate Hfa] 2 puff PO RT-Q6H PRN 08/30/23 [History] Rosuvastatin [Crestor] 10 mg PO HS 08/30/23 [History] Zolpidem Tartrate [Ambien] 5 mg PO HS 08/30/23 [History] predniSONE See Taper PO DIRECTED 08/30/23 [History] Apixaban [Eliquis] 5 mg PO BID tab 09/01/23 [Rx] Follow up Appointment(s)/Referral(s): Esther Rouse MD [STAFF PHYSICIAN] - 1 Week Alvina Ramos NPC [Nurse Practitioner] - 09/06/23 10:00 am ([address] office behind [facility] ) Ken Meléndez MD [STAFF PHYSICIAN] - 1 Week Orlando Barnes MD [Primary Care Provider] - 1-2 days Discharge Disposition: HOME SELF-CARE
== END 2023-09-01 15:43 | disposition home or self-care (01) | DRG 177 ==
LOC: EC 23:57 → 4SSUR 08-30 02:33 → 3SCARD 08-30 02:48 → 4SSUR 08-30 02:49 → 3SCARD 08-30 02:50
PROVIDERS: ADMIT Internal Medicine; ATTEND Internal Medicine
DX: U07.1 COVID-19 (principal); J96.01 Acute respiratory failure with hypoxia; C34.31 Malignant neoplasm of lower lobe, right bronchus or lung; D68.9 Coagulation defect, unspecified; E87.20 Acidosis, unspecified; I48.21 Permanent atrial fibrillation; J44.1 Chronic obstructive pulmonary disease with (acute) exacerbation; R47.01 Aphasia; D50.9 Iron deficiency anemia, unspecified; E11.649 Type 2 diabetes mellitus with hypoglycemia without coma; E78.5 Hyperlipidemia, unspecified; E83.42 Hypomagnesemia; E86.0 Dehydration; E87.6 Hypokalemia; I08.0 Rheumatic disorders of both mitral and aortic valves; I11.0 Hypertensive heart disease with heart failure; I45.10 Unspecified right bundle-branch block; I50.9 Heart failure, unspecified; J84.10 Pulmonary fibrosis, unspecified; K21.9 Gastro-esophageal reflux disease without esophagitis; R33.9 Retention of urine, unspecified; R19.7 Diarrhea, unspecified; F41.9 Anxiety disorder, unspecified; Z79.82 Long term (current) use of aspirin; Z79.01 Long term (current) use of anticoagulants; Z79.84 Long term (current) use of oral hypoglycemic drugs; Z79.890 Hormone replacement therapy; Z79.899 Other long term (current) drug therapy; Z82.49 Family history of ischemic heart disease and other diseases of the circulatory system; Z85.118 Personal history of other malignant neoplasm of bronchus and lung; Z85.828 Personal history of other malignant neoplasm of skin; Z92.21 Personal history of antineoplastic chemotherapy; Z92.3 Personal history of irradiation; Z88.1 Allergy status to other antibiotic agents; Z88.5 Allergy status to narcotic agent; Z87.01 Personal history of pneumonia (recurrent); Z79.52 Long term (current) use of systemic steroids
CPT/HCPCS: 36415; 51798; 71045; 71275; 80048; 80053; 83735; 83880; 84100; 84145; 84484; 85025; 85027; 85379; 85730; 87636; 93005; 93306; 96365; 96366; 99285

== ENCOUNTER 2023-10-03 07:41 | Emergency (ER) | payer MEDICARE, SELFPAY ==
[2023-10-03 08:06] VITALS: RESP 18; TEMP 97.8
--- NOTE | 2023-10-03 08:31 | CT ---
EXAMINATION TYPE: CT brain heide gusman con DATE OF EXAM: 10/03/2023 COMPARISON: None HISTORY: Fall CT DLP: 1511.[address] of the brain was performed. The ventricles, basal cisterns and sulci overlying the cerebral convexities demonstrate mild/moderate enlargement. There is no evidence for intracranial hemorrhage or sulcal effacement. There is decreased attenuatio n about the periventricular white matter and deep white matter of both cerebral hemispheres, compatib le with chronic small vessel ischemia. No mass effects are seen. If symptoms persist consider MRI. Osseous calvarium is intact. IMPRESSION: 1. Age related atrophic and chronic small vessel ischemic change without acute intracranial process seen at this time. CT Cervical Spine: Unenhanced CT of the cervical spine was performed with bone and soft tissue window settings submitted . Coronal and sagittal reconstruction is obtained. There is normal alignment and prevertebral soft tissues. No evidence for acute cervical fracture . Postoperative changes noted of ACDF at C5-C7. Appropriate postoperative alignment. Scattered degenera tive disc disease and spondylosis. Biapical scarring and emphysematous change with underlying fibrosi s. IMPRESSION: 1. No evidence for acute fracture or subluxation of the cervical spine.
--- NOTE | 2023-10-03 09:00 | ED ---
General Adult HPI - General Stated complaint: Fall, On Thinner w/Head Lac Time Seen by Provider: 10/03/23 07:42 Source: patient, EMS, RN notes reviewed Mode of arrival: EMS Limitations: no limitations - History of Present Illness Initial comments: 77-year-old male presents emergency department via EMS for complaint of head injury. Patient states he had diarrhea from his chemotherapy this morning states that he was cleaning up and states that he lost his balance falling forward striking his head. Patient is on Eliquis. He states he is mild headache he was placed in c-collar by EMS. He does have notable hematoma, abrasion no significant bleeding otherwise. No extremity injuries no chest pain denies increasing shortness of breath or any other acute symptoms. - Related Data Home Medications Medication Instructions Recorded Confirmed Diltiazem Cd [Cardizem CD] 240 mg PO DAILY 03/16/23 10/02/23 Metoprolol Tartrate [Lopressor] 12.5 mg PO BID 03/16/23 10/02/23 Famotidine [Pepcid] 20 mg PO DAILY 06/01/23 10/02/23 Furosemide [Lasix] 40 mg PO BID 06/01/23 10/02/23 Gabapentin 300 mg PO BID 06/01/23 10/02/23 HYDROcodone/APAP 5-325MG [[place] 1 tab PO Q8H PRN 07/31/23 10/02/23 5-325] Levothyroxine Sodium [Synthroid] 50 mcg PO DAILY 07/31/23 10/02/23 metFORMIN HCL [Glucophage] 500 mg PO BID 07/31/23 10/02/23 Citalopram Hydrobromide 10 mg PO DAILY 08/13/23 10/02/23 [Citalopram HBr] Glimepiride 1 mg PO DAILY 08/13/23 10/02/23 Ondansetron [Zofran] 4 mg PO Q8H PRN 08/13/23 10/02/23 Albuterol Sulfate [Albuterol 2 puff PO RT-Q6H PRN 08/30/23 10/02/23 Sulfate Hfa] Rosuvastatin [Crestor] 10 mg PO HS 08/30/23 10/02/23 Zolpidem Tartrate [Ambien] 5 mg PO HS 08/30/23 10/02/23 predniSONE See Taper PO DIRECTED 08/30/23 10/02/23 Previous Rx's Medication Instructions Recorded Aspirin 81 mg PO DAILY 90 Days #90 tab 03/19/23 Ipratropium-Albuterol Nebulize 3 ml INHALATION RT-QID 30 Days 03/19/23 [Duoneb 0.5 mg-3 mg/3 ml Soln] #120 each Apixaban [Eliquis] 5 mg PO BID tab 09/01/23 Allergies Allergy/AdvReac Type Severity Reaction Status Date / Time cephalexin [From Keflex] Allergy Mild Rash/Hives Verified 10/03/23 07:48 codeine Allergy Mild Rash/Hives Verified 10/03/23 07:48 Review of Systems ROS Statement: Those systems with pertinent positive or pertinent negative responses have been documented in the HPI. ROS Other: All systems not noted in ROS Statement are negative. Past Medical History Past Medical History: Atrial Fibrillation, Cancer, COPD, Diabetes Mellitus, GERD/Reflux, Hyperlipidemia, Hypertension, Pneumonia, Thyroid Disorder Additional Past Medical History / Comment(s): hx foot swelling and drainage left healing, taking lasix for this, was very painful, , ultrasound done on 05/31/23 lung cancer 06/18, chemo and radiation. diarrhea since chemo last sunday History of Any Multi-Drug Resistant Organisms: None Reported Past Surgical History: Heart Catheterization, Orthopedic Surgery Additional Past Surgical History / Comment(s): back surg, neck surg, right nipple removed due to pain benign, nerve damage to left side, skin cancer removed ear and face Past Anesthesia/Blood Transfusion Reactions: No Reported Reaction Additional Past Anesthesia/Blood Transfusion Reaction / Comment(s): no blood transfusion Past Psychological History: No Psychological Hx Reported Smoking Status: Former smoker Past Alcohol Use History: None Reported Past Drug Use History: None Reported - Past Family History Mother Family Medical History: Cancer, CVA/TIA Additional Family Medical History / Comment(s): skin Father Family Medical History: Myocardial Infarction ([place]) Additional Family Medical History / Comment(s): chf General Exam Limitations: no limitations General appearance: alert, in no apparent distress Head exam: Present: normocephalic. Absent: atraumatic, normal inspection (Large hematoma, abrasion) Eye exam: Present: normal appearance, PERRL, EOMI. Absent: scleral icterus, conjunctival injection, periorbital swelling ENT exam: Present: normal exam, normal oropharynx, mucous membranes moist Neck exam: Present: normal inspection, full ROM. Absent: tenderness, meningismus, lymphadenopathy Respiratory exam: Present: normal lung sounds bilaterally. Absent: respiratory distress, wheezes, rales, rhonchi, stridor Cardiovascular Exam: Present: normal rhythm, tachycardia, normal heart sounds. Absent: systolic murmur, diastolic murmur, rubs, gallop, clicks Neurological exam: Present: alert, oriented X3, CN II-XII intact, reflexes normal. Absent: motor sensory deficit Course Vital Signs 10/03/23 10/03/23 07:42 09:27 Temperature 97.8 F Pulse Rate 110 H 98 Respiratory 18 18 Rate Blood Pressure 100/74 107/73 O2 Sat by Pulse 94 L 94 L Oximetry Medical Decision Making - Medical Decision Making Was pt. sent in by a medical professional or institution ([facility], TI[employer] DESIGN ENGINEER, urgent care, hospital, or senior care...) When possible be specific @ -No Did you speak to anyone other than the patient for history (EMS, parent, family, police, friend...)? What history was obtained from this source @ -Female and EMS provided past medical history Did you review nursing and triage notes (agree or disagree)? Why? @ -I reviewed and agree with nursing and triage notes Were old charts reviewed (outside hosp., previous admission, EMS record, old EKG, old radiological studies, urgent care reports/EKG's, senior care records)? Report findings @ -No old charts were reviewed Differential Diagnosis (chest pain, altered mental status, abdominal pain women, abdominal pain men, vaginal bleeding, weakness, fever, dyspnea, syncope, headache, dizziness, GI bleed, back pain, seizure, CVA, palpatations, mental health, musculoskeletal)? @ -[Fall, intracranial hemorrhage, scalp hematoma, abrasion EKG interpreted by me (3pts min.). @ -None X-rays interpreted by me (1pt min.). @ -[None done CT interpreted by me (1pt min.). @ -CT brain, C-spine showing atrophy, no intracranial hemorrhage or mass effect no cervical fracture U/S interpreted by me (1pt. min.). @ -None done What testing was considered but not performed or refused? (CT, X-rays, U/S, labs)? Why? @ -None What meds were considered but not given or refused? Why? @ -None Did you discuss the management of the patient with other professionals (professionals i.e. , PA, TIRE DESIGN ENGINEER, lab, RT, psych nurse, social director, manuscript reader, teacher, credit officer, case management specialist)? Give summary @ -No Was smoking cessation discussed for >3mins.? @ -No Was critical care preformed (if so, how long)? @ -No Were there social determinants of health that impacted care today? How? (Homelessness, low income, unemployed, alcoholism, drug addiction, transportation, low edu. Level, literacy, decrease access to med. care, group home, rehab)? @ -No Was there de-escalation of care discussed even if they declined (Discuss DNR or withdrawal of care, Hospice)? DNR status @ -No What co-morbidities impacted this encounter? (DM, HTN, Smoking, COPD, CAD, Cancer, CVA, ARF, Chemo, Hep., AIDS, mental health diagnosis, sleep apnea, morbid obesity)? @ -Lungs CA Was patient admitted / discharged? Hospital course, mention meds given and route, prescriptions, significant lab abnormalities, going to OR and other pertinent info. @ -[Discharge patient presenting after fall, head injury on blood thinners. CT showed no acute process. Patient is stable he has no current complaints other mild headache will be discharged in stable condition Undiagnosed new problem with uncertain prognosis? @ -No Drug Therapy requiring intensive monitoring for toxicity (Heparin, Nitro, Insulin, Cardizem)? @ -No Were any procedures done? @ -No Diagnosis/symptom? @ -[Fall, scalp hematoma, abrasion Acute, or Chronic, or Acute on Chronic? @ -Acute Uncomplicated (without systemic symptoms) or Complicated (systemic symptoms)? @ -Uncomplicated Side effects of treatment? @ -No Exacerbation, Progression, or Severe Exacerbation? @ -No Poses a threat to life or bodily function? How? (Chest pain, [place], [place], pneumonia, PE, COPD, DKA, ARF, appy, cholecystitis, CVA, Diverticulitis, Homicidal, Suicidal, threat to staff... and all critical care pts) @ -No Disposition Clinical Impression: Fall, Scalp abrasion, Scalp hematoma Disposition: HOME SELF-CARE Condition: Stable Instructions (If sedation given, give patient instructions): Head Injury (ED) Additional Instructions: Please return to the emergency department for any worsening symptoms or any other concerns Is patient prescribed a controlled substance at d/c from ED?: No Referrals: Orlando Barnes MD [Primary Care Provider] - 1-2 days Time of Disposition: 09:00
[2023-10-03 09:43] VITALS: BP 107/73; PULSE 98
== END 2023-10-03 09:32 | disposition home or self-care (01) ==
LOC: EC 07:41
DX: S00.03XA Contusion of scalp, initial encounter (principal); J44.9 Chronic obstructive pulmonary disease, unspecified; I48.91 Unspecified atrial fibrillation; K21.9 Gastro-esophageal reflux disease without esophagitis; E78.5 Hyperlipidemia, unspecified; I10 Essential (primary) hypertension; E07.9 Disorder of thyroid, unspecified; Z87.891 Personal history of nicotine dependence; Z79.84 Long term (current) use of oral hypoglycemic drugs; Z79.899 Other long term (current) drug therapy; Z79.890 Hormone replacement therapy; Z88.5 Allergy status to narcotic agent; Z88.8 Allergy status to other drugs, medicaments and biological substances; W18.30XA Fall on same level, unspecified, initial encounter
CPT/HCPCS: 70450; 72125; 99284

== ENCOUNTER 2023-10-12 10:32 | Inpatient (IN) | payer MEDICARE, SELFPAY ==
[2023-10-12] MEDS: SODIUM CHLORIDE 0.9% 500 ML 500 ML IV ONE (11:09)
[2023-10-12 11:28] LABS: Anisocytosis Marked; HCT 35.6 % (39.0-53.0); HGB 11.6 gm/dL (13.0-17.5); Hypochromasia Slight; MCH 29.1 pg (25.0-35.0); MCHC 32.6 g/dL (31.0-37.0); MCV 89.2 fL (80.0-100.0); Macrocytosis Slight; Mean Platelet Volume 7.8; Microcytosis Slight; Poikilocytosis Slight; RDW 24.4 % (11.5-15.5)
[2023-10-12 11:34] LABS: WBC 0.8 k/uL (3.8-10.6)
[2023-10-12 12:15] LABS: Platelet Count 31 k/uL (150-450)
[2023-10-12 12:16] LABS: Ovalocytes Present; Tear Drop Cells Present
--- NOTE | 2023-10-12 13:31 | XR ---
EXAMINATION TYPE: XR chest 2V DATE OF EXAM: 10/12/2023 COMPARISON: NONE HISTORY: Difficulty breathing. TECHNIQUE: Frontal and lateral views of the chest are obtained. IMPRESSION: There is extensive patchy parenchymal changes seen throughout the lungs bilaterally which would raise the possibility of an inflammatory or infectious process and multifocal pneumonia. A component of ed chidi would also be a consideration. The cardiac silhouette does not appear enlarged. There are likely small bilateral pleural effusions.
[2023-10-12] MEDS ORDERED: VANCOMYCIN IV PER PHARMACY 1 EACH MISC MISCELLANE PRN (14:57)
--- NOTE | 2023-10-12 14:57 | ED ---
General Adult HPI - General Chief complaint: Recheck/Abnormal Lab/Rx Stated complaint: Sepsis Source: patient Mode of arrival: EMS Limitations: no limitations - History of Present Illness Initial comments: This is a 77-year-old male who presents to the emergency department from [facility]. Patient comes in with a history of esophageal cancer history of atrial fibrillation. Patient had chemotherapy a while ago and radiation this past Sunday. Patient showed up to the ER because of weakness and fell they diagnosed with 2 rib fractures and a compression fracture T2 and T4. Patient also had pancytopenia and had pneumonia and they considered him septic so I started him on Vanco and Zosyn and sent him down here. Patient's pressure was a little soft while they were at [place] they gave him 3 L of fluid by the time he arrived at our ER. Patient himself states he feels fine he is not complaining of any pain and if always the same to him he would just assume go home. - Related Data Home Medications Medication Instructions Recorded Confirmed Metoprolol Tartrate [Lopressor] 12.5 mg PO BID 03/16/23 10/12/23 Famotidine [Pepcid] 20 mg PO DAILY 06/01/23 10/12/23 Gabapentin 300 mg PO BID 06/01/23 10/12/23 HYDROcodone/APAP 5-325MG [[place] 1 tab PO QID PRN 07/31/23 10/12/23 5-325] metFORMIN HCL [Glucophage] 500 mg PO BID 07/31/23 10/12/23 Citalopram Hydrobromide 10 mg PO DAILY 08/13/23 10/12/23 [Citalopram HBr] Glimepiride 1 mg PO DAILY 08/13/23 10/12/23 Ondansetron [Zofran] 4 mg PO Q8H PRN 08/13/23 10/12/23 Zolpidem Tartrate [Ambien] 5 mg PO HS 08/30/23 10/12/23 Atorvastatin [Lipitor] 40 mg PO HS 10/12/23 10/12/23 Furosemide [Lasix] 40 mg PO BID 10/12/23 10/12/23 Omeprazole [PriLOSEC] 40 mg PO DAILY 10/12/23 10/12/23 Potassium Chloride ER [K-Dur 20] 20 meq PO DAILY 10/12/23 10/12/23 dilTIAZem HCL [Cardizem CD] 240 mg PO DAILY 10/12/23 10/12/23 Previous Rx's Medication Instructions Recorded Aspirin 81 mg PO DAILY 90 Days #90 tab 03/19/23 Apixaban [Eliquis] 5 mg PO BID tab 09/01/23 Allergies Allergy/AdvReac Type Severity Reaction Status Date / Time cephalexin [From Keflex] Allergy Mild Rash/Hives Verified 10/12/23 11:55 codeine Allergy Mild Rash/Hives Verified 10/12/23 11:55 Review of Systems ROS Statement: Those systems with pertinent positive or pertinent negative responses have been documented in the HPI. ROS Other: All systems not noted in ROS Statement are negative. Past Medical History Past Medical History: Atrial Fibrillation, Cancer, COPD, Diabetes Mellitus, GERD/Reflux, Hyperlipidemia, Hypertension, Pneumonia, Thyroid Disorder Additional Past Medical History / Comment(s): hx foot swelling and drainage left healing, taking lasix for this, was very painful, , ultrasound done on 05/31/23 lung cancer 06/18, chemo and radiation. diarrhea since chemo last sunday History of Any Multi-Drug Resistant Organisms: None Reported Past Surgical History: Heart Catheterization, Orthopedic Surgery Additional Past Surgical History / Comment(s): back surg, neck surg, right nipp le removed due to pain benign, nerve damage to left side, skin cancer removed ear and face Past Anesthesia/Blood Transfusion Reactions: No Reported Reaction Additional Past Anesthesia/Blood Transfusion Reaction / Comment(s): no blood transfusion Past Psychological History: No Psychological Hx Reported Smoking Status: Former smoker Past Alcohol Use History: None Reported Past Drug Use History: None Reported - Past Family History Mother Family Medical History: Cancer, CVA/TIA Additional Family Medical History / Comment(s): skin Father Family Medical History: Myocardial Infarction ([place]) Additional Family Medical History / Comment(s): chf General Exam - General Exam Comments Initial Comments: GENERAL: Patient is well-developed and well-nourished. Patient is nontoxic and well- hydrated and is in mild distress. ENT: Neck is soft and supple. No significant lymphadenopathy is noted. Oropharynx is clear. Moist mucous membranes. Neck has full range of motion without eliciting any pain. EYES: The sclera were anicteric and conjunctiva were pink and moist. Extraocular movements were intact and pupils were equal round and reactive to light. Eyelids were unremarkable. PULMONARY: Unlabored respirations. Good breath sounds bilaterally. Crackles bilateral bases CARDIOVASCULAR: There is a regular rate and rhythm without any murmurs gallops or rubs. ABDOMEN: Soft and nontender with normal bowel sounds. SKIN: Patient has some bruising about the face. NEUROLOGIC: Patient is alert and oriented x3. Cranial nerves II through XII are grossly intact. Motor and sensory are also intact. Normal speech, volume and content. Symmetrical smile. MUSCULOSKELETAL: Normal extremities with adequate strength and full range of motion. No lower extremity swelling or edema. No calf tenderness. LYMPHATICS: No significant lymphadenopathy is noted PSYCHIATRIC: Normal psychiatric evaluation. Limitations: no limitations Course Vital Signs 10/12/23 10/12/23 10/12/23 10:36 11:11 11:26 Temperature 97.4 F L Pulse Rate 89 64 116 H Pulse Rate [ Field Pipe Lines Supervisor ] Respiratory 18 18 24 Rate Blood Pressure 98/63 102/55 82/63 O2 Sat by Pulse 88 L 89 L 92 L Oximetry 10/12/23 10/12/23 10/12/23 11:47 13:19 14:34 Temperature 97.3 F L Pulse Rate 122 H 112 H Pulse Rate [ 112 H Field Pipe Lines Supervisor ] Respiratory 22 22 Rate Blood Pressure 96/54 88/71 O2 Sat by Pulse 94 L 94 L Oximetry 10/12/23 14:40 Temperature Pulse Rate 120 H Pulse Rate [ Field Pipe Lines Supervisor ] Respiratory 18 Rate Blood Pressure 95/81 O2 Sat by Pulse 95 Oximetry Medical Decision Making - Medical Decision Making EKG is interpreted by myself EKG shows atrial fibrillation at a rate of 104 bpm QRS is 110 QT interval 333 QTc is 393. Patient's EKG shows some T wave inversions in V3 V4 V5 and V6. - Lab Data Result diagrams: 10/12/23 11:04 Lab Results 10/12/23 Range/Units 11:04 WBC 0.8 L* (3.8-10.6) k/uL RBC 4.00 L (4.30-5.90) m/uL Hgb 11.6 L (13.0-17.5) gm/dL Hct 35.6 L (39.0-53.0) % MCV 89.2 (80.0-100.0) fL MCH 29.1 (25.0-35.0) pg MCHC 32.6 (31.0-37.0) g/dL RDW 24.4 H (11.5-15.5) % Plt Count 31 L D (150-450) k/uL MPV 7.8 Differential Comment Manual Slide Review Performed Hypochromasia Slight Poikilocytosis Slight Anisocytosis Marked Microcytosis Slight Macrocytosis Slight Tear Drop Cells Present Ovalocytes Present Disposition Clinical Impression: Sepsis, Pneumonia, Esophageal cancer Disposition: ADMITTED IP TO THIS HOSP Referrals: Orlando Barnes MD [Primary Care Provider] - 1-2 days Time of Disposition: 14:57
[2023-10-12] MEDS ORDERED: VANCOMYCIN 1,500 MG in SODIUM CHLORIDE 0.9% 500 ML 500 ML IVPB STA (15:10)
[2023-10-12] MEDS: HYDROCORTISONE SUCCINATE 100 MG/2 ML VIAL IV STA (15:46)
[2023-10-12] MEDS ORDERED: PIPERACILLIN-TAZOBACTAM 3.375 GM in SODIUM CHLORIDE 0.9% 100 ML IVPB SCH (16:00)
[2023-10-12 16:13] LABS: African American GFR (CKD) 58 (>60 ml/min/1.73 sqM); Non-African American GFR(CKD) 50 (>60 ml/min/1.73 sqM)
[2023-10-12] MEDS: VANCOMYCIN 1,500 MG in SODIUM CHLORIDE 0.9% 500 ML 500 ML IVPB STA (17:01)
[2023-10-12] MEDS ORDERED: ONDANSETRON 4 MG TAB PO PRN (20:05)
--- NOTE | 2023-10-12 20:10 | P.HPIM ---
History of Present Illness H&P Date: 10/12/23 Chief Complaint: Sepsis 77-year-old male who presents to the emergency department from [facility]. Patient comes in with a history of esophageal cancer, hypertension, hyperlipidemia, hypothyroidism, diabetes mellitus, COPD and history of atrial fibrillation. Patient had chemotherapy a while ago and radiation this past Sunday. Patient showed up to the ER because of weakness and fell they diagnosed with 2 rib fractures and a compression fracture T2 and T4. Patient also had pancytopenia and had pneumonia and they considered him septic so I started him on Vanco and Zosyn and sent him down here. Patient's pressure was a little soft while they were at [place] they gave him 3 L of fluid by the time he arrived at our ER. Patient himself states he feels fine he is not complaining of any pain and if always the same to him he would just assume go home. Blood work repeated in ED reveals a WBC of 0.8, hemoglobin of 11.6 and platelet count of 31, creatinine of 1.36 Review of Systems REVIEW OF SYSTEMS: CONSTITUTIONAL: No fever, no malaise, no fatigue. HEENT: No recent visual problems or hearing problems. Denied any sore throat. CARDIOVASCULAR: No chest pain, orthopnea, PND, no palpitations, no syncope. PULMONARY: No shortness of breath, no cough, no hemoptysis. GASTROINTESTINAL: No diarrhea, no nausea, no vomiting, no abdominal pain. NEUROLOGICAL: No headaches, no weakness, no numbness. HEMATOLOGICAL: Denies any bleeding or petechiae. GENITOURINARY: Denies any burning micturition, frequency, or urgency. MUSCULOSKELETAL/RHEUMATOLOGICAL: Denies any joint pain, swelling, or any muscle pain. ENDOCRINE: Denies any polyuria or polydipsia. The rest of the 14-point review of systems is negative. Past Medical History Past Medical History: Atrial Fibrillation, Cancer, COPD, Diabetes Mellitus, GERD/Reflux, Hyperlipidemia, Hypertension, Pneumonia, Thyroid Disorder Additional Past Medical History / Comment(s): hx foot swelling and drainage left healing, taking lasix for this, was very painful, , ultrasound done on 05/31/23 lung cancer 06/18, chemo and radiation. diarrhea since chemo last sunday History of Any Multi-Drug Resistant Organisms: None Reported Past Surgical History: Heart Catheterization, Orthopedic Surgery Additional Past Surgical History / Comment(s): back surg, neck surg, right nipple removed due to pain benign, nerve damage to left side, skin cancer removed ear and face Past Anesthesia/Blood Transfusion Reactions: No Reported Reaction Additional Past Anesthesia/Blood Transfusion Reaction / Comment(s): no blood transfusion Past Psychological History: No Psychological Hx Reported Smoking Status: Former smoker Past Alcohol Use History: None Reported Past Drug Use History: None Reported - Past Family History Mother Family Medical History: Cancer, CVA/TIA Additional Family Medical History / Comment(s): skin Father Family Medical History: Myocardial Infarction ([place]) Additional Family Medical History / Comment(s): chf Medications and Allergies Home Medications Medication Instructions Recorded Confirmed Type Metoprolol Tartrate [Lopressor] 12.5 mg PO BID 03/16/23 10/12/23 History Aspirin 81 mg PO DAILY 90 Days #90 tab 03/19/23 10/12/23 Rx Famotidine [Pepcid] 20 mg PO DAILY 06/01/23 10/12/23 History Gabapentin 300 mg PO BID 06/01/23 10/12/23 History HYDROcodone/APAP 5-325MG [[place] 1 tab PO QID PRN 07/31/23 10/12/23 History 5-325] metFORMIN HCL [Glucophage] 500 mg PO BID 07/31/23 10/12/23 History Citalopram Hydrobromide 10 mg PO DAILY 08/13/23 10/12/23 History [Citalopram HBr] Glimepiride 1 mg PO DAILY 08/13/23 10/12/23 History Ondansetron [Zofran] 4 mg PO Q8H PRN 08/13/23 10/12/23 History Zolpidem Tartrate [Ambien] 5 mg PO HS 08/30/23 10/12/23 History Apixaban [Eliquis] 5 mg PO BID tab 09/01/23 10/12/23 Rx Atorvastatin [Lipitor] 40 mg PO HS 10/12/23 10/12/23 History Furosemide [Lasix] 40 mg PO BID 10/12/23 10/12/23 History Omeprazole [PriLOSEC] 40 mg PO DAILY 10/12/23 10/12/23 History Potassium Chloride ER [K-Dur 20] 20 meq PO DAILY 10/12/23 10/12/23 History dilTIAZem HCL [Cardizem CD] 240 mg PO DAILY 10/12/23 10/12/23 History Allergies Allergy/AdvReac Type Severity Reaction Status Date / Time cephalexin [From Keflex] Allergy Mild Rash/Hives Verified 10/12/23 11:55 codeine Allergy Mild Rash/Hives Verified 10/12/23 11:55 Physical Exam Vitals: Vital Signs Temp Pulse Pulse Resp BP Pulse Ox 10/12/23 16:57 117 H 18 101/56 96 10/12/23 14:40 120 H 18 95/81 95 10/12/23 14:34 112 H 10/12/23 13:19 97.3 F L 112 H 22 88/71 94 L 10/12/23 11:47 122 H 22 96/54 94 L 10/12/23 11:26 116 H 24 82/63 92 L 10/12/23 11:11 64 18 102/55 89 L 10/12/23 10:36 97.4 F L 89 18 98/63 88 L Intake and Output 10/12/23 10/12/23 10/12/23 06:59 14:59 22:59 Other: Weight 77.111 kg - Constitutional General appearance: Present: average body habitus, cooperative, no acute distress - EENT Eyes: Present: anicteric sclerae, EOMI, PERRLA, normal appearance ENT: Present: hearing grossly normal, normal oropharynx Ears: bilateral: normal - Neck Neck: Present: normal ROM. Absent: lymphadenopathy, rigidity, thyromegaly Carotids: negative: bruit present Thyroid: bilateral: normal size, negative: enlarged, nodule - Respiratory Respiratory: bilateral: CTA, negative: rales, rhonchi, wheezing - Cardiovascular Rhythm: regular Heart sounds: normal: S1, S2 Abnormal Heart Sounds: Absent: systolic murmur, diastolic murmur - Gastrointestinal General gastrointestinal: Present: normal bowel sounds, soft. Absent: distended, organomegaly, tenderness - Genitourinary Genitourinary Comment(s): deferred - Integumentary Integumentary: Present: normal turgor. Absent: jaundiced, rash, ulcer - Neurologic Neurologic: Present: CNII-XII intact. Absent: focal deficits - Musculoskeletal Musculoskeletal: Present: gait normal, strength equal bilaterally - Psychiatric Psychiatric: Present: A&O x's 3, appropriate affect, intact judgment & insight Results CBC & Chem 7: 10/12/23 11:04 10/12/23 15:41 Labs: Abnormal Lab Results - Last 24 Hours (Table) 10/12/23 10/12/23 Range/Units 11:04 15:41 WBC 0.8 L* (3.8-10.6) k/uL RBC 4.00 L (4.30-5.90) m/uL Hgb 11.6 L (13.0-17.5) gm/dL Hct 35.6 L (39.0-53.0) % RDW 24.4 H (11.5-15.5) % Plt Count 31 L D (150-450) k/uL Creatinine 1.36 H (0.66-1.25) mg/dL Assessment and Plan Assessment: 1. Sepsis; related to pneumonia; patient received fluid resuscitation in outside ER 2. Community-acquired pneumonia/immunocompromised host -- Patient has been placed on IV vancomycin and Zosyn; currently on IV cefepime and vancomycin; received Solu-Cortef 100 mg IV x 1 -- Will monitor CBC, CRP and procalcitonin; blood cultures and sputum cultures obtained 3. Acute renal injury; patient received IV fluid resuscitation in form of normal saline; monitor strict GIAL's, daily weights, renal function electrolytes; avoid nephrotoxins and hypotension 4. Pancytopenia; related to chemotherapy 5. Rib fracture/compression fractures T2 and T4 6. Hypertension; Cardizem CD2 40 mg daily; metoprolol 12.5 mg twice daily; Cardizem has been placed on hold for softer blood pressures; we will continue with metoprolol with parameters for atrial fibrillation 7. Hyperlipidemia; Lipitor 40 mg nightly 8. Diabetes mellitus type 2; patient takes metformin 500 mg twice daily and glimepiride 1 mg daily; will hold oral hypoglycemic agents; monitor Accu-Cheks before every meal and at bedtime with insulin sliding scale 9. Atrial fibrillation; patient is rate controlled on metoprolol and Cardizem; anticoagulated with Eliquis 5 mg twice daily 10. Esophageal cancer; outpatient oncology follow-up DVT prophylaxis; SCDs/Eliquis CODE STATUS; full code
[2023-10-12] MEDS: HYDROcodone/APAP 5-325MG 1 EACH TAB PO PRN (20:14)
[2023-10-12] MEDS: GABAPENTIN 300 MG CAP PO SCH (21:08)
[2023-10-12] MEDS: METOPROLOL TARTRATE 25 MG TAB PO SCH (21:08)
[2023-10-12] MEDS: APIXABAN 5 MG TAB PO SCH (21:08)
[2023-10-12] MEDS: ZOLPIDEM 5 MG TAB PO SCH (21:08)
[2023-10-12] MEDS: ATORVASTATIN 40 MG TAB PO SCH (21:08)
[2023-10-12] MEDS: CEFEPIME 2 GM in SODIUM CHLORIDE 0.9% 100 ML IVPB SCH (21:33)
[2023-10-12] MEDS: FUROSEMIDE 10 MG/ML 2 ML VIAL IV ONE (22:40)
[2023-10-13 00:57] LABS: Glucose,Whole Blood 158 mg/dL (70-110)
[2023-10-13] MEDS ORDERED: Magnesium Replacement Protocol 1 EACH MISC MISCELLANE PRN ×2 (02:20→07:20)
[2023-10-13] MEDS ORDERED: Potassium Replacement Protocol 1 EACH MISC MISCELLANE PRN (02:20)
[2023-10-13 03:06] LABS: Glucose,Whole Blood 132 mg/dL (70-110)
[2023-10-13 04:37] LABS: Anisocytosis Marked; HCT 23.1 % (39.0-53.0); Hypochromasia Marked; MCH 28.6 pg (25.0-35.0); MCHC 31.1 g/dL (31.0-37.0); Macrocytosis Slight; Mean Platelet Volume 10.8; Microcytosis Slight; Poikilocytosis Slight; RBC 2.51 m/uL (4.30-5.90); RDW 24.5 % (11.5-15.5)
[2023-10-13 04:38] LABS: Platelet Count 38 k/uL (150-450)
[2023-10-13 04:39] LABS: HGB 7.2 gm/dL (13.0-17.5)
[2023-10-13 04:42] LABS: ALT 11 U/L (4-49); AST 20 U/L (17-59); African American GFR (CKD) 48 (>60 ml/min/1.73 sqM); Albumin 2.3 g/dL (3.5-5.0); Alkaline Phosphatase 69 U/L (38-126); Anion Gap 10 mmol/L; Blood Urea Nitrogen 50 mg/dL (9-20); Calcium 7.2 mg/dL (8.4-10.2); Carbon Dioxide 18 mmol/L (22-30); Chloride 112 mmol/L (98-107); Glucose 112 mg/dL (74-99); Magnesium 1.2 mg/dL (1.6-2.3); Non-African American GFR(CKD) 42 (>60 ml/min/1.73 sqM); Phosphorus 5.2 mg/dL (2.5-4.5); Potassium 3.4 mmol/L (3.5-5.1); Sodium 140 mmol/L (137-145); Total Bilirubin 0.8 mg/dL (0.2-1.3); Total Protein 4.6 g/dL (6.3-8.2)
[2023-10-13] MEDS: NOREPINEPHRINE 4 MG in SODIUM CHLORIDE 0.9% 250 ML IV SCH (05:03)
[2023-10-13 06:27] LABS: Band Neutrophils % 33 %; Lymphocytes # (M) 0.08 k/uL (1.0-4.8); Metamyelocytes # (M) 0.02 k/uL (0); Metamyelocytes % 1 %; Monocytes # (M) 0.14 k/uL (0-1.0); Neutrophils % (M) 52 %; Nucleated Red Blood Cells 2 /100 WBC (0-0); Total Cells Counted 100; WBC 1.6 k/uL (3.8-10.6)
[2023-10-13 06:28] LABS: Anisocytosis (M) Present; Poikilocytosis (M) Present; Polychromasia Present
[2023-10-13 06:29] LABS: Ovalocytes Present; Tear Drop Cells Present
--- NOTE | 2023-10-13 06:47 | XR ---
EXAMINATION TYPE: XR chest 1V portable DATE OF EXAM: 10/13/2023 CLINICAL HISTORY: Difficulty breathing and pneumonia progress study. TECHNIQUE: Single AP portable semiupright view of the chest is obtained. COMPARISON: Chest x-ray from one day earlier and older studies. FINDINGS: Surgical change to the cervical spine is redemonstrated. Cardiac silhouette size stable wi thin normal limits. Stable left-sided PICC line. Old right rib fractures redemonstrated. Right greate r than left bilateral opacities redemonstrated. IMPRESSION: Persistent bilateral increased opacities could reflect chronic fibrotic change. Areas of acute infiltrate and/or edema difficult to exclude. No significant change from one day earlier.
[2023-10-13] MEDS: PANTOPRAZOLE 40 MG TABLET PO SCH (06:52)
[2023-10-13 07:16] LABS: Glucose,Whole Blood 125 mg/dL (70-110)
[2023-10-13] MEDS: VANCOMYCIN 1,500 MG in SODIUM CHLORIDE 0.9% 500 ML 500 ML IVPB SCH (08:17)
[2023-10-13] MEDS: MAGNESIUM SULFATE-D5W PMX 1 GM in DEXTROSE/WATER 1 100ML.BAG IVPB SCH (08:36)
[2023-10-13] MEDS: POTASSIUM CHLORIDE 20 MEQ in WATER FOR INJECTION 1 100ML.BAG IVPB SCH (09:03)
[2023-10-13] MEDS: ASPIRIN 81 MG PO SCH (09:22)
[2023-10-13] MEDS: CITALOPRAM HYDROBROMIDE 10 MG TAB PO SCH (09:41)
[2023-10-13] MEDS: ALTEPLASE 2 MG VIAL (CATHFLO) IV STA (10:23)
[2023-10-13 10:32] VITALS: BMI 20.7
[2023-10-13 11:06] LABS: Glucose,Whole Blood 145 mg/dL (70-110)
[2023-10-13] MEDS: FAMOTIDINE 20 MG TAB PO SCH (11:14)
[2023-10-13] MEDS: POTASSIUM CHLORIDE ER 20 MEQ TAB.ER PO SCH (13:30)
--- NOTE | 2023-10-13 13:30 | P.CNPUL ---
History of Present Illness Consult date: 10/13/23 Requesting physician: Louie Napier Reason for consult: COPD, pneumonia Chief complaint: Weakness, and recurrent falls History of present illness: This is a 77-year-old white male, very familiar to my service, on 06/07/2023, patient was diagnosed with poorly differentiated non-small cell lung cancer, and he was referred to oncology and radiation oncology, patient has been undergoing chemotherapy and radiation therapy. 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 Patient had chemotherapy a while ago, and radiation therapy last Sunday. Patient was seen in the ER in [place] mostly with recurrent falls, and he was found to have 2 rib fractures, compression fracture of T2 and T4, he was also noted to have pancytopenia and chest x-ray suggestive of pneumonia. Transferred to [facility], placed on vancomycin and Zosyn, patient was also given 3 L of IV fluids prior to transfer. Last night I was notified about this patient having low blood pressure, and may require placement on norepinephrine, hence I transferred the patient to the ICU. He was very briefly on norepinephrine, and this was discontinued, did not require any more patient is hemodynamically stable, and he does not seem to be in any distress.However his labs are worrisome, patient does have low WBC count of 1.6, hemoglobin of 7.2, basic metabolic profile is relatively normal however his BUN is 50 creatinine 1.59 considering his immunologic status, patient is now on vancomycin and cefepime, empirically, we suspect that the patient has pneumonia, sepsis, doubt septic shock Review of Systems CONSTITUTIONAL: Generalized weakness and fatigue. Some weight loss. HEENT: No recent visual problems or hearing problems. Denied any sore throat. CARDIOVASCULAR: No chest pain, orthopnea, PND, no palpitations, no syncope. PULMONARY: Intermittent cough wheezing and intermittent episodes of shortness of breath. GASTROINTESTINAL: Occasional diarrhea, no nausea no vomiting. NEUROLOGICAL: No headaches, no weakness, no numbness. HEMATOLOGICAL: Denies any bleeding or petechiae. GENITOURINARY: Negative. MUSCULOSKELETAL/RHEUMATOLOGICAL: Negative. ENDOCRINE: Negative. Past Medical History Past Medical History: Atrial Fibrillation, Cancer, COPD, Diabetes Mellitus, GERD/Reflux, Hyperlipidemia, Hypertension, Pneumonia, Thyroid Disorder Additional Past Medical History / Comment(s): hx foot swelling and drainage left healing, taking lasix for this, was very painful, , ultrasound done on 05/31/23 lung cancer 06/18, chemo and radiation. diarrhea since chemo last sunday History of Any Multi-Drug Resistant Organisms: None Reported Past Surgical History: Heart Catheterization, Orthopedic Surgery Additional Past Surgical History / Comment(s): back surg, neck surg, right nipple removed due to pain benign, nerve damage to left side, skin cancer removed ear and face Past Anesthesia/Blood Transfusion Reactions: No Reported Reaction Additional Past Anesthesia/Blood Transfusion Reaction / Comment(s): no blood transfusion Past Psychological History: No Psychological Hx Reported Additional Psychological History / Comment(s): taking celexa since lung dx Smoking Status: Former smoker Past Alcohol Use History: None Reported Additional Past Alcohol Use History / Comment(s): 2 cigars/day at least per . stopped smoking cigarettes 3-4 yrs ago Past Drug Use History: None Reported - Past Family History Mother Family Medical History: Cancer, CVA/TIA Additional Family Medical History / Comment(s): skin Father Family Medical History: Myocardial Infarction ([place]) Additional Family Medical History / Comment(s): chf Medications and Allergies Home Medications Medication Instructions Recorded Confirmed Type Metoprolol Tartrate [Lopressor] 12.5 mg PO BID 03/16/23 10/12/23 History Aspirin 81 mg PO DAILY 90 Days #90 tab 03/19/23 10/12/23 Rx Famotidine [Pepcid] 20 mg PO DAILY 06/01/23 10/12/23 History Gabapentin 300 mg PO BID 06/01/23 10/12/23 History HYDROcodone/APAP 5-325MG [[place] 1 tab PO QID PRN 07/31/23 10/12/23 History 5-325] metFORMIN HCL [Glucophage] 500 mg PO BID 07/31/23 10/12/23 History Citalopram Hydrobromide 10 mg PO DAILY 08/13/23 10/12/23 History [Citalopram HBr] Glimepiride 1 mg PO DAILY 08/13/23 10/12/23 History Ondansetron [Zofran] 4 mg PO Q8H PRN 08/13/23 10/12/23 History Zolpidem Tartrate [Ambien] 5 mg PO HS 08/30/23 10/12/23 History Apixaban [Eliquis] 5 mg PO BID tab 09/01/23 10/12/23 Rx Atorvastatin [Lipitor] 40 mg PO HS 10/12/23 10/12/23 History Furosemide [Lasix] 40 mg PO BID 10/12/23 10/12/23 History Omeprazole [PriLOSEC] 40 mg PO DAILY 10/12/23 10/12/23 History Potassium Chloride ER [K-Dur 20] 20 meq PO DAILY 10/12/23 10/12/23 History dilTIAZem HCL [Cardizem CD] 240 mg PO DAILY 10/12/23 10/12/23 History Allergies Allergy/AdvReac Type Severity Reaction Status Date / Time cephalexin [From Keflex] Allergy Mild Rash/Hives Verified 10/12/23 11:55 codeine Allergy Mild Rash/Hives Verified 10/12/23 11:55 Physical Exam Vitals: Vital Signs Temp Pulse Pulse Resp BP BP Pulse Ox 10/13/23 12:00 96.1 F L 94 19 95/68 95 10/13/23 09:30 97 16 95/65 88 L 10/13/23 09:00 102 H 18 97/59 95 10/13/23 08:30 84 20 101/80 96 10/13/23 08:00 96.7 F L 81 13 98/70 99 10/13/23 07:30 90 26 H 99/69 96 10/13/23 07:10 87 19 90/67 100 10/13/23 07:00 85 17 93/62 93 L 10/13/23 06:50 107 H 17 93/62 93 L 10/13/23 06:40 100 20 119/87 92 L 10/13/23 06:30 96 16 97/62 100 10/13/23 06:20 89 15 97/62 100 10/13/23 06:10 87 16 105/67 10/13/23 06:00 92 16 110/83 10/13/23 05:50 90 19 110/83 98 10/13/23 05:40 92 19 100/68 99 10/13/23 05:30 90 18 96/64 98 10/13/23 05:20 94 17 96/64 97 10/13/23 05:10 107 H 18 94/74 85 L 10/13/23 05:00 92 17 69/57 98 02/17/24 04:50 90 15 99 10/13/23 04:40 89 20 69/45 94 L 10/13/23 04:30 91 17 73/44 100 10/13/23 04:20 89 16 67/45 100 10/13/23 04:10 93 15 70/52 100 10/13/23 04:00 97.5 F L 92 12 75/54 100 10/13/23 03:50 95 16 75/54 100 10/13/23 03:40 89 15 84/56 100 10/13/23 03:30 96 18 76/47 100 10/13/23 03:20 99 14 76/47 100 10/13/23 03:10 124 H 11 L 85/59 99 10/13/23 03:00 110 H 17 90/70 10/13/23 02:50 95 25 H 90/70 10/13/23 02:40 109 H 18 87/54 10/13/23 02:30 93 20 82/53 92 L 10/13/23 02:20 107 H 22 91/75 90 L 10/13/23 02:10 108 H 20 94/63 92 L 10/13/23 01:31 104 H 76/49 10/13/23 01:15 89 79/49 10/13/23 01:07 111 H 80/45 10/13/23 00:00 111 H 18 89/61 92 L 10/12/23 22:39 90/54 10/12/23 20:34 97.8 F 109 H 18 90/54 93 L 10/12/23 19:45 117 H 19 102/78 99 10/12/23 18:46 121 H 18 100/71 95 10/12/23 16:57 117 H 18 101/56 96 10/12/23 14:40 120 H 18 95/81 95 10/12/23 14:34 112 H 10/12/23 13:19 97.3 F L 112 H 22 88/71 94 L Intake and Output 10/12/23 10/13/23 10/13/23 22:59 06:59 14:59 Intake Total 722.641 0053.938 Output Total 800 200 Balance -136.674 4934.938 Intake: IV 100 0.9 NS 100 Intake, IV Titration 12.046 1202.938 Amount Cefepime 2 gm In Sodium 100 Chloride 0.9% 100 ml @ 25 mls/hr IVPB Q8HR [facility] Rx# :[id number] Magnesium Sulfate-D5w Pmx 400 1 gm In Dextrose/Water 1 100ml.bag @ 100 mls/hr IVPB Q1H [facility] Rx#: [id number] Norepinephrine 4 mg In 12.046 2.938 Sodium Chloride 0.9% 250 ml @ 0.03 MCG/KG/MIN 8. 814 mls/hr IV .Q24H [facility] Rx#:[id number] Potassium Chloride 20 meq 200 In Water For Injection 1 100ml.bag @ 50 mls/hr IVPB Q2H [facility] Rx#: [id number] Vancomycin 1,500 mg In 500 Sodium Chloride 0.9% 500 ml 500 ml @ 167 mls/hr IVPB Q24H [facility] Rx#: [id number] Oral 100 350 Output: Urine 400 200 Post Void Residual 400 Other: Weight 77.111 kg 77.111 kg GENERAL EXAM: Reveals 77-year-old white male in no distress on 4 L nasal cannula with O2 sats of 95% HEAD: Normocephalic. Bruising noted on the forehead from recent fall. Seems to be relatively superficial EYES: Normal reaction of pupils, equal size. NOSE: Clear with pink turbinates. THROAT: No erythema or exudates. NECK: No masses, no JVD. CHEST: No chest wall deformity. LUNGS: Crackles at the bases no rhonchi no wheezes. CVS: S1 and S2 normal with no audible murmur, regular rhythm. ABDOMEN: No hepatosplenomegaly, normal bowel sounds, no guarding or rigidity. SKIN: No rashes, patient does have superficial bruising noted on the forehead from recent fall. CENTRAL NERVOUS SYSTEM: No focal deficits, tone is normal in all 4 extremities. EXTREMITIES: Clubbing edema or cyanosis. Psychiatric: Normal mood and affect and no mental status examination. Results - Laboratory Findings CBC and BMP: 10/13/23 04:12 10/13/23 04:12 Abnormal lab findings: Abnormal Labs 10/12/23 10/12/23 10/13/23 11:04 15:41 00:56 WBC 0.8 L* RBC 4.00 L Hgb 11.6 L Hct 35.6 L RDW 24.4 H Plt Count 31 L D Lymphocytes # (Manual) Metamyelocytes # (Man) Nucleated RBCs Potassium Chloride Carbon Dioxide BUN Creatinine 1.36 H Glucose POC Glucose (mg/dL) 158 H Calcium Phosphorus Magnesium C-Reactive Protein Total Protein Albumin Procalcitonin 10/13/23 10/13/23 10/13/23 03:05 04:04 04:12 WBC 1.6 L RBC 2.51 L Hgb 7.2 L D Hct 23.1 L RDW 24.5 H Plt Count 38 L Lymphocytes # (Manual) 0.08 L Metamyelocytes # (Man) 0.02 H Nucleated RBCs 2 H Potassium Chloride Carbon Dioxide BUN Creatinine Glucose POC Glucose (mg/dL) 132 H Calcium Phosphorus Magnesium C-Reactive Protein Total Protein Albumin Procalcitonin 2.03 H 10/13/23 10/13/23 10/13/23 04:12 07:14 11:05 WBC RBC Hgb Hct RDW Plt Count Lymphocytes # (Manual) Metamyelocytes # (Man) Nucleated RBCs Potassium 3.4 L Chloride 112 H Carbon Dioxide 18 L BUN 50 H Creatinine 1.59 H Glucose 112 H POC Glucose (mg/dL) 125 H 145 H Calcium 7.2 L Phosphorus 5.2 H Magnesium 1.2 L C-Reactive Protein 41.0 H Total Protein 4.6 L Albumin 2.3 L Procalcitonin - Diagnostic Findings Chest x-ray: image reviewed (Bilateral opacities noted consistent with acute infiltrate, doubt edema.) Assessment and Plan Assessment: Impression: Acute pneumonia, community-acquired, however the patient is immunocompromise, and gram-negative pneumonia is strongly suspected. Sepsis secondary to pneumonia patient received fluid resuscitation in [facility] before transferring to [facility]. Orthostatic hypotension prior to his initial presentation with recurrent falls secondary to orthostasis. Acute kidney injury secondary to sepsis and low blood pressure. Compression fractures T4 and T2 related to fall. Rib fractures related to fall. Pancytopenia related to chemotherapy. History of benign essential hypertension Paroxysmal atrial fibrillation Type 2 diabetes without complications History of non-small cell lung cancer, patient finished chemotherapy and had recent radiation therapy. Recommendation: Continue antibiotics including cefepime and vancomycin for now. Patient could be transferred out of the ICU to regular medical floor. Continue to monitor blood pressure closely while on the medical floor. Resume home meds including Eliquis. Check blood cultures and possibly sputum cultures if possible GI and DVT prophylaxis. Discussed CODE STATUS with the patient, and he wishes to be DNR CODE STATUS. Will continue to follow Time with Patient: Greater than 30
[2023-10-13 16:30] LABS: Glucose,Whole Blood 148 mg/dL (70-110)
--- NOTE | 2023-10-13 19:06 | P.PN ---
Subjective Progress Note Date: 10/13/23 77-year-old male who presents to the emergency department from [facility]. Patient comes in with a history of esophageal cancer, hypertension, hyperlipidemia, hypothyroidism, diabetes mellitus, COPD and history of atrial fibrillation. Patient had chemotherapy a while ago and radiation this past Sunday. Patient showed up to the ER because of weakness and fell they diagnosed with 2 rib fractures and a compression fracture T2 and T4. Patient also had pancytopenia and had pneumonia and they considered him septic so I started him on Vanco and Zosyn and sent him down here. Patient's pressure was a little soft while they were at [place] they gave him 3 L of fluid by the time he arriv ed at our ER. Patient himself states he feels fine he is not complaining of any pain and if always the same to him he would just assume go home. Blood work repeated in ED reveals a WBC of 0.8, hemoglobin of 11.6 and platelet count of 31, creatinine of 1.36 --- Patient transferred to ICU tonight for soft blood pressure; patient was on norepinephrine briefly which was discontinued; patient remained hemodynamically stable and is transferred out of ICU Objective - Vital Signs Vital signs: Vital Signs Temp 96.7 F L 10/13/23 08:00 Pulse 97 10/13/23 09:30 Resp 16 10/13/23 09:30 BP 95/65 10/13/23 09:30 Pulse Ox 88 L 10/13/23 09:30 FiO2 Intake & Output 10/12/23 10/13/23 10/13/23 18:59 06:59 18:59 Intake Total 198.173 4293.938 Output Total 800 0 Balance -401.059 8345.938 Weight 77.111 kg 77.111 kg 77.111 kg Intake: IV 40 0.9 NS 40 Intake, IV Titration 12.046 902.938 Amount Cefepime 2 gm In Sodium 100 Chloride 0.9% 100 ml @ 25 mls/hr IVPB Q8HR [facility] Rx# :[id number] Magnesium Sulfate-D5w Pmx 200 1 gm In Dextrose/Water 1 100ml.bag @ 100 mls/hr IVPB Q1H [facility] Rx#: [id number] Norepinephrine 4 mg In 12. 2.938 Sodium Chloride 0.9% 250 ml @ 0.03 MCG/KG/MIN 8. 814 mls/hr IV .Q24H [facility] Rx#:[id number] Potassium Chloride 20 meq 100 In Water For Injection 1 100ml.bag @ 50 mls/hr IVPB Q2H [facility] Rx#: [id number] Vancomycin 1,500 mg In 500 Sodium Chloride 0.9% 500 ml 500 ml @ 167 mls/hr IVPB Q24H [facility] Rx#: [id number] Oral 100 Tube Feeding 100 Output: Urine 400 0 Post Void Residual 400 - Exam - Constitutional General appearance: Present: average body habitus, cooperative, no acute distress - EENT Eyes: Present: anicteric sclerae, EOMI, PERRLA, normal appearance ENT: Present: hearing grossly normal, normal oropharynx Ears: bilateral: normal - Neck Neck: Present: normal ROM. Absent: lymphadenopathy, rigidity, thyromegaly Carotids: negative: bruit present Thyroid: bilateral: normal size, negative: enlarged, nodule - Respiratory Respiratory: bilateral: CTA, negative: rales, rhonchi, wheezing - Cardiovascular Rhythm: regular Heart sounds: normal: S1, S2 Abnormal Heart Sounds: Absent: systolic murmur, diastolic murmur - Gastrointestinal General gastrointestinal: Present: normal bowel sounds, soft. Absent: distended, organomegaly, tenderness - Genitourinary Genitourinary Comment(s): deferred - Integumentary Integumentary: Present: normal turgor. Absent: jaundiced, rash, ulcer - Neurologic Neurologic: Present: CNII-XII intact. Absent: focal deficits - Musculoskeletal Musculoskeletal: Present: gait normal, strength equal bilaterally - Psychiatric Psychiatric: Present: A&O x's 3, appropriate affect, intact judgment & insight - Labs CBC & Chem 7: 10/13/23 04:12 10/13/23 04:12 Labs: Abnormal Lab Results - Last 24 Hours (Table) 10/12/23 10/12/23 10/13/23 Range/Units 11:04 15:41 00:56 WBC (3.8-10.6) k/uL RBC (4.30-5.90) m/uL Hgb (13.0-17.5) gm/dL Hct (39.0-53.0) % RDW (11.5-15.5) % Plt Count 31 L D (150-450) k/uL Lymphocytes # (Manual) (1.0-4.8) k/uL Metamyelocytes # (Man) (0) k/uL Nucleated RBCs (0-0) /100 WBC Potassium (3.5-5.1) mmol/L Chloride (98-107) mmol/L Carbon Dioxide (22-30) mmol/L BUN (9-20) mg/dL Creatinine 1.36 H (0.66-1.25) mg/dL Glucose (74-99) mg/dL POC Glucose (mg/dL) 158 H (70-110) mg/dL Calcium (8.4-10.2) mg/dL Phosphorus (2.5-4.5) mg/dL Magnesium (1.6-2.3) mg/dL C-Reactive Protein (<1.0) mg/dL Total Protein (6.3-8.2) g/dL Albumin (3.5-5.0) g/dL 10/13/23 10/13/23 10/13/23 Range/Units 03:05 04:12 04:12 WBC 1.6 L (3.8-10.6) k/uL RBC 2.51 L (4.30-5.90) m/uL Hgb 7.2 L D (13.0-17.5) gm/dL Hct 23.1 L (39.0-53.0) % RDW 24.5 H (11.5-15.5) % Plt Count 38 L (150-450) k/uL Lymphocytes # (Manual) 0.08 L (1.0-4.8) k/uL Metamyelocytes # (Man) 0.02 H (0) k/uL Nucleated RBCs 2 H (0-0) /100 WBC Potassium 3.4 L (3.5-5.1) mmol/L Chloride 112 H (98-107) mmol/L Carbon Dioxide 18 L (22-30) mmol/L BUN 50 H (9-20) mg/dL Creatinine 1.59 H (0.66-1.25) mg/dL Glucose 112 H (74-99) mg/dL POC Glucose (mg/dL) 132 H (70-110) mg/dL Calcium 7.2 L (8.4-10.2) mg/dL Phosphorus 5.2 H (2.5-4.5) mg/dL Magnesium 1.2 L (1.6-2.3) mg/dL C-Reactive Protein 41.0 H (<1.0) mg/dL Total Protein 4.6 L (6.3-8.2) g/dL Albumin 2.3 L (3.5-5.0) g/dL 10/13/23 10/13/23 Range/Units 07:14 11:05 WBC (3.8-10.6) k/uL RBC (4.30-5.90) m/uL Hgb (13.0-17.5) gm/dL Hct (39.0-53.0) % RDW (11.5-15.5) % Plt Count (150-450) k/uL Lymphocytes # (Manual) (1.0-4.8) k/uL Metamyelocytes # (Man) (0) k/uL Nucleated RBCs (0-0) /100 WBC Potassium (3.5-5.1) mmol/L Chloride (98-107) mmol/L Carbon Dioxide (22-30) mmol/L BUN (9-20) mg/dL Creatinine (0.66-1.25) mg/dL Glucose (74-99) mg/dL POC Glucose (mg/dL) 125 H 145 H (70-110) mg/dL Calcium (8.4-10.2) mg/dL Phosphorus (2.5-4.5) mg/dL Magnesium (1.6-2.3) mg/dL C-Reactive Protein (<1.0) mg/dL Total Protein (6.3-8.2) g/dL Albumin (3.5-5.0) g/dL Assessment and Plan Assessment: 1. Sepsis; related to pneumonia; patient received fluid resuscitation in outside ER 2. Community-acquired pneumonia/immunocompromised host -- Patient has been placed on IV vancomycin and Zosyn; currently on IV cefepime and vancomycin; received Solu-Cortef 100 mg IV x 1 -- Will monitor CBC, CRP and procalcitonin; blood cultures and sputum cultures obtained 3. Acute renal injury; patient received IV fluid resuscitation in form of normal saline; monitor strict GAIL's, daily weights, renal function electrolytes; avoid nephrotoxins and hypotension 4. Pancytopenia; related to chemotherapy 5. Rib fracture/compression fractures T2 and T4 6. Hypertension; Cardizem CD2 40 mg daily; metoprolol 12.5 mg twice daily; Cardizem has been placed on hold for softer blood pressures; we will continue with metoprolol with parameters for atrial fibrillation 7. Hyperlipidemia; Lipitor 40 mg nightly 8. Diabetes mellitus type 2; patient takes metformin 500 mg twice daily and glimepiride 1 mg daily; will hold oral hypoglycemic agents; monitor Accu-Cheks before every meal and at bedtime with insulin sliding scale 9. Atrial fibrillation; patient is rate controlled on metoprolol and Cardizem; anticoagulated with Eliquis 5 mg twice daily 10. Esophageal cancer; outpatient oncology follow-up DVT prophylaxis; SCDs/Eliquis CODE STATUS; full code
[2023-10-13 19:54] LABS: Glucose,Whole Blood 143 mg/dL (70-110)
[2023-10-13] MEDS: CEFEPIME 2 GM in SODIUM CHLORIDE 0.9% 100 ML IVPB SCH (21:32)
--- NOTE | 2023-10-13 22:05 | P.CONS ---
History of Present Illness - Reason for Consult Consult date: 10/13/23 Community-acquired pneumonia in immunocompromised Requesting physician: Louie Napier - Chief Complaint Weakness and multiple falls x days - History of Present Illness Patient is a 77-year-old male with a past medical history significant for diabetes mellitus COPD atrial fibrillation hypertension hyperlipidemia poorly differentiated non-small cell lung cancer patient has been undergoing chemo and radiation therapy patient apparently has been getting weaker recently and did have multiple falls and was evaluated the [facility] after a fall with the patient was noted to have 2 rib fracture compression fracture of the T2 and T4 at the patient noted to be pancytopenic chest x-ray was suggestive of possible pneumonia patient was transferred to [facility] for further management of his underlying condition patient has been admitted to ICU as patient was noted to be slightly hypotensive however currently not requiring any pressor support the patient is lethargic and cannot provide any history so most information has been obtained from review the chart and talking to son at the bedside who reported mostly weakness and falls did not give any history of any fever at home significant cough or sputum production no vomiting no choking on the food and no diarrhea patient was afebrile on presentation to the hospital and remains to be afebrile patient was tachycardic at times and mildly hypertensive he was hypoxic requiring supplemental oxygen currently on 4 L nasal cannula oxygen patient did have a white count of 0.8 creatinine is 1.59 liver isms are normal CRP procalcitonin mildly elevated blood culture obtained currently pending patient did have a chest x-ray extensive patchy parenchymal changes throughout the lungs bilaterally concerning for multifocal pneumonia patient was initially started on vancomycin and Zosyn subsequently Zosyn was adjusted to cefepime infectious disease was consulted for further management of antibiotic therapy Review of Systems Positive points has been mentioned in HPI complete review could not be obtained because of his underlying mental status Past Medical History Past Medical History: Atrial Fibrillation, Cancer, COPD, Diabetes Mellitus, GERD/Reflux, Hyperlipidemia, Hypertension, Pneumonia, Thyroid Disorder Additional Past Medical History / Comment(s): hx foot swelling and drainage left healing, taking lasix for this, was very painful, , ultrasound done on 05/31/23 lung cancer 06/18, chemo and radiation. diarrhea since chemo last sunday History of Any Multi-Drug Resistant Organisms: None Reported Past Surgical History: Heart Catheterization, Orthopedic Surgery Additional Past Surgical History / Comment(s): back surg, neck surg, right nipple removed due to pain benign, nerve damage to left side, skin cancer removed ear and face Past Anesthesia/Blood Transfusion Reactions: No Reported Reaction Additional Past Anesthesia/Blood Transfusion Reaction / Comm: no blood transfusion Past Psychological History: No Psychological Hx Reported Additional Psychological History / Comment(s): taking celexa since lung dx Smoking Status: Former smoker Past Alcohol Use History: None Reported Additional Past Alcohol Use History / Comment(s): 2 cigars/day at least per . stopped smoking cigarettes 3-4 yrs ago Past Drug Use History: None Reported - Past Family History Mother Family Medical History: Cancer, CVA/TIA Additional Family Medical History / Comment(s): skin Father Family Medical History: Myocardial Infarction ([place]) Additional Family Medical History / Comment(s): chf Medications and Allergies Home Medications Medication Instructions Recorded Confirmed Type Metoprolol Tartrate [Lopressor] 12.5 mg PO BID 03/16/23 10/16/23 History Aspirin 81 mg PO DAILY 90 Days #90 tab 03/19/23 10/16/23 Rx Famotidine [Pepcid] 20 mg PO DAILY 06/01/23 10/16/23 History Gabapentin 300 mg PO BID 06/01/23 10/16/23 History HYDROcodone/APAP 5-325MG [[place] 1 tab PO QID PRN 07/31/23 10/16/23 History 5-325] metFORMIN HCL [Glucophage] 500 mg PO BID 07/31/23 10/16/23 History Citalopram Hydrobromide 10 mg PO DAILY 08/13/23 10/16/23 History [Citalopram HBr] Glimepiride 1 mg PO DAILY 08/13/23 10/16/23 History Ondansetron [Zofran] 4 mg PO Q8H PRN 08/13/23 10/16/23 History Zolpidem Tartrate [Ambien] 5 mg PO HS 08/30/23 10/16/23 History Apixaban [Eliquis] 5 mg PO BID tab 09/01/23 10/16/23 Rx Atorvastatin [Lipitor] 40 mg PO HS 10/12/23 10/16/23 History Furosemide [Lasix] 40 mg PO BID 10/12/23 10/16/23 History Omeprazole [PriLOSEC] 40 mg PO DAILY 10/12/23 10/16/23 History Potassium Chloride ER [K-Dur 20] 20 meq PO DAILY 10/12/23 10/16/23 History dilTIAZem HCL [Cardizem CD] 240 mg PO DAILY 10/12/23 10/16/23 History Allergies Allergy/AdvReac Type Severity Reaction Status Date / Time cephalexin [From Keflex] Allergy Mild Rash/Hives Verified 10/12/23 11:55 codeine Allergy Mild Rash/Hives Verified 10/12/23 11:55 Physical Exam Vitals: Vital Signs Temp Pulse Pulse Resp BP BP Pulse Ox 10/13/23 09:30 97 16 95/65 88 L 10/13/23 09:00 102 H 18 97/59 95 10/13/23 08:30 84 20 101/80 96 10/13/23 08:00 96.7 F L 81 13 98/70 99 10/13/23 07:30 90 26 H 99/69 96 10/13/23 07:10 87 19 90/67 100 10/13/23 07:00 85 17 93/62 93 L 10/13/23 06:50 107 H 17 93/62 93 L 10/13/23 06:40 100 20 119/87 92 L 10/13/23 06:30 96 16 97/62 100 10/13/23 06:20 89 15 97/62 100 10/13/23 06:10 87 16 105/67 10/13/23 06:00 92 16 110/83 10/13/23 05:50 90 19 110/83 98 10/13/23 05:40 92 19 100/68 99 10/13/23 05:30 90 18 96/64 98 10/13/23 05:20 94 17 96/64 97 10/13/23 05:10 107 H 18 94/74 85 L 10/13/23 05:00 92 17 69/57 98 10/13/23 04:50 90 15 99 10/13/23 04:40 89 20 69/45 94 L 10/13/23 04:30 91 17 73/44 100 10/13/23 04:20 89 16 67/45 100 10/13/23 04:10 93 15 70/52 100 10/13/23 04:00 97.5 F L 92 12 75/54 100 10/13/23 03:50 95 16 75/54 100 10/13/23 03:40 89 15 84/56 100 10/13/23 03:30 96 18 76/47 100 10/13/23 03:20 99 14 76/47 100 10/13/23 03:10 124 H 11 L 85/59 99 10/13/23 03:00 110 H 17 90/70 10/13/23 02:50 95 25 H 90/70 10/13/23 02:40 109 H 18 87/54 10/13/23 02:30 93 20 82/53 92 L 10/13/23 02:20 107 H 22 91/75 90 L 10/13/23 02:10 108 H 20 94/63 92 L 10/13/23 01:31 104 H 76/49 10/13/23 01:15 89 79/49 10/13/23 01:07 111 H 80/45 10/13/23 00:00 111 H 18 89/61 92 L 10/12/23 22:39 90/54 10/12/23 20:34 97.8 F 109 H 18 90/54 93 L 10/12/23 19:45 117 H 19 102/78 99 10/12/23 18:46 121 H 18 100/71 95 10/12/23 16:57 117 H 18 101/56 96 10/12/23 14:40 120 H 18 95/81 95 10/12/23 14:34 112 H 10/12/23 13:19 97.3 F L 112 H 22 88/71 94 L 10/12/23 11:47 122 H 22 96/54 94 L 10/12/23 11:26 116 H 24 82/63 92 L 10/12/23 11:11 64 18 102/55 89 L 10/12/23 10:36 97.4 F L 89 18 98/63 88 L Intake and Output 10/12/23 10/13/23 10/13/23 22:59 06:59 14:59 Intake Total 682.651 6606.938 Output Total 800 0 Balance -683.055 3341.938 Intake: IV 40 0.9 NS 40 Intake, IV Titration 12.046 902.938 Amount Cefepime 2 gm In Sodium 100 Chloride 0.9% 100 ml @ 25 mls/hr IVPB Q8HR [facility] Rx# :[id number] Magnesium Sulfate-D5w Pmx 200 1 gm In Dextrose/Water 1 100ml.bag @ 100 mls/hr IVPB Q1H [facility] Rx#: [id number] Norepinephrine 4 mg In 12.046 2.938 Sodium Chloride 0.9% 250 ml @ 0.03 MCG/KG/MIN 8. 814 mls/hr IV .Q24H [facility] Rx#:[id number] Potassium Chloride 20 meq 100 In Water For Injection 1 100ml.bag @ 50 mls/hr IVPB Q2H [facility] Rx#: [id number] Vancomycin 1,500 mg In 500 Sodium Chloride 0.9% 500 ml 500 ml @ 167 mls/hr IVPB Q24H [facility] Rx#: [id number] Oral 100 Tube Feeding 100 Output: Urine 400 0 Post Void Residual 400 Other: Weight 77.111 kg GENERAL DESCRIPTION: Elderly male lying in bed, no distress. No tachypnea or accessory muscle of respiration use. HEENT: Shows Pallor , no scleral icterus. Oral mucous membrane is dry. NECK: Trachea central, no thyromegaly. LUNGS: Unlabored breathing. Decreased intensity of breath sounds HEART: S1, S2, regular rate and rhythm. No loud murmur ABDOMEN: Soft, no tenderness , guarding or rigidity, no organomegaly EXTREMITIES: No edema of feet. SKIN: No rash, no masses palpable. NEUROLOGICAL: The patient is lethargic orientation cannot be determined Results CBC & Chem 7: 10/16/23 06:14 10/16/23 06:14 Labs: Abnormal Lab Results - Last 24 Hours (Table) 10/12/23 10/12/23 10/13/23 Range/Units 11:04 15:41 00:56 WBC 0.8 L* (3.8-10.6) k/uL RBC 4.00 L (4.30-5.90) m/uL Hgb 11.6 L (13.0-17.5) gm/dL Hct 35.6 L (39.0-53.0) % RDW 24.4 H (11.5-15.5) % Plt Count 31 L D (150-450) k/uL Lymphocytes # (Manual) (1.0-4.8) k/uL Metamyelocytes # (Man) (0) k/uL Nucleated RBCs (0-0) /100 WBC Potassium (3.5-5.1) mmol/L Chloride (98-107) mmol/L Carbon Dioxide (22-30) mmol/L BUN (9-20) mg/dL Creatinine 1.36 H (0.66-1.25) mg/dL Glucose (74-99) mg/dL POC Glucose (mg/dL) 158 H (70-110) mg/dL Calcium (8.4-10.2) mg/dL Phosphorus (2.5-4.5) mg/dL Magnesium (1.6-2.3) mg/dL C-Reactive Protein (<1.0) mg/dL Total Protein (6.3-8.2) g/dL Albumin (3.5-5.0) g/dL 10/13/23 10/13/23 10/13/23 Range/Units 03:05 04:12 04:12 WBC 1.6 L (3.8-10.6) k/uL RBC 2.51 L (4.30-5.90) m/uL Hgb 7.2 L D (13.0-17.5) gm/dL Hct 23.1 L (39.0-53.0) % RDW 24.5 H (11.5-15.5) % Plt Count 38 L (150-450) k/uL Lymphocytes # (Manual) 0.08 L (1.0-4.8) k/uL Metamyelocytes # (Man) 0.02 H (0) k/uL Nucleated RBCs 2 H (0-0) /100 WBC Potassium 3.4 L (3.5-5.1) mmol/L Chloride 112 H (98-107) mmol/L Carbon Dioxide 18 L (22-30) mmol/L BUN 50 H (9-20) mg/dL Creatinine 1.59 H (0.66-1.25) mg/dL Glucose 112 H (74-99) mg/dL POC Glucose (mg/dL) 132 H (70-110) mg/dL Calcium 7.2 L (8.4-10.2) mg/dL Phosphorus 5.2 H (2.5-4.5) mg/dL Magnesium 1.2 L (1.6-2.3) mg/dL C-Reactive Protein 41.0 H (<1.0) mg/dL Total Protein 4.6 L (6.3-8.2) g/dL Albumin 2.3 L (3.5-5.0) g/dL 10/13/23 Range/Units 07:14 WBC (3.8-10.6) k/uL RBC (4.30-5.90) m/uL Hgb (13.0-17.5) gm/dL Hct (39.0-53.0) % RDW (11.5-15.5) % Plt Count (150-450) k/uL Lymphocytes # (Manual) (1.0-4.8) k/uL Metamyelocytes # (Man) (0) k/uL Nucleated RBCs (0-0) /100 WBC Potassium (3.5-5.1) mmol/L Chloride (98-107) mmol/L Carbon Dioxide (22-30) mmol/L BUN (9-20) mg/dL Creatinine (0.66-1.25) mg/dL Glucose (74-99) mg/dL POC Glucose (mg/dL) 125 H (70-110) mg/dL Calcium (8.4-10.2) mg/dL Phosphorus (2.5-4.5) mg/dL Magnesium (1.6-2.3) mg/dL C-Reactive Protein (<1.0) mg/dL Total Protein (6.3-8.2) g/dL Albumin (3.5-5.0) g/dL Assessment and Plan (1) Pneumonia Status: Acute Code(s): J18.9 - PNEUMONIA, UNSPECIFIED ORGANISM SNOMED Code(s): 960875875 (2) Sepsis Status: Acute Code(s): A41.9 - SEPSIS, UNSPECIFIED ORGANISM SNOMED Code(s): 61219904 Plan: 1patient is a hospital with sepsis in this patient who did have hypotension tachycardia, leukopenia in this patient who do have a history of non-small cell lung cancer with evidence of multifocal infiltrate on the chest x-ray suspicious for pneumonia we will need to cover for the resistant gram-positive as well as gram-negative pathogen 2try to obtain a sputum for Gram stain culture 3-patient is broadly covered with vancomycin and cefepime will continue while waiting for the culture to finalize We will follow on clinical condition and cultures to further adjust medication if needed Son at the bedside questions and concerns were answered Thank you for this consultation we will follow the patient along with you Dictation was produced using [employer] dictation software. please excuse any grammatical, word or spelling errors. Time with Patient: Greater than 30
[2023-10-13] MEDS: MIDODRINE 5 MG TAB PO ONE (23:10)
[2023-10-14 05:58] LABS: Glucose,Whole Blood 81 mg/dL (70-110)
[2023-10-14] MEDS: VANCOMYCIN 1,500 MG in SODIUM CHLORIDE 0.9% 500 ML 500 ML IVPB SCH (06:09)
[2023-10-14 08:42] LABS: Anisocytosis Marked; Basophils % (A) 0 %; Eosinophils % (A) 0 %; HCT 25.9 % (39.0-53.0); HGB 8.3 gm/dL (13.0-17.5); Hypochromasia Moderate; Lymphocytes # (A) 0.2 k/uL (1.0-4.8); Lymphocytes % (A) 6 %; MCHC 32.1 g/dL (31.0-37.0); MCV 90.4 fL (80.0-100.0); Macrocytosis Slight; Mean Platelet Volume 7.7; Microcytosis Slight; Monocytes # (A) 0.1 k/uL (0-1.0); Monocytes % (A) 6 %; Neutrophils % (A) 85 %; Poikilocytosis Slight; RBC 2.86 m/uL (4.30-5.90); RDW 24.7 % (11.5-15.5); WBC 2.3 k/uL (3.8-10.6)
[2023-10-14 09:04] LABS: Platelet Count 16 k/uL (150-450)
[2023-10-14 09:05] LABS: Crenated RBC Present; Ovalocytes Present
[2023-10-14 09:24] LABS: African American GFR (CKD) 36 (>60 ml/min/1.73 sqM); Anion Gap 8 mmol/L; Blood Urea Nitrogen 59 mg/dL (9-20); Calcium 8.3 mg/dL (8.4-10.2); Carbon Dioxide 20 mmol/L (22-30); Chloride 114 mmol/L (98-107); Glucose 65 mg/dL (74-99); Magnesium 2.1 mg/dL (1.6-2.3); Non-African American GFR(CKD) 31 (>60 ml/min/1.73 sqM); Potassium 3.7 mmol/L (3.5-5.1); Sodium 142 mmol/L (137-145)
[2023-10-14] MEDS ORDERED: VANCOMYCIN IV PER PHARMACY 1 EACH MISC MISCELLANE PRN (09:59)
[2023-10-14 11:23] LABS: Glucose,Whole Blood 70 mg/dL (70-110)
[2023-10-14 11:49] LABS: Glucose,Whole Blood 74 mg/dL (70-110)
[2023-10-14] MEDS: SODIUM CHLORIDE 0.9% 1,000 ML IV SCH (12:17)
[2023-10-14] MEDS: MIDODRINE 5 MG TAB PO SCH (12:17)
--- NOTE | 2023-10-14 13:11 | P.CNOR ---
History of Present Illness - HPI Consult date: 10/14/23 Requesting physician: Louie Napier Consult reason: other (Compression fractures) History of present illness: History of Presenting Illness Patient is a Pleasant 77-year-old male who was transferred to the ER from [facility]. Patient presented to the [place] ER due to increased weakness and recurrent falls. Patient has been admitted to [facility] and is being treated for pancytopenia, pneumonia, and sepsis. Patient is on Eliquis. 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 Patient had chemotherapy a while ago, and radiation therapy last Sunday. Our services have been consulted due to findings at [place] on a CT of the abdomen and pelvis that demonstrated 2 rib fractures and compression fracture of T2 and T4. Patient seen and examined this morning. Patient was resting comfortably in bed. He was assisted with repositioning with pillows. Patient reports he has had chronic back pain. Patient does report that his pain is managed on current regimen. Patient denies any numbness or tingling to the bilateral lower ex tremities. He does present with multiple bruising. Patient states that he does live at home with his spouse. He states he utilizes a walker with ambulating. Patient states that he feels his legs just give out at times and then he falls. Patient denies any perineal numbness or tingling, loss of bowel or bladder. Patient does have past mental history of Atrial Fibrillation, Cancer, COPD, Diabetes Mellitus, GERD/Reflux, Hyperlipidemia, Hypertension, Pneumonia, and Thyroid Disorder. He has a past orthopedic history of C5-C7 ACDF. Review of Systems Pertinent positives and negatives as discussed in HPI, a complete review of systems was performed and all other systems are negative. Physical Examination General: The patient is awake and alert, in no acute distress Skin: Skin is warm and dry with no obvious rashes or lesions. Patient does have generalized multiple bruising Eye: Pupils are equal, round and reactive to light, extra-ocular movements are intact; there is normal conjunctiva bilaterally. Neck: The neck is supple, there is no tenderness and limited ROM due to previous surgery. Cardiovascular: No murmur, rub or gallop is appreciated. Respiratory: Respirations are non-labored, breath sounds are equal. Gastrointestinal: Soft, non-distended, non-tender abdomen. Back: There is mild tenderness to palpation in the parathoracic region. There is no obvious deformity. Musculoskeletal: ROM limited secondary to pain and stiffness. Shoulder abduction 5/5, elbow flexors 5/5, wrist dorsiflexors 5/5. finger abductor 5/5, conche loader and unloader 5/5, hip flexor 4/5, knee flexor 4/5, ankle dorsiflexor 4/5, ankle plantarflexion 4/5 and extensor hallucis 4/5. Neurological: CN 2-12 intact. There are no obvious motor or sensory deficits. Movement and coordination equal and intact. Sensory exam to light touch intact C5-T1 and intact from L2-S1. Reflexes 2/4 in bilateral upper and lower extremities. Negative Hoffmans, babinski, and clonus signs. Psychiatric: Cooperative, appropriate mood & affect, normal judgment. Assessment and Plan h/o C5-C7 ACDF Recent fall or trauma T2 and T4 acute versus subacute compression fractures Bilateral lower extremity weakness Multiple complex comorbidities At this time we do not recommend any emergent/urgent orthopedic surgical intervention. Patient may follow-up with Dr. Menjivar office for further evaluation as needed. Orthopedics is signing off at this time. Please do not hesitate to contact us for any further questions. 2. Appreciate medical management 3. Pain management - Continue with conservative management, [place]. Patient may benefit from trial of steroids. 4. DVT prophylaxis - Eliquis 5. Appreciate consult I reviewed and discussed this case with my attending Dr. Menjivar, whom has reviewed this chart and films and is in agreement with assessment and plan of care as outlined above. I have personally seen and examined the patient, performed the documentation and the assessment and plan as written. Number of minutes spent on the visit: 20m. Past Medical History Past Medical History: Atrial Fibrillation, Cancer, COPD, Diabetes Mellitus, GERD/Reflux, Hyperlipidemia, Hypertension, Pneumonia, Thyroid Disorder Additional Past Medical History / Comment(s): hx foot swelling and drainage left healing, taking lasix for this, was very painful, , ultrasound done on 05/31/23 lung cancer 06/18, chemo and radiation. diarrhea since chemo last sunday History of Any Multi-Drug Resistant Organisms: None Reported Past Surgical History: Heart Catheterization, Orthopedic Surgery Additional Past Surgical History / Comment(s): back surg, neck surg, right nipple removed due to pain benign, nerve damage to left side, skin cancer removed ear and face Past Anesthesia/Blood Transfusion Reactions: No Reported Reaction Additional Past Anesthesia/Blood Transfusion Reaction / Comm: no blood transfusion Past Psychological History: No Psychological Hx Reported Additional Psychological History / Comment(s): taking celexa since lung dx Smoking Status: Former smoker Past Alcohol Use History: None Reported Additional Past Alcohol Use History / Comment(s): 2 cigars/day at least per . stopped smoking cigarettes 3-4 yrs ago Past Drug Use History: None Reported - Past Family History Mother Family Medical History: Cancer, CVA/TIA Additional Family Medical History / Comment(s): skin Father Family Medical History: Myocardial Infarction ([place]) Additional Family Medical History / Comment(s): chf Medications and Allergies Home Medications Medication Instructions Recorded Confirmed Type Metoprolol Tartrate [Lopressor] 12.5 mg PO BID 03/16/23 10/12/23 History Aspirin 81 mg PO DAILY 90 Days #90 tab 03/19/23 10/12/23 Rx Famotidine [Pepcid] 20 mg PO DAILY 06/01/23 10/12/23 History Gabapentin 300 mg PO BID 06/01/23 10/12/23 History HYDROcodone/APAP 5-325MG [[place] 1 tab PO QID PRN 07/31/23 10/12/23 History 5-325] metFORMIN HCL [Glucophage] 500 mg PO BID 07/31/23 10/12/23 History Citalopram Hydrobromide 10 mg PO DAILY 08/13/23 10/12/23 History [Citalopram HBr] Glimepiride 1 mg PO DAILY 08/13/23 10/12/23 History Ondansetron [Zofran] 4 mg PO Q8H PRN 08/13/23 10/12/23 History Zolpidem Tartrate [Ambien] 5 mg PO HS 08/30/23 10/12/23 History Apixaban [Eliquis] 5 mg PO BID tab 09/01/23 10/12/23 Rx Atorvastatin [Lipitor] 40 mg PO HS 10/12/23 10/12/23 History Furosemide [Lasix] 40 mg PO BID 10/12/23 10/12/23 History Omeprazole [PriLOSEC] 40 mg PO DAILY 10/12/23 10/12/23 History Potassium Chloride ER [K-Dur 20] 20 meq PO DAILY 10/12/23 10/12/23 History dilTIAZem HCL [Cardizem CD] 240 mg PO DAILY 10/12/23 10/12/23 History Allergies Allergy/AdvReac Type Severity Reaction Status Date / Time cephalexin [From Keflex] Allergy Mild Rash/Hives Verified 10/12/23 11:55 codeine Allergy Mild Rash/Hives Verified 10/12/23 11:55 Results - Labs Labs: Abnormal Lab Results - Last 24 Hours (Table) 10/13/23 10/13/23 10/13/23 Range/Units 04:04 11:05 16:28 POC Glucose (mg/dL) 145 H 148 H (70-110) mg/dL Procalcitonin 2.03 H (0.02-0.09) ng/mL 10/13/23 Range/Units 19:52 POC Glucose (mg/dL) 143 H (70-110) mg/dL Procalcitonin (0.02-0.09) ng/mL Microbiology - Last 24 Hours (Table) 10/12/23 15:20 Blood Culture - Preliminary Blood 10/12/23 15:35 Blood Culture - Preliminary Blood H & H 10/12/23 10/13/23 Range/Units 11:04 04:12 Hgb 11.6 L 7.2 L D (13.0-17.5) gm/dL Hct 35.6 L 23.1 L (39.0-53.0) % Result Diagrams: 10/14/23 06:47 10/14/23 06:47
--- NOTE | 2023-10-14 13:57 | P.PN ---
Subjective Progress Note Date: 10/14/23 Principal diagnosis: Acute community-acquired pneumonia This is a 77-year-old white male, very familiar to my service, on 06/07/2023, patient was diagnosed with poorly differentiated non-small cell lung cancer, and he was referred to oncology and radiation oncology, patient has been undergoing chemotherapy and radiation therapy. 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 Patient had chemotherapy a while ago, and radiation therapy last Sunday. Patient was seen in the ER in [place] mostly with recurrent falls, and he was found to have 2 rib fractures, compression fracture of T2 and T4, he was also noted to have pancytopenia and chest x-ray suggestive of pneumonia. Transferred to [facility], placed on vancomycin and Zosyn, patient was also given 3 L of IV fluids prior to transfer. Last night I was notified about this patient having low blood pressure, and may require placement on norepinephrine, hence I transferred the patient to the ICU. He was very briefly on norepinephrine, and this was discontinued, did not require any more patient is hemodynamically stable, and he does not seem to be in any distress.However his labs are worrisome, patient does have low WBC count of 1.6, hemoglobin of 7.2, basic metabolic profile is relatively normal however his BUN is 50 creatinine 1.59 considering his immunologic status, patient is now on vancomycin and cefepime, empirically, we suspect that the patient has pneumonia, sepsis, doubt septic shock Patient was reevaluated today on 10/14/2023, on 4 L nasal cannula, O2 saturation 94%, patient is noticing very minimal improvement compared to the last couple of days. Nonetheless continues to have shortness of breath, intermittent cough, no wheezing, cough is productive with whitish phlegm. Continues to have pancytopenia with WBC count of 2.3 platelets are 16 hemoglobin is 8.3. This is being addressed by oncology on the case. His basic metabolic profile is normal BUN is 59 creatinine 2.03, worsening compared to his admission creatinine patient is on vancomycin, he is also on cefepime, may have to consider stopping vancomycin if the cultures remain negative for MRSA Objective - Vital Signs Vital signs: Vital Signs Temp 97.4 F L 10/14/23 12:00 Pulse 99 10/14/23 12:00 Resp 19 10/14/23 12:00 BP 86/54 10/14/23 12:00 Pulse Ox 94 L 10/14/23 12:00 FiO2 Intake & Output 10/13/23 10/14/23 10/14/23 18:59 06:59 18:59 Intake Total 1892.938 480 Output Total 200 500 Balance 1692.938 -500 480 Weight 77.111 kg Intake: IV 100 0.9 NS 100 Intake, IV Titration 1202.938 Amount Cefepime 2 gm In Sodium 100 Chloride 0.9% 100 ml @ 25 mls/hr IVPB Q8HR RO[facility] Rx# :[id number] Magnesium Sulfate-D5w Pmx 400 1 gm In Dextrose/Water 1 100ml.bag @ 100 mls/hr IVPB Q1H RO[facility]IE Rx#: [id number] Norepinephrine 4 mg In 2.938 Sodium Chloride 0.9% 250 ml @ 0.03 MCG/KG/MIN 8. 814 mls/hr IV .Q24H ROSE MARIE Rx#:[id number] Potassium Chloride 20 meq 200 In Water For Injection 1 100ml.bag @ 50 mls/hr IVPB Q2H ROSE MARIE Rx#: [id number] Vancomycin 1,500 mg In 500 Sodium Chloride 0.9% 500 ml 500 ml @ 167 mls/hr IVPB Q24H ROSE [facility]IE Rx#: [id number] Oral 590 480 Output: Urine 200 500 Other: Voiding Method Urinal Urinal # Voids 0 - Exam GENERAL EXAM: Reveals 77-year-old white male in no distress on 4 L nasal cannula with O2 sats of 84% HEAD: Normocephalic. Bruising noted on the forehead from recent fall. Seems to be relatively superficial 94% EYES: Normal reaction of pupils, equal size. NOSE: Clear with pink turbinates. THROAT: No erythema or exudates. NECK: No masses, no JVD. CHEST: No chest wall deformity. LUNGS: Crackles at the bases no rhonchi no wheezes. CVS: S1 and S2 normal with no audible murmur, regular rhythm. ABDOMEN: No hepatosplenomegaly, normal bowel sounds, no guarding or rigidity. SKIN: No rashes, patient does have superficial bruising noted on the forehead from recent fall. CENTRAL NERVOUS SYSTEM: No focal deficits, tone is normal in all 4 extremities. EXTREMITIES: Mild clubbing, no edema or cyanosis. Psychiatric: Normal mood and affect and no mental status examination. - Labs CBC & Chem 7: 10/14/23 06:47 10/14/23 06:47 Labs: Abnormal Lab Results - Last 24 Hours (Table) 10/13/23 10/13/23 10/14/23 Range/Units 16:28 19:52 06:47 WBC 2.3 L (3.8-10.6) k/uL RBC 2.86 L (4.30-5.90) m/uL Hgb 8.3 L (13.0-17.5) gm/dL Hct 25.9 L (39.0-53.0) % RDW 24.7 H (11.5-15.5) % Plt Count 16 L* D (150-450) k/uL Lymphocytes # 0.2 L (1.0-4.8) k/uL Chloride (98-107) mmol/L Carbon Dioxide (22-30) mmol/L BUN (9-20) mg/dL Creatinine (0.66-1.25) mg/dL Glucose (74-99) mg/dL POC Glucose (mg/dL) 148 H 143 H (70-110) mg/dL Calcium (8.4-10.2) mg/dL 10/14/23 Range/Units 06:47 WBC (3.8-10.6) k/uL RBC (4.30-5.90) m/uL Hgb (13.0-17.5) gm/dL Hct (39.0-53.0) % RDW (11.5-15.5) % Plt Count (150-450) k/uL Lymphocytes # (1.0-4.8) k/uL Chloride 114 H (98-107) mmol/L Carbon Dioxide 20 L (22-30) mmol/L BUN 59 H (9-20) mg/dL Creatinine 2.03 H (0.66-1.25) mg/dL Glucose 65 L (74-99) mg/dL POC Glucose (mg/dL) (70-110) mg/dL Calcium 8.3 L (8.4-10.2) mg/dL Microbiology - Last 24 Hours (Table) 10/12/23 15:20 Blood Culture - Preliminary Blood 10/12/23 15:35 Blood Culture - Preliminary Blood Assessment and Plan Assessment: Impression: Acute pneumonia, community-acquired, however the patient is immunocompromise, and gram-negative pneumonia is strongly suspected. Sepsis secondary to pneumonia patient received fluid resuscitation in [facility] before transferring to [facility]. Orthostatic hypotension prior to his initial presentation with recurrent falls secondary to orthostasis. Acute kidney injury secondary to sepsis and low blood pressure. Compression fractures T4 and T2 related to fall. Rib fractures related to fall. Pancytopenia related to chemotherapy. History of benign essential hypertension Paroxysmal atrial fibrillation Type 2 diabetes without complications History of non-small cell lung cancer, patient finished chemotherapy and had recent radiation therapy. Recommendation: Continue antibiotics including cefepime, address vancomycin in the next 24 hours, consider stopping it if no MRSA cultured in the blood or sputum. Resume home meds including Eliquis Continue to monitor renal profile on a daily basis.. Check blood cultures and possibly sputum cultures if possible GI and DVT prophylaxis. Patient wishes DNR CODE STATUS Will continue to follow Time with Patient: Less than 30
[2023-10-14 16:13] LABS: Glucose,Whole Blood 104 mg/dL (70-110)
[2023-10-14 18:30] LABS: Glucose,Whole Blood 119 mg/dL (70-110)
[2023-10-14] MEDS: SODIUM CHLORIDE 0.9% 1,000 ML IV ONE (18:49)
[2023-10-14] MEDS: HYDROCORTISONE SUCCINATE 100 MG/2 ML VIAL IV STA (18:49)
--- NOTE | 2023-10-14 19:36 | XR ---
EXAMINATION TYPE: XR chest 1V portable DATE OF EXAM: 10/14/2023 6:47 PM CLINICAL INDICATION:Male, 77 years old with history of SOB;hypoxia; PH[facility] COMPARISON: Chest radiographs from 10/13/2023. TECHNIQUE: XR chest 1V portable Frontal view of the chest. FINDINGS: Lungs/Pleura: Persistent scattered reticular and hazy opacities of the lungs. Pulmonary vascularity: Unremarkable. Heart/mediastinum: Cardiomediastinal silhouette is enlarged and stable. Musculoskeletal: No acute osseous pathology. There is fixation hardware in the lower cervical spine. Other findings: None Lines/Tubes: Right-sided PICC line with distal tip at the cavoatrial junction. IMPRESSION: Persistent bilateral increased opacities could reflect chronic fibrotic change. Areas of acute infilt rate and/or edema difficult to exclude. No significant change from one day earlier.
[2023-10-14 20:11] LABS: Glucose,Whole Blood 102 mg/dL (70-110)
[2023-10-14 21:23] LABS: Anisocytosis Marked; Basophils % (A) 1 %; Eosinophils % (A) 0 %; HCT 21.7 % (39.0-53.0); Hypochromasia Marked; Lymphocytes # (A) 0.1 k/uL (1.0-4.8); Lymphocytes % (A) 10 %; MCH 29.2 pg (25.0-35.0); MCHC 31.6 g/dL (31.0-37.0); MCV 92.5 fL (80.0-100.0); Macrocytosis Slight; Mean Platelet Volume 8.5; Microcytosis Slight; Monocytes # (A) 0.1 k/uL (0-1.0); Monocytes % (A) 7 %; Neutrophils % (A) 78 %; Poikilocytosis Slight; RBC 2.34 m/uL (4.30-5.90); RDW 24.8 % (11.5-15.5)
[2023-10-14 21:26] LABS: WBC 1.3 k/uL (3.8-10.6)
[2023-10-14 21:27] LABS: HGB 6.8 gm/dL (13.0-17.5); Platelet Count 15 k/uL (150-450)
[2023-10-14] MEDS: LORazepam 2 MG/ML INJ ONE (22:41)
[2023-10-14 22:52] LABS: Allen Test Performed? Yes
[2023-10-14 23:11] LABS: ABG Base Excess -9.5 mmol/L; ABG HCO3 17 mmol/L (21-25); ABG PCO2 38 mmHg (35-45); ABG PH 7.27 (7.35-7.45); ABG PO2 99 mmHg (83-108); ABG TCO2 19 mmol/L (19-24)
[2023-10-14] MEDS: NOREPINEPHRINE 4 MG in SODIUM CHLORIDE 0.9% 250 ML IV SCH (23:19)
[2023-10-14 23:42] LABS: Glucose,Whole Blood 134 mg/dL (70-110)
[2023-10-15] MEDS: DEXTROSE 5% IN WATER 1,000 ML with SODIUM BICARB (1 MEQ/ML) 150 ML IV SCH (00:31)
[2023-10-15 04:54] LABS: Anisocytosis Moderate; Basophils % (A) 1 %; Eosinophils % (A) 0 %; HCT 28.7 % (39.0-53.0); Hypochromasia Marked; Lymphocytes # (A) 0.2 k/uL (1.0-4.8); Lymphocytes % (A) 10 %; MCH 29.9 pg (25.0-35.0); MCHC 31.3 g/dL (31.0-37.0); MCV 95.4 fL (80.0-100.0); Macrocytosis Moderate; Mean Platelet Volume 12.2; Monocytes # (A) 0.1 k/uL (0-1.0); Monocytes % (A) 7 %; Neutrophils # (A) 1.4 k/uL (1.3-7.7); Neutrophils % (A) 77 %; Poikilocytosis Slight; RBC 3.01 m/uL (4.30-5.90); RDW 23.4 % (11.5-15.5); WBC 1.8 k/uL (3.8-10.6)
[2023-10-15 04:58] LABS: Platelet Count 22 k/uL (150-450)
[2023-10-15 05:14] LABS: Glucose,Whole Blood 156 mg/dL (70-110)
[2023-10-15 05:21] LABS: African American GFR (CKD) 36 (>60 ml/min/1.73 sqM); Anion Gap 11 mmol/L; Blood Urea Nitrogen 57 mg/dL (9-20); Calcium 7.9 mg/dL (8.4-10.2); Carbon Dioxide 14 mmol/L (22-30); Chloride 115 mmol/L (98-107); Glucose 132 mg/dL (74-99); Non-African American GFR(CKD) 31 (>60 ml/min/1.73 sqM); Potassium 4.2 mmol/L (3.5-5.1); Sodium 140 mmol/L (137-145)
[2023-10-15 06:55] LABS: Glucose,Whole Blood 188 mg/dL (70-110)
--- NOTE | 2023-10-15 08:09 | XR ---
EXAMINATION TYPE: XR chest 1V portable DATE OF EXAM: 10/15/2023 COMPARISON: 10/14/2023 HISTORY: Hypoxia TECHNIQUE: Single frontal view of the chest is obtained. FINDINGS: Postsurgical change overlying cervical spine. There is chronic appearing interstitial find ings with bilateral consolidation small effusion. Heart is enlarged. No pneumothorax. Left-sided PICC line is stable. Postsurgical change overlying the cervical spine. IMPRESSION: Pulmonary fibrosis with bilateral superimposed infiltrate small left pleural effusion.
[2023-10-15] MEDS: HYDROmorphone 0.5 MG/0.5 ML SYRINGE IVP PRN (10:02)
--- NOTE | 2023-10-15 11:23 | P.PN ---
Subjective Progress Note Date: 10/14/23 Principal diagnosis: Reason for follow-up is pneumonia Patient is a 77-year-old male with a past medical history significant for diabetes mellitus COPD atrial fibrillation hypertension hyperlipidemia poorly differentiated non-small cell lung cancer patient has been undergoing chemo and radiation therapy patient apparently has been getting weaker recently and did have multiple falls and was evaluated the [facility] after a fall with the patient was noted to have 2 rib fracture compression fracture of the T2 and T4 at the patient noted to be pancytopenic chest x-ray was suggestive of possible pneumonia for the patient was transferred to [facility]. On today's evaluation that is 10/14/2023,the patient is more awake and alert today and denies any fever or any chills, patient is breathing comfortably on 4 L nasal cannula oxygen, the patient denies has been complaining of chest pain and did have a cough but not bring up any sputum no vomiting or diarrhea has been reported. Patient white count is 1.3, creatinine is 2.03 blood cultures so far pending sputum culture not collected Objective - Vital Signs Vital signs: Vital Signs Temp 97.5 F L 10/14/23 08:10 Pulse 114 H 10/14/23 08:10 Resp 19 10/14/23 08:10 BP 92/53 10/14/23 08:10 Pulse Ox 90 L 10/14/23 08:10 FiO2 Intake & Output 10/13/23 10/14/23 10/14/23 18:59 06:59 18:59 Intake Total 1892.938 240 Output Total 200 500 Balance 1692.938 -500 240 Weight 77.111 kg Intake: IV 100 0.9 NS 100 Intake, IV Titration 1202.938 Amount Cefepime 2 gm In Sodium 100 Chloride 0.9% 100 ml @ 25 mls/hr IVPB Q8HR [facility] Rx# :[id number] Magnesium Sulfate-D5w Pmx 400 1 gm In Dextrose/Water 1 100ml.bag @ 100 mls/hr IVPB Q1H RO[facility] Rx#: [id number] Norepinephrine 4 mg In 2.938 Sodium Chloride 0.9% 250 ml @ 0.03 MCG/KG/MIN 8. 814 mls/hr IV .Q24H RO[facility]IE Rx#:[id number] Potassium Chloride 20 meq 200 In Water For Injection 1 100ml.bag @ 50 mls/hr IVPB Q2H ROSE [facility]IE Rx#: [id number] Vancomycin 1,500 mg In 500 Sodium Chloride 0.9% 500 ml 500 ml @ 167 mls/hr IVPB Q24H ROSE [facility]IE Rx#: [id number] Oral 590 240 Output: Urine 200 500 Other: Voiding Method Urinal Urinal # Voids 0 - Exam GENERAL DESCRIPTION: An elderly male lying in bed in no distress RESPIRATORY SYSTEM: Unlabored breathing , decreased breath sounds at bases HEART: S1 S2 regular rate and rhythm , ABDOMEN: Soft , no tenderness EXTREMITIES: No edema feet - Labs CBC & Chem 7: 10/15/23 04:40 10/15/23 04:40 Labs: Abnormal Lab Results - Last 24 Hours (Table) 10/13/23 10/13/23 10/13/23 Range/Units 04:04 11:05 16:28 WBC (3.8-10.6) k/uL RBC (4.30-5.90) m/uL Hgb (13.0-17.5) gm/dL Hct (39.0-53.0) % RDW (11.5-15.5) % Plt Count (150-450) k/uL Lymphocytes # (1.0-4.8) k/uL Chloride (98-107) mmol/L Carbon Dioxide (22-30) mmol/L BUN (9-20) mg/dL Creatinine (0.66-1.25) mg/dL Glucose (74-99) mg/dL POC Glucose (mg/dL) 145 H 148 H (70-110) mg/dL Calcium (8.4-10.2) mg/dL Procalcitonin 2.03 H (0.02-0.09) ng/mL 10/13/23 10/14/23 10/14/23 Range/Units 19:52 06:47 06:47 WBC 2.3 L (3.8-10.6) k/uL RBC 2.86 L (4.30-5.90) m/uL Hgb 8.3 L (13.0-17.5) gm/dL Hct 25.9 L (39.0-53.0) % RDW 24.7 H (11.5-15.5) % Plt Count 16 L* D (150-450) k/uL Lymphocytes # 0.2 L (1.0-4.8) k/uL Chloride 114 H (98-107) mmol/L Carbon Dioxide 20 L (22-30) mmol/L BUN 59 H (9-20) mg/dL Creatinine 2.03 H (0.66-1.25) mg/dL Glucose 65 L (74-99) mg/dL POC Glucose (mg/dL) 143 H (70-110) mg/dL Calcium 8.3 L (8.4-10.2) mg/dL Procalcitonin (0.02-0.09) ng/mL Microbiology - Last 24 Hours (Table) 10/12/23 15:20 Blood Culture - Preliminary Blood 10/12/23 15:35 Blood Culture - Preliminary Blood Assessment and Plan (1) Pneumonia Current Visit: Yes Status: Acute Code(s): J18.9 - PNEUMONIA, UNSPECIFIED ORGANISM SNOMED Code(s): 378175807 (2) Sepsis Current Visit: Yes Status: Acute Code(s): A41.9 - SEPSIS, UNSPECIFIED ORGANISM SNOMED Code(s): 49317440 Plan: 1patient presented to the hospital with sepsis in this patient who did have hypotension tachycardia, leukopenia in this patient who do have a history of non-small cell lung cancer with evidence of multifocal infiltrate on the chest x-ray suspicious for pneumonia we will need to cover for the resistant gram- positive as well as gram-negative pathogen 2try to obtain a sputum for Gram stain culture 3-patient to continue with vancomycin and cefepime will continue while waiting for the culture to finalize Family at the bedside multiple question concern answered Dictation was produced using [employer] dictation software. please excuse any grammatical, word or spelling errors. Time with Patient: Less than 30
--- NOTE | 2023-10-15 11:26 | P.PN ---
Subjective Progress Note Date: 10/15/23 Principal diagnosis: Reason for follow-up is pneumonia Patient is a 77-year-old male with a past medical history significant for diabetes mellitus COPD atrial fibrillation hypertension hyperlipidemia poorly differentiated non-small cell lung cancer patient has been undergoing chemo and radiation therapy patient apparently has been getting weaker recently and did have multiple falls and was evaluated the [facility] after a fall with the patient was noted to have 2 rib fracture compression fracture of the T2 and T4 at the patient noted to be pancytopenic chest x-ray was suggestive of possible pneumonia for the patient was transferred to [facility]. On today's evaluation that is 10/15/2023,the patient has been moved back to the ICU because of low blood pressure and worsening of his respiratory status he is currently on a BiPAP patient becomes agitated when the BiPAP is taken off per the family at the bedside is currently on 100% FiO2 no vomiting diarrhea or any other changes reported by the family at the bedside patient unable to provide any history at this point. Patient did have a white count of 1.8 creatinine 2.03 blood culture so far negative, MRSA nasal swab is negative Objective - Vital Signs Vital signs: Vital Signs Temp 97.0 F L 10/15/23 08:00 Pulse 116 H 10/15/23 10:45 Resp 16 10/15/23 10:45 BP 72/61 10/15/23 10:45 Pulse Ox 100 10/15/23 10:45 FiO2 60 10/15/23 11:21 Intake & Output 10/14/23 10/15/23 10/15/23 18:59 06:59 18:59 Intake Total 1420 2426.404 460 Output Total 200 245 65 Balance 1220 2181.404 395 Intake: IV 2100 460 0.9 NS 500 60 Cefepime 2 gm In Sodium 100 Chloride 0.9% 100 ml @ 25 mls/hr IVPB Q12HR [facility] Rx #:[id number] Dextrose 5% in Water 1, 450 300 000 ml @ 75 mls/hr IV . [id number] [facility] with Sodium Bicarb (1 Meq/ml) 150 ml Rx#:[id number] Sodium Chloride 0.9% 1, 150 000 ml @ 75 mls/hr IV . [id number] [facility] Rx#:[id number] Sodium Chloride 0.9% 1, 1000 000 ml @ 999 mls/hr IV . Q1H1M [facility] Rx#:[id number] Intake, IV Titration 675 16.404 0 Amount Cefepime 2 gm In Sodium 100 Chloride 0.9% 100 ml @ 25 mls/hr IVPB Q12HR [facility] Rx #:[id number] Norepinephrine 4 mg In 16.404 0 Sodium Chloride 0.9% 250 ml @ 0.03 MCG/KG/MIN 8. 814 mls/hr IV .Q24H [facility] Rx#:[id number] Sodium Chloride 0.9% 1, 75 000 ml @ 75 mls/hr IV . [id number] [facility] Rx#:[id number] Vancomycin 1,500 mg In 500 Sodium Chloride 0.9% 500 ml 500 ml @ 167 mls/hr IVPB Q24H [facility] Rx#: [id number] Oral 480 Blood Product 265 310 Platelet Pheresis Pas 265 Psoralen Unit [id number] Rc As-1 Unit 310 [id number] Output: Urine 200 245 65 Other: Voiding Method Urinal Indwelling Catheter Indwelling Catheter - Exam GENERAL DESCRIPTION: An elderly male lying in bed in no distress RESPIRATORY SYSTEM: Unlabored breathing , decreased breath sounds at bases HEART: S1 S2 regular rate and rhythm , ABDOMEN: Soft , no tenderness EXTREMITIES: No edema feet - Labs CBC & Chem 7: 10/15/23 04:40 10/15/23 04:40 Labs: Abnormal Lab Results - Last 24 Hours (Table) 10/14/23 10/14/23 10/14/23 Range/Units 15:47 18:29 21:11 WBC 1.3 L* (3.8-10.6) k/uL RBC 2.34 L (4.30-5.90) m/uL Hgb 6.8 L* D (13.0-17.5) gm/dL Hct 21.7 L (39.0-53.0) % RDW 24.8 H (11.5-15.5) % Plt Count 15 L* (150-450) k/uL Neutrophils # 1.0 L (1.3-7.7) k/uL Lymphocytes # 0.1 L (1.0-4.8) k/uL ABG pH (7.35-7.45) ABG HCO3 (21-25) mmol/L Chloride (98-107) mmol/L Carbon Dioxide (22-30) mmol/L BUN (9-20) mg/dL Creatinine (0.66-1.25) mg/dL Glucose (74-99) mg/dL POC Glucose (mg/dL) 119 H (70-110) mg/dL Plasma Lactic Acid Pradip (0.7-2.0) mmol/L Calcium (8.4-10.2) mg/dL Crossmatch See Detail 10/14/23 10/14/23 10/15/23 Range/Units 22:45 23:40 00:04 WBC (3.8-10.6) k/uL RBC (4.30-5.90) m/uL Hgb (13.0-17.5) gm/dL Hct (39.0-53.0) % RDW (11.5-15.5) % Plt Count (150-450) k/uL Neutrophils # (1.3-7.7) k/uL Lymphocytes # (1.0-4.8) k/uL ABG pH 7.27 L (7.35-7.45) ABG HCO3 17 L (21-25) mmol/L Chloride (98-107) mmol/L Carbon Dioxide (22-30) mmol/L BUN (9-20) mg/dL Creatinine (0.66-1.25) mg/dL Glucose (74-99) mg/dL POC Glucose (mg/dL) 134 H (70-110) mg/dL Plasma Lactic Acid Pradip 2.2 H* (0.7-2.0) mmol/L Calcium (8.4-10.2) mg/dL Crossmatch 10/15/23 10/15/23 10/15/23 Range/Units 04:40 04:40 05:12 WBC 1.8 L (3.8-10.6) k/uL RBC 3.01 L (4.30-5.90) m/uL Hgb 9.0 L D (13.0-17.5) gm/dL Hct 28.7 L (39.0-53.0) % RDW 23.4 H (11.5-15.5) % Plt Count 22 L (150-450) k/uL Neutrophils # (1.3-7.7) k/uL Lymphocytes # 0.2 L (1.0-4.8) k/uL ABG pH (7.35-7.45) ABG HCO3 (21-25) mmol/L Chloride 115 H (98-107) mmol/L Carbon Dioxide 14 L (22-30) mmol/L BUN 57 H (9-20) mg/dL Creatinine 2.03 H (0.66-1.25) mg/dL Glucose 132 H (74-99) mg/dL POC Glucose (mg/dL) 156 H (70-110) mg/dL Plasma Lactic Acid Pradip (0.7-2.0) mmol/L Calcium 7.9 L (8.4-10.2) mg/dL Crossmatch 10/15/23 Range/Units 06:53 WBC (3.8-10.6) k/uL RBC (4.30-5.90) m/uL Hgb (13.0-17.5) gm/dL Hct (39.0-53.0) % RDW (11.5-15.5) % Plt Count (150-450) k/uL Neutrophils # (1.3-7.7) k/uL Lymphocytes # (1.0-4.8) k/uL ABG pH (7.35-7.45) ABG HCO3 (21-25) mmol/L Chloride (98-107) mmol/L Carbon Dioxide (22-30) mmol/L BUN (9-20) mg/dL Creatinine (0.66-1.25) mg/dL Glucose (74-99) mg/dL POC Glucose (mg/dL) 188 H (70-110) mg/dL Plasma Lactic Acid Pradip (0.7-2.0) mmol/L Calcium (8.4-10.2) mg/dL Crossmatch Microbiology - Last 24 Hours (Table) 10/12/23 15:20 Blood Culture - Preliminary Blood 10/12/23 15:35 Blood Culture - Preliminary Blood 10/13/23 08:35 Nasal Screen MRSA/MSSA - Final Nasal Swab Assessment and Plan (1) Pneumonia Current Visit: Yes Status: Acute Code(s): J18.9 - PNEUMONIA, UNSPECIFIED ORGANISM SNOMED Code(s): 004427867 (2) Sepsis Current Visit: Yes Status: Acute Code(s): A41.9 - SEPSIS, UNSPECIFIED ORG ANISM SNOMED Code(s): 51048499 Plan: 1patient presented to the hospital with sepsis in this patient who did have hypotension tachycardia, leukopenia in this patient who do have a history of non-small cell lung cancer with evidence of multifocal infiltrate on the chest x-ray suspicious for pneumonia we will need to cover for the resistant gram- positive as well as gram-negative pathogen 2sputum cannot be collected blood culture for negative MRSA nasal swab is negative 3-patient to continue with cefepime however vancomycin has been discontinued as his MRSA nasal swab was negative and less likely MRSA pneumonia Family at the bedside multiple question concern answered, overall prognosis remains to be guarded Dictation was produced using [employer] dictation software. please excuse any grammatical, word or spelling errors. Time with Patient: Less than 30
[2023-10-15 11:29] LABS: Glucose,Whole Blood 214 mg/dL (70-110)
--- NOTE | 2023-10-15 11:33 | P.PN ---
Subjective Progress Note Date: 10/15/23 Principal diagnosis: Respiratory failure. Acute community-acquired pneumonia This is a 77-year-old white male, very familiar to my service, on 06/07/2023, patient was diagnosed with poorly differentiated non-small cell lung cancer, and he was referred to oncology and radiation oncology, patient has been undergoing chemotherapy and radiation therapy. 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 Patient had chemotherapy a while ago, and radiation therapy last Sunday. Patient was seen in the ER in [place] mostly with recurrent falls, and he was found to have 2 rib fractures, compression fracture of T2 and T4, he was also noted to have pancytopenia and chest x-ray suggestive of pneumonia. Transferred to [facility], placed on vancomycin and Zosyn, patient was also given 3 L of IV fluids prior to transfer. Last night I was notified about this patient having low blood pressure, and may require placement on norepinephrine, hence I transferred the patient to the ICU. He was very briefly on norepinephrine, and this was discontinued, did not require any more patient is hemodynamically stable, and he does not seem to be in any distress.However his labs are worrisome, patient does have low WBC count of 1.6, hemoglobin of 7.2, basic metabolic profile is relatively normal however his BUN is 50 creatinine 1.59 considering his immunologic status, patient is now on vancomycin and cefepime, empirically, we suspect that the patient has pneumonia, sepsis, doubt septic shock Patient was reevaluated today on 10/14/2023, on 4 L nasal cannula, O2 saturation 94%, patient is noticing very minimal improvement compared to the last couple of days. Nonetheless continues to have shortness of breath, intermittent cough, no wheezing, cough is productive with whitish phlegm. Continues to have pancytopenia with WBC count of 2.3 platelets are 16 hemoglobin is 8.3. This is being addressed by oncology on the case. His basic metabolic profile is normal BUN is 59 creatinine 2.03, worsening compared to his admission creatinine patient is on vancomycin, he is also on cefepime, may have to consider stopping vancomycin if the cultures remain negative for MRSA Progress note dated October 15, 2026. 77-year-old male, admitted on October 12. The patient was admitted with multiple falls, confusion, and weakness. He remains on vancomycin and cefepime, and is receiving oxygen, 8 L, high flow. He is also getting dextrose with half- normal saline with 3 ampoules of sodium bicarbonate, at 75 cc an hour. In addition, the patient is getting saline at KVO. The patient was on norepinephrine, for a period of time, but is not on it currently. Laboratory data includes a white count of 1.8, hemoglobin 9, hematocrit 28.7, and platelet count 22,000. Sodium 140, potassium 4.2, chlorides 115, CO2 14, anion gap 11, BUN 57, creatinine 2.03. Glucose is 188. Calcium 7.9. Culture data is thus far negative. Chest x-ray shows diffuse bilateral infiltrates, which could relate to pulmonary fibrosis, cancer, or pneumonia. I was able to have a talk with the patient's daughter, and son, and they decided to make the patient a DO NOT RESUSCITATE. They realize, that we should be focusing primarily on reasonable treatments, but to do nothing that is extraordinary. This will include no CPR, and no intubation or mechanical ventilation. I think that is appropriate given his current situation clinically. Objective - Vital Signs Vital signs: Vital Signs Temp 97.0 F L 10/15/23 08:00 Pulse 116 H 10/15/23 10:45 Resp 16 10/15/23 10:45 BP 72/61 10/15/23 10:45 Pulse Ox 100 10/15/23 10:45 FiO2 60 10/15/23 11:21 Intake & Output 10/14/23 10/15/23 10/15/23 18:59 06:59 18:59 Intake Total 1420 2426.404 460 Output Total 200 245 65 Balance 1220 2181.404 395 Intake: IV 2100 460 0.9 NS 500 60 Cefepime 2 gm In Sodium 100 Chloride 0.9% 100 ml @ 25 mls/hr IVPB Q12HR [facility] Rx #:[id number] Dextrose 5% in Water 1, 450 300 000 ml @ 75 mls/hr IV . [id number] [facility] with Sodium Bicarb (1 Meq/ml) 150 ml Rx#:[id number] Sodium Chloride 0.9% 1, 150 000 ml @ 75 mls/hr IV . [id number] [facility] Rx#:[id number] Sodium Chloride 0.9% 1, 1000 000 ml @ 999 mls/hr IV . Q1H1M [facility] Rx#:[id number] Intake, IV Titration 675 16.404 0 Amount Cefepime 2 gm In Sodium 100 Chloride 0.9% 100 ml @ 25 mls/hr IVPB Q12HR [facility] Rx #:[id number] Norepinephrine 4 mg In 16.404 0 Sodium Chloride 0.9% 250 ml @ 0.03 MCG/KG/MIN 8. 814 mls/hr IV .Q24H [facility] Rx#:[id number] Sodium Chloride 0.9% 1, 75 000 ml @ 75 mls/hr IV . [id number] [facility] Rx#:[id number] Vancomycin 1,500 mg In 500 Sodium Chloride 0.9% 500 ml 500 ml @ 167 mls/hr IVPB Q24H [facility] Rx#: [id number] Oral 480 Blood Product 265 310 Platelet Pheresis Pas 265 Psoralen Unit [id number] Rc As-1 Unit 310 [id number] Output: Urine 200 245 65 Other: Voiding Method Urinal Indwelling Catheter Indwelling Catheter - Exam Very restless, somewhat agitated patient, currently on 8 L high flow oxygen. HEENT examination is grossly unremarkable. Neck supple. Full range of motion. No adenopathy thyromegaly or neck vein distention. Cardiovascular examination reveals regular rhythm rate. S1-S2 normal. No S3 or S4. No discernible murmur noted. Heart rate 116 bpm. Lungs reveal scattered rhonchi. Breath sounds equal. Saturations are in the mid 90s. Minimal crackles. No wheezes. Breath sounds diminished throughout. Abdomen soft bowel sounds are heard. No masses or tenderness. Extremities are intact. No cyanosis clubbing or edema. Skin is without rash or lesion. Neurologic examination is difficult to assess. - Labs CBC & Chem 7: 10/15/23 04:40 10/15/23 04:40 Labs: Abnormal Lab Results - Last 24 Hours (Table) 10/14/23 10/14/23 10/14/23 Range/Units 15:47 18:29 21:11 WBC 1.3 L* (3.8-10.6) k/uL RBC 2.34 L (4.30-5.90) m/uL Hgb 6.8 L* D (13.0-17.5) gm/dL Hct 21.7 L (39.0-53.0) % RDW 24.8 H (11.5-15.5) % Plt Count 15 L* (150-450) k/uL Neutrophils # 1.0 L (1.3-7.7) k/uL Lymphocytes # 0.1 L (1.0-4.8) k/uL ABG pH (7.35-7.45) ABG HCO3 (21-25) mmol/L Chloride (98-107) mmol/L Carbon Dioxide (22-30) mmol/L BUN (9-20) mg/dL Creatinine (0.66-1.25) mg/dL Glucose (74-99) mg/dL POC Glucose (mg/dL) 119 H (70-110) mg/dL Plasma Lactic Acid Pradip (0.7-2.0) mmol/L Calcium (8.4-10.2) mg/dL Crossmatch See Detail 10/14/23 10/14/23 10/15/23 Range/Units 22:45 23:40 00:04 WBC (3.8-10.6) k/uL RBC (4.30-5.90) m/uL Hgb (13.0-17.5) gm/dL Hct (39.0-53.0) % RDW (11.5-15.5) % Plt Count (150-450) k/uL Neutrophils # (1.3-7.7) k/uL Lymphocytes # (1.0-4.8) k/uL ABG pH 7.27 L (7.35-7.45) ABG HCO3 17 L (21-25) mmol/L Chloride (98-107) mmol/L Carbon Dioxide (22-30) mmol/L BUN (9-20) mg/dL Creatinine (0.66-1.25) mg/dL Glucose (74-99) mg/dL POC Glucose (mg/dL) 134 H (70-110) mg/dL Plasma Lactic Acid Pradip 2.2 H* (0.7-2.0) mmol/L Calcium (8.4-10.2) mg/dL Crossmatch 10/15/23 10/15/23 10/15/23 Range/Units 04:40 04:40 05:12 WBC 1.8 L (3.8-10.6) k/uL RBC 3.01 L (4.30-5.90) m/uL Hgb 9.0 L D (13.0-17.5) gm/dL Hct 28.7 L (39.0-53.0) % RDW 23.4 H (11.5-15.5) % Plt Count 22 L (150-450) k/uL Neutrophils # (1.3-7.7) k/uL Lymphocytes # 0.2 L (1.0-4.8) k/uL ABG pH (7.35-7.45) ABG HCO3 (21-25) mmol/L Chloride 115 H (98-107) mmol/L Carbon Dioxide 14 L (22-30) mmol/L BUN 57 H (9-20) mg/dL Creatinine 2.03 H (0.66-1.25) mg/dL Glucose 132 H (74-99) mg/dL POC Glucose (mg/dL) 156 H (70-110) mg/dL Plasma Lactic Acid Pradip (0.7-2.0) mmol/L Calcium 7.9 L (8.4-10.2) mg/dL Crossmatch 10/15/23 Range/Units 06:53 WBC (3.8-10.6) k/uL RBC (4.30-5.90) m/uL Hgb (13.0-17.5) gm/dL Hct (39.0-53.0) % RDW (11.5-15.5) % Plt Count (150-450) k/uL Neutrophils # (1.3-7.7) k/uL Lymphocytes # (1.0-4.8) k/uL ABG pH (7.35-7.45) ABG HCO3 (21-25) mmol/L Chloride (98-107) mmol/L Carbon Dioxide (22-30) mmol/L BUN (9-20) mg/dL Creatinine (0.66-1.25) mg/dL Glucose (74-99) mg/dL POC Glucose (mg/dL) 188 H (70-110) mg/dL Plasma Lactic Acid Pradip (0.7-2.0) mmol/L Calcium (8.4-10.2) mg/dL Crossmatch Microbiology - Last 24 Hours (Table) 10/12/23 15:20 Blood Culture - Preliminary Blood 10/12/23 15:35 Blood Culture - Preliminary Blood 10/13/23 08:35 Nasal Screen MRSA/MSSA - Final Nasal Swab Assessment and Plan Assessment: Acute hypoxemic respiratory failure, secondary to pneumonia, which may be community-acquired, or gram-negative in origin. Sepsis, secondary to pneumonia, with hypotension. History of orthostatic hypotension, with frequent falls. Acute kidney injury. Compression fracture, T4 and T2, related to fall. Rib fractures, related to fall. Chemotherapy-induced pancytopenia. History of benign essential hypertension. Paroxysmal atrial fibrillation. Type 2 diabetes mellitus. Metastatic non-small cell lung cancer, S/P chemotherapy, and radiation therapy. Plan: Plan dated October 15, 2023. The patient is seen today in room 262. The patient is quite agitated and restless. I had a long conversation with the patient's daughter, and son. They have decided to make the patient a DO NOT RESUSCITATE/DO NOT INTUBATE patient. I believe that to be correct. They were under the assumption that once those orders have been implemented, all treatment was stopped. I told him that was not the case. The patient will continue on appropriate medications, but should he have a cardiopulmonary arrest, the patient will not receive cardiopulmonary resuscitation, or intubation with mechanical ventilation. They were comfortable with that. They want him to be comfortable. Labs, x-rays, medications are reviewed. Prognosis is poor given his non-small cell lung cancer, which is metastatic. He also has significant pancytopenia, and renal failure. Time with Patient: Greater than 30
[2023-10-15] MEDS: VANCOMYCIN 1,250 MG in SODIUM CHLORIDE 0.9% 250 ML IVPB SCH (12:28)
[2023-10-15 18:05] LABS: Glucose,Whole Blood 187 mg/dL (70-110)
[2023-10-15] MEDS: GABAPENTIN 100 MG CAP PO SCH (20:23)
[2023-10-15 20:41] LABS: Glucose,Whole Blood 187 mg/dL (70-110)
--- NOTE | 2023-10-15 22:02 | P.PN ---
Subjective Progress Note Date: 10/15/23 Patient is evaluated today in intensive care unit family the bedside. He was placed on BiPAP 100% FiO2 due to increasing respiratory distress. He remains on IV cefepime for underlying bacterial pneumonia. He also remains in atrial fibrillation with heart rate is in the 140s. Patient did require vasopressor support currently on hold blood pressure is marginal in the 90s to low 100s systolic. Chest x-ray today reveals pulmonary fibrosis with bilateral superimposed infiltrate and a small left pleural effusion. Blood cultures negative so far. Labs today reveal white count of 1.8, hemoglobin 9.0, platelet count of 22, potassium 4.3, BUN 57, creatinine 2.03. Family changed code status to DNR. Review of Systems Unable to complete review of the systems patient is currently unresponsive on BiPAP All inpatient medications were reviewed and appropriate changes in these medications as dictated in the interval history and assessment and plan. PHYSICAL EXAMINATION: GENERAL: The patient is alert and oriented x1, Lethargic. not in any acute distress. Well developed, well nourished. HEENT: Pupils are round and equally reacting to light. EOMI. No scleral icterus. No conjunctival pallor. Normocephalic, atraumatic. No pharyngeal erythema. No thyromegaly. CARDIOVASCULAR: S1 and S2 present. No murmurs, rubs, or gallops. PULMONARY: Chest is clear to auscultation, no wheezing or crackles. ABDOMEN: Soft, nontender, nondistended, normoactive bowel sounds. No palpable organomegaly. MUSCULOSKELETAL: No joint swelling or deformity. EXTREMITIES: No cyanosis, clubbing, or pedal edema. NEUROLOGICAL: Gross neurological examination did not reveal any focal deficits. Diffuse weakness. SKIN: No rashes. Assessment and Plan -Fall and trauma likely due to orthostatic hypotension. -Community acquired pneumonia with sepsis currently maintained on IV cefepime. ID following closely. -Community-acquired pneumonia/immunocompromised host -Acute renal injury due to acute tubular necrosis and sepsis. Currently on Bicarb Gtt. Blood work will be repeated in the AM. -Pancytopenia; related to chemotherapy s/p 2 units of PRBC hemoglobin currently 9.0, platelet count of 15, transfuse for hgb <7 and plt count <10,000 or acute bleeding. DVT prophylaxis contraindicated at this time as plt count less than 50,000. -Rib fracture/compression fractures T2 and T4 continue with supportive care and pain management. Orthopedic evaluation no surgical candidate. -Hypertension hx currently hypotensive likely due to septic shock and patient currently maintained on vasopressor support. -Hyperlipidemia; -Diabetes mellitus type 2; patient takes metformin 500 mg twice daily and glimepiride 1 mg daily; will hold oral hypoglycemic agents; monitor Accu-Cheks before every meal and at bedtime with insulin sliding scale -Atrial fibrillation; with RVR, currently on metoprolol with soft blood pressures cardizem has been placed on hold, eliquis currently on hold due to the pancytopenia. -Esophageal cancer; outpatient oncology follow-up recently undergone chemoradiation. GI prophylaxis Do Not Resuscitate Do Not Intubate Greater than 35 minutes taken with patient, code status and plan of care discussed with extent with family at the bedside. The impression and plan of care has been dictated by Deb Aquino Nurse Practitioner as directed. Dr. Jessica MD I have performed a history and physical examination and medical decision making of this patient, discussed the same with the dictator, and agree with the dictators assessment and plan as written, documented as a scribe. Based on total visit time, I have performed more than 50% of this visit. Objective - Vital Signs Vital signs: Vital Signs Temp 97.0 F L 10/15/23 08:00 Pulse 140 H 10/15/23 09:00 Resp 25 H 10/15/23 09:00 BP 89/64 10/15/23 09:00 Pulse Ox 77 L 10/15/23 09:00 FiO2 100 10/15/23 09:00 Intake & Output 10/14/23 10/15/23 10/15/23 18:59 06:59 18:59 Intake Total 1420 2426.404 365 Output Total 200 245 55 Balance 1220 2181.404 310 Intake: IV 2100 365 0.9 NS 500 40 Cefepime 2 gm In Sodium 100 Chloride 0.9% 100 ml @ 25 mls/hr IVPB Q12HR [facility] Rx #:[id number] Dextrose 5% in Water 1, 450 225 000 ml @ 75 mls/hr IV . [id number] [facility] with Sodium Bicarb (1 Meq/ml) 150 ml Rx#:[id number] Sodium Chloride 0.9% 1, 150 000 ml @ 75 mls/hr IV . [id number] [facility] Rx#:[id number] Sodium Chloride 0.9% 1, 1000 000 ml @ 999 mls/hr IV . Q1H1M [facility] Rx#:[id number] Intake, IV Titration 675 16.404 Amount Cefepime 2 gm In Sodium 100 Chloride 0.9% 100 ml @ 25 mls/hr IVPB Q12HR [facility] Rx #:[id number] Norepinephrine 4 mg In 16.404 Sodium Chloride 0.9% 250 ml @ 0.03 MCG/KG/MIN 8. 814 mls/hr IV .Q24H [facility] Rx#:[id number] Sodium Chloride 0.9% 1, 75 000 ml @ 75 mls/hr IV . [id number] [facility] Rx#:[id number] Vancomycin 1,500 mg In 500 Sodium Chloride 0.9% 500 ml 500 ml @ 167 mls/hr IVPB Q24H [facility] Rx#: [id number] Oral 480 Blood Product 265 310 Platelet Pheresis Pas 265 Psoralen Unit [id number] Rc As-1 Unit 310 [id number] Output: Urine 200 245 55 Other: Voiding Method Urinal Indwelling Catheter - Labs CBC & Chem 7: 10/15/23 04:40 10/15/23 04:40 Labs: Abnormal Lab Results - Last 24 Hours (Table) 10/14/23 10/14/23 10/14/23 Range/Units 15:47 18:29 21:11 WBC 1.3 L* (3.8-10.6) k/uL RBC 2.34 L (4.30-5.90) m/uL Hgb 6.8 L* D (13.0-17.5) gm/dL Hct 21.7 L (39.0-53.0) % RDW 24.8 H (11.5-15.5) % Plt Count 15 L* (150-450) k/uL Neutrophils # 1.0 L (1.3-7.7) k/uL Lymphocytes # 0.1 L (1.0-4.8) k/uL ABG pH (7.35-7.45) ABG HCO3 (21-25) mmol/L Chloride (98-107) mmol/L Carbon Dioxide (22-30) mmol/L BUN (9-20) mg/dL Creatinine (0.66-1.25) mg/dL Glucose (74-99) mg/dL POC Glucose (mg/dL) 119 H (70-110) mg/dL Plasma Lactic Acid Pradip (0.7-2.0) mmol/L Calcium (8.4-10.2) mg/dL Crossmatch See Detail 10/14/23 10/14/23 10/15/23 Range/Units 22:45 23:40 00:04 WBC (3.8-10.6) k/uL RBC (4.30-5.90) m/uL Hgb (13.0-17.5) gm/dL Hct (39.0-53.0) % RDW (11.5-15.5) % Plt Count (150-450) k/uL Neutrophils # (1.3-7.7) k/uL Lymphocytes # (1.0-4.8) k/uL ABG pH 7.27 L (7.35-7.45) ABG HCO3 17 L (21-25) mmol/L Chloride (98-107) mmol/L Carbon Dioxide (22-30) mmol/L BUN (9-20) mg/dL Creatinine (0.66-1.25) mg/dL Glucose (74-99) mg/dL POC Glucose (mg/dL) 134 H (70-110) mg/dL Plasma Lactic Acid Pradip 2.2 H* (0.7-2.0) mmol/L Calcium (8.4-10.2) mg/dL Crossmatch 10/15/23 10/15/23 10/15/23 Range/Units 04:40 04:40 05:12 WBC 1.8 L (3.8-10.6) k/uL RBC 3.01 L (4.30-5.90) m/uL Hgb 9.0 L D (13.0-17.5) gm/dL Hct 28.7 L (39.0-53.0) % RDW 23.4 H (11.5-15.5) % Plt Count 22 L (150-450) k/uL Neutrophils # (1.3-7.7) k/uL Lymphocytes # 0.2 L (1.0-4.8) k/uL ABG pH (7.35-7.45) ABG HCO3 (21-25) mmol/L Chloride 115 H (98-107) mmol/L Carbon Dioxide 14 L (22-30) mmol/L BUN 57 H (9-20) mg/dL Creatinine 2.03 H (0.66-1.25) mg/dL Glucose 132 H (74-99) mg/dL POC Glucose (mg/dL) 156 H (70-110) mg/dL Plasma Lactic Acid Pradip (0.7-2.0) mmol/L Calcium 7.9 L (8.4-10.2) mg/dL Crossmatch 10/15/23 Range/Units 06:53 WBC (3.8-10.6) k/uL RBC (4.30-5.90) m/uL Hgb (13.0-17.5) gm/dL Hct (39.0-53.0) % RDW (11.5-15.5) % Plt Count (150-450) k/uL Neutrophils # (1.3-7.7) k/uL Lymphocytes # (1.0-4.8) k/uL ABG pH (7.35-7.45) ABG HCO3 (21-25) mmol/L Chloride (98-107) mmol/L Carbon Dioxide (22-30) mmol/L BUN (9-20) mg/dL Creatinine (0.66-1.25) mg/dL Glucose (74-99) mg/dL POC Glucose (mg/dL) 188 H (70-110) mg/dL Plasma Lactic Acid Pradip (0.7-2.0) mmol/L Calcium (8.4-10.2) mg/dL Crossmatch Microbiology - Last 24 Hours (Table) 10/12/23 15:20 Blood Culture - Preliminary Blood 10/12/23 15:35 Blood Culture - Preliminary Blood 10/13/23 08:35 Nasal Screen MRSA/MSSA - Final Nasal Swab Assessment and Plan Time with Patient: Greater than 30
[2023-10-16] MEDS: HALOPERIDOL LACTATE 5 MG/ML 1 ML VIAL IVP PRN (01:00)
[2023-10-16 06:20] LABS: Glucose,Whole Blood 202 mg/dL (70-110)
[2023-10-16 06:46] LABS: Anisocytosis Moderate; HCT 28.1 % (39.0-53.0); HGB 8.3 gm/dL (13.0-17.5); Hypochromasia Marked; MCH 28.9 pg (25.0-35.0); MCHC 29.8 g/dL (31.0-37.0); MCV 97.2 fL (80.0-100.0); Macrocytosis Moderate; Mean Platelet Volume 12.8; Platelet Count 23 k/uL (150-450); Poikilocytosis Slight; RBC 2.89 m/uL (4.30-5.90); RDW 23.4 % (11.5-15.5); WBC 2.3 k/uL (3.8-10.6)
[2023-10-16 06:56] LABS: African American GFR (CKD) 33 (>60 ml/min/1.73 sqM); Anion Gap 5 mmol/L; Blood Urea Nitrogen 64 mg/dL (9-20); Calcium 7.9 mg/dL (8.4-10.2); Carbon Dioxide 21 mmol/L (22-30); Chloride 114 mmol/L (98-107); Glucose 177 mg/dL (74-99); Non-African American GFR(CKD) 28 (>60 ml/min/1.73 sqM); Potassium 4.1 mmol/L (3.5-5.1); Sodium 140 mmol/L (137-145)
[2023-10-16 07:43] LABS: Lymphocytes # (M) 0.39 k/uL (1.0-4.8); Monocytes # (M) 0.12 k/uL (0-1.0); Neutrophils # (M) 1.79 k/uL (1.3-7.7); Neutrophils % (M) 78 %; Nucleated Red Blood Cells 0 /100 WBC (0-0); Total Cells Counted 100
[2023-10-16 07:44] LABS: Ovalocytes Present
[2023-10-16 07:45] LABS: Crenated RBC Present
--- NOTE | 2023-10-16 08:10 | XR ---
EXAMINATION TYPE: XR chest 1V portable DATE OF EXAM: 10/16/2023 COMPARISON: 10/15/2019 HISTORY: Cough TECHNIQUE: Single frontal view of the chest is obtained. FINDINGS: Postsurgical change overlying cervical spine. There is chronic appearing interstitial find ings with bilateral consolidation small effusion. Heart is enlarged. No pneumothorax. Left-sided PICC line is stable. Postsurgical change overlying the cervical spine. More nodular appearing density in the left lung noted. IMPRESSION: Bilateral infiltrates superimposed on a background COPD and pulmonary fibrosis is slight ly improved relative to prior exam. A nodular mass in the left lower lobe not excluded.
[2023-10-16] MEDS: FAMOTIDINE 20 MG/2 ML VIAL IV SCH (09:01)
[2023-10-16 09:53] VITALS: TEMP 96.5
--- NOTE | 2023-10-16 10:16 | P.PN ---
Subjective Progress Note Date: 10/16/23 Principal diagnosis: Respiratory failure. Acute community-acquired pneumonia This is a 77-year-old white male, very familiar to my service, on 06/07/2023, patient was diagnosed with poorly differentiated non-small cell lung cancer, and he was referred to oncology and radiation oncology, patient has been undergoing chemotherapy and radiation therapy. 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 Patient had chemotherapy a while ago, and radiation therapy last Sunday. Patient was seen in the ER in [place] mostly with recurrent falls, and he was found to have 2 rib fractures, compression fracture of T2 and T4, he was also noted to have pancytopenia and chest x-ray suggestive of pneumonia. Transferred to [facility], placed on vancomycin and Zosyn, patient was also given 3 L of IV fluids prior to transfer. Last night I was notified about this patient having low blood pressure, and may require placement on norepinephrine, hence I transferred the patient to the ICU. He was very briefly on norepinephrine, and this was discontinued, did not require any more patient is hemodynamically stable, and he does not seem to be in any distress.However his labs are worrisome, patient does have low WBC count of 1.6, hemoglobin of 7.2, basic metabolic profile is relatively normal however his BUN is 50 creatinine 1.59 considering his immunologic status, patient is now on vancomycin and cefepime, empirically, we suspect that the patient has pneumonia, sepsis, doubt septic shock Patient was reevaluated today on 10/14/2023, on 4 L nasal cannula, O2 saturation 94%, patient is noticing very minimal improvement compared to the last couple of days. Nonetheless continues to have shortness of breath, intermittent cough, no wheezing, cough is productive with whitish phlegm. Continues to have pancytopenia with WBC count of 2.3 platelets are 16 hemoglobin is 8.3. This is being addressed by oncology on the case. His basic metabolic profile is normal BUN is 59 creatinine 2.03, worsening compared to his admission creatinine patient is on vancomycin, he is also on cefepime, may have to consider stopping vancomycin if the cultures remain negative for MRSA Progress note dated October 15, 2026. 77-year-old male, admitted on October 12. The patient was admitted with multiple falls, confusion, and weakness. He remains on vancomycin and cefepime, and is receiving oxygen, 8 L, high flow. He is also getting dextrose with half- normal saline with 3 ampoules of sodium bicarbonate, at 75 cc an hour. In addition, the patient is getting saline at KVO. The patient was on norepinephrine, for a period of time, but is not on it currently. Laboratory data includes a white count of 1.8, hemoglobin 9, hematocrit 28.7, and platelet count 22,000. Sodium 140, potassium 4.2, chlorides 115, CO2 14, anion gap 11, BUN 57, creatinine 2.03. Glucose is 188. Calcium 7.9. Culture data is thus far negative. Chest x-ray shows diffuse bilateral infiltrates, which could relate to pulmonary fibrosis, cancer, or pneumonia. I was able to have a talk with the patient's daughter, and son, and they decided to make the patient a DO NOT RESUSCITATE. They realize, that we should be focusing primarily on reasonable treatments, but to do nothing that is extraordinary. This will include no CPR, and no intubation or mechanical ventilation. I think that is appropriate given his current situation clinically. Progress note dated October 16, 2023. 77-year-old male admitted on October 12. The patient was admitted with a diagn osis of multiple falls, confusion, and weakness. I had a long conversation with the patient's family yesterday, including the daughter and son. The patient is now a DO NOT RESUSCITATE patient. Currently, he was seen in room 262, in the intensive care unit. He continues on BiPAP, with settings of 12/6, and 50%. The patient is currently on cefepime. He is getting dextrose with half-normal saline with 3 ampoules of sodium bicarb and at 75 cc an hour. He is on norepinephrine at 2 mcg/min. He is getting saline at KVO. The patient is much less agitated today than he was yesterday. White count 2.3, hemoglobin 8.3, hematocrit 28.1, and platelet count 23,000. Sodium 140, potassium 4.1, chl orides 114, CO2 21, BUN 64, creatinine 2.18. Magnesium is 2.0. Microbiologic sampling is thus far negative. Chest x-ray shows bilateral infiltrates superimposed on a background of COPD, and pulmonary fibrosis. There is a nodular mass in the left lower lobe. Objective - Vital Signs Vital signs: Vital Signs Temp 96.5 F L 10/16/23 08:00 Pulse 117 H 10/16/23 10:00 Resp 16 10/16/23 10:00 BP 93/60 10/16/23 10:00 Pulse Ox 94 L 10/16/23 10:00 FiO2 60 10/16/23 09:00 Intake & Output 10/15/23 10/16/23 10/16/23 18:59 06:59 18:59 Intake Total 3509.017 2346.940 285 Output Total 195 125 50 Balance 7168.886 1901.940 235 Intake: IV 1220 1235 285 0.9 NS 220 260 60 Cefepime 2 gm In Sodium 100 Chloride 0.9% 100 ml @ 25 mls/hr IVPB Q12HR [facility] Rx #:[id number] Dextrose 5% in Water 1, 900 975 225 000 ml @ 75 mls/hr IV . [id number] [facility] with Sodium Bicarb (1 Meq/ml) 150 ml Rx#:[id number] Intake, IV Titration 49.065 54.940 Amount Norepinephrine 4 mg In 49.065 54.940 Sodium Chloride 0.9% 250 ml @ 0.03 MCG/KG/MIN 8. 814 mls/hr IV .Q24H [facility] Rx#:[id number] Output: Urine 195 125 50 Other: Voiding Method Indwelling Catheter Indwelling Catheter Indwelling Catheter - Exam Not restless, much less agitated today, currently on BiPAP. HEENT examination is grossly unremarkable. Neck supple. Full range of motion. No adenopathy thyromegaly or neck vein distention. Cardiovascular examination reveals regular rhythm rate. S1-S2 normal. No S3 or S4. No discernible murmur noted. Heart rate 117 bpm. Lungs reveal scattered rhonchi. Breath sounds equal. Saturations are 94% minimal crackles. No wheezes. Breath sounds diminished throughout. Abdomen soft bowel sounds are heard. No masses or tenderness. Extremities are intact. No cyanosis clubbing or edema. Skin is without rash or lesion. Neurologic examination is difficult to assess. - Labs CBC & Chem 7: 10/16/23 06:14 10/16/23 06:14 Labs: Abnormal Lab Results - Last 24 Hours (Table) 02/10/15/23 10/15/23 Range/Units 11:28 18:04 20:39 WBC (3.8-10.6) k/uL RBC (4.30-5.90) m/uL Hgb (13.0-17.5) gm/dL Hct (39.0-53.0) % MCHC (31.0-37.0) g/dL RDW (11.5-15.5) % Plt Count (150-450) k/uL Lymphocytes # (Manual) (1.0-4.8) k/uL Chloride (98-107) mmol/L Carbon Dioxide (22-30) mmol/L BUN (9-20) mg/dL Creatinine (0.66-1.25) mg/dL Glucose (74-99) mg/dL POC Glucose (mg/dL) 214 H 187 H 187 H (70-110) mg/dL Calcium (8.4-10.2) mg/dL 10/16/23 10/16/23 10/16/23 Range/Units 06:14 06:14 06:19 WBC 2.3 L (3.8-10.6) k/uL RBC 2.89 L (4.30-5.90) m/uL Hgb 8.3 L (13.0-17.5) gm/dL Hct 28.1 L (39.0-53.0) % MCHC 29.8 L (31.0-37.0) g/dL RDW 23.4 H (11.5-15.5) % Plt Count 23 L (150-450) k/uL Lymphocytes # (Manual) 0.39 L (1.0-4.8) k/uL Chloride 114 H (98-107) mmol/L Carbon Dioxide 21 L (22-30) mmol/L BUN 64 H (9-20) mg/dL Creatinine 2.18 H (0.66-1.25) mg/dL Glucose 177 H (74-99) mg/dL POC Glucose (mg/dL) 202 H (70-110) mg/dL Calcium 7.9 L (8.4-10.2) mg/dL Microbiology - Last 24 Hours (Table) 10/12/23 15:20 Blood Culture - Preliminary Blood 10/12/23 15:35 Blood Culture - Preliminary Blood Assessment and Plan Assessment: Acute hypoxemic respiratory failure, secondary to pneumonia, which may be community-acquired, or gram-negative in origin. Sepsis, secondary to pneumonia, with hypotension. History of orthostatic hypotension, with frequent falls. Acute kidney injury. Compression fracture, T4 and T2, related to fall. Rib fractures, related to fall. Chemotherapy-induced pancytopenia. History of benign essential hypertension. Paroxysmal atrial fibrillation. Type 2 diabetes mellitus. Metastatic non-small cell lung cancer, S/P chemotherapy, and radiation therapy. Plan: Plan dated October 15, 2023. The patient is seen today in room 262. The patient is quite agitated and restless. I had a long conversation with the patient's daughter, and son. They have decided to make the patient a DO NOT RESUSCITATE/DO NOT INTUBATE patient. I believe that to be correct. They were under the assumption that once those or ders have been implemented, all treatment was stopped. I told him that was not the case. The patient will continue on appropriate medications, but should he have a cardiopulmonary arrest, the patient will not receive cardiopulmonary resuscitation, or intubation with mechanical ventilation. They were comfortable with that. They want him to be comfortable. Labs, x-rays, medications are reviewed. Prognosis is poor given his non-small cell lung cancer, which is metastatic. He also has significant pancytopenia, and renal failure. Plan dated October 16, 2023. The patient is seen today in the intensive care unit, room 262. After conversation with the daughter and son, with the in the room, the patient was made a DO NOT RESUSCITATE/DO NOT INTUBATE. They do want us to do everything medically, short of her rope measures. The patient continues on BiPAP, with settings of 12/6, 50%. He also continues on cefepime. The patient is getting dextrose with half-normal saline and 3 ampoules of sodium bicarb at 75 cc an hour. The patient is also getting norepinephrine at 2 mcg/min. He is getting saline at KVO. Labs, x-rays, and medications are reviewed. Additional recommendations and suggestions are forthcoming. We will continue to follow the patient, and make recommendations along the way. Time with Patient: Greater than 30
[2023-10-16 10:29] VITALS: RESP 16
[2023-10-16 12:12] VITALS: BP 99/62; PULSE 116
--- NOTE | 2023-10-16 14:40 | P.DS ---
Providers Date of admission: 10/12/23 15:01 Attending physician: Trever Maldonado Consults: 10/12/23 20:09 Consult Physician Routine Consulting Provider: Elle Pérez Consult Reason/Comments: Community-acquired pneumonia in immunocompromised host Do you want consulting provider notified?: Yes, Notify in am 10/13/23 01:01 Consult Physician Routine Consulting Provider: Esther Rouse Consult Reason/Comments: Low BP/ ICU managment Do you want consulting provider notified?: Yes 10/14/23 06:57 Consult Physician Routine Consulting Provider: Maged Menjivar Consult Reason/Comments: compression fractures Do you want consulting provider notified?: Yes, Notify in am 10/16/23 07:06 Consult Physician Routine Consulting Provider: Reva Leggett Consult Reason/Comments: BRENT Do you want consulting provider notified?: Yes Primary care physician: Orlando Barnes MD Hospital Course: Final Diagnosis -Fall and trauma likely due to orthostatic hypotension. -Community acquired pneumonia with sepsis currently maintained on IV cefepime. ID following closely. -Community-acquired pneumonia/immunocompromised host -Acute renal injury due to acute tubular necrosis and sepsis. Currently on Bicarb Gtt -Pancytopenia; related to chemotherapy s/p 2 units of PRBC hemoglobin currently 9.0, platelet count of 15, transfuse for hgb <7 and plt count <10,000 or acute bleeding. DVT prophylaxis contraindicated at this time as plt count less than 50,000. -Rib fracture/compression fractures T2 and T4 continue with supportive care and pain management. Orthopedic evaluation no surgical candidate. -Hypertension hx currently hypotensive likely due to septic shock and patient currently maintained on vasopressor support. -Hyperlipidemia; -Diabetes mellitus type 2; patient takes metformin 500 mg twice daily and gli mepiride 1 mg daily; will hold oral hypoglycemic agents; monitor Accu-Cheks before every meal and at bedtime with insulin sliding scale -Atrial fibrillation; with RVR, currently on metoprolol with soft blood pressures cardizem has been placed on hold, eliquis currently on hold due to the pancytopenia. -Esophageal cancer; outpatient oncology follow-up recently undergone chemoradiation. GI prophylaxis Do Not Resuscitate Do Not Intubate Patient will be transitioned to [facility]. Preliminary cause of , pneumonia and sepsis, non small cell lung cancer Hospital Course 77-year-old male who presents to the emergency department from [facility]. For sepsis. Patient comes in with a history of esophageal cancer, hypertension, hyperlipidemia, hypothyroidism, diabetes mellitus, COPD and h istory of atrial fibrillation. Patient also has diagnosis of non-small cell lung cancer. He underwent chemotherapy and most recently received radiation last sunday. Patient showed up to the ER because of weakness and fell they diagnosed with 2 rib fractures and a compression fracture T2 and T4. Patient also had pancytopenia and had pneumonia and they considered him septic patient was started on vancomycin and zosyn. Patient's pressure was a little soft while they were at [place] they gave him 3 L of fluid by the time he arrived at our ER. Patient was pancytopenic on admission, Blood work repeated in ED reveals a WBC of 0.8, hemoglobin of 11.6 and platelet count of 31, creatinine of 1.36. he was admitted to the intensive care unit and was placed on pressor support. Patients eliquis has been placed on hold as he became anemia and required blood transfusion. Clinically he declined. Patient now on IV cefepime, IV vancomycin, ID following closely. He had a chest xray showing diffuse bilateral infiltrates, possible pulmonary fibrosis, cancer or pneumonia. Patient was made a do not resuscitate. He has been placed on bipap 100% FiO2 and he is minimally responsive. family at the bedside discussed comfort care, hospice has been consulted and patient has been transitioned to [facility]. Thank you for allowing us to participate in the care of this patient. The impression and plan of care has been dictated by Deb Aquino, Nurse Practitioner as directed. Dr. Jessica MD I have performed a history and physical examination and medical decision making of this patient, discussed the same with the dictator, and agree with the dictators assessment and plan as written, documented as a scribe. Based on total visit time, I have performed more than 50% of this visit. Plan - Discharge Summary Discharge Rx Participant: No New Discharge Prescriptions: No Action Aspirin 81 mg PO DAILY 90 Days #90 tab HYDROcodone/APAP 5-325MG [[place] 5-325] 1 tab PO QID PRN PRN Reason: Pain metFORMIN HCL [Glucophage] 500 mg PO BID Citalopram Hydrobromide [Citalopram HBr] 10 mg PO DAILY Ondansetron [Zofran] 4 mg PO Q8H PRN PRN Reason: Nausea And Vomiting Potassium Chloride ER [K-Dur 20] 20 meq PO DAILY Omeprazole [PriLOSEC] 40 mg PO DAILY Furosemide [Lasix] 40 mg PO BID Metoprolol Tartrate [Lopressor] 12.5 mg PO BID Gabapentin 300 mg PO BID Famotidine [Pepcid] 20 mg PO DAILY Glimepiride 1 mg PO DAILY Zolpidem Tartrate [Ambien] 5 mg PO HS Apixaban [Eliquis] 5 mg PO BID tab dilTIAZem HCL [Cardizem CD] 240 mg PO DAILY Atorvastatin [Lipitor] 40 mg PO HS Discharge Medication List Metoprolol Tartrate [Lopressor] 12.5 mg PO BID 03/16/23 [History] Aspirin 81 mg PO DAILY 90 Days #90 tab 03/19/23 [Rx] Famotidine [Pepcid] 20 mg PO DAILY 06/01/23 [History] Gabapentin 300 mg PO BID 06/01/23 [History] HYDROcodone/APAP 5-325MG [[place] 5-325] 1 tab PO QID PRN 07/31/23 [History] metFORMIN HCL [Glucophage] 500 mg PO BID 07/31/23 [History] Citalopram Hydrobromide [Citalopram HBr] 10 mg PO DAILY 08/13/23 [History] Glimepiride 1 mg PO DAILY 08/13/23 [History] Ondansetron [Zofran] 4 mg PO Q8H PRN 08/13/23 [History] Zolpidem Tartrate [Ambien] 5 mg PO HS 08/30/23 [History] Apixaban [Eliquis] 5 mg PO BID tab 09/01/23 [Rx] Atorvastatin [Lipitor] 40 mg PO HS 10/12/23 [History] Furosemide [Lasix] 40 mg PO BID 10/12/23 [History] Omeprazole [PriLOSEC] 40 mg PO DAILY 10/12/23 [History] Potassium Chloride ER [K-Dur 20] 20 meq PO DAILY 10/12/23 [History] dilTIAZem HCL [Cardizem CD] 240 mg PO DAILY 10/12/23 [History] Follow up Appointment(s)/Referral(s): Yisel Escobar NPC [Nurse Practitioner] - As Needed Orlando Barnes MD [Primary Care Provider] - 1-2 days Discharge Disposition: HOME WITH HOSPICE
--- NOTE | 2023-10-16 18:27 | P.NPCON ---
History of Present Illness - Reason for Consult acute renal failure - History of Present Illness Patient is a 77-year-old male with history of metastatic non-small cell lung cancer. Patient was transferred to the ICU for worsening shortness of breath. Currently maintained on BiPAP. Serum creatinine increased from 1.3 on admission to 2.1 today. Urine output at about 15 to 20 cc an hour. Patient was hypotensive and is currently maintained on Levophed. Family is present at bedside and they are considering comfort care/hospice care. Review of Systems As per HPI Past Medical History Past Medical History: Atrial Fibrillation, Cancer, COPD, Diabetes Mellitus, GERD/Reflux, Hyperlipidemia, Hypertension, Pneumonia, Thyroid Disorder Additional Past Medical History / Comment(s): hx foot swelling and drainage left healing, taking lasix for this, was very painful, , ultrasound done on 05/31/23 lung cancer 06/18, chemo and radiation. diarrhea since chemo last sunday History of Any Multi-Drug Resistant Organisms: None Reported Past Surgical History: Heart Catheterization, Orthopedic Surgery Additional Past Surgical History / Comment(s): back surg, neck surg, right nipple removed due to pain benign, nerve damage to left side, skin cancer removed ear and face Past Anesthesia/Blood Transfusion Reactions: No Reported Reaction Additional Past Anesthesia/Blood Transfusion Reaction / Comment(s): no blood transfusion Past Psychological History: No Psychological Hx Reported Additional Psychological History / Comment(s): taking celexa since lung dx Smoking Status: Former smoker Past Alcohol Use History: None Reported Additional Past Alcohol Use History / Comment(s): 2 cigars/day at least per . stopped smoking cigarettes 3-4 yrs ago Past Drug Use History: None Reported - Past Family History Mother Family Medical History: Cancer, CVA/TIA Additional Family Medical History / Comment(s): skin Father Family Medical History: Myocardial Infarction (MS) Additional Family Medical History / Comment(s): chf Medications and Allergies Home Medications Medication Instructions Recorded Confirmed Type Metoprolol Tartrate [Lopressor] 12.5 mg PO BID 03/16/23 10/16/23 History Aspirin 81 mg PO DAILY 90 Days #90 tab 03/19/23 10/16/23 Rx Famotidine [Pepcid] 20 mg PO DAILY 06/01/23 10/16/23 History Gabapentin 300 mg PO BID 06/01/23 10/16/23 History HYDROcodone/APAP 5-325MG [[place] 1 tab PO QID PRN 07/31/23 10/16/23 History 5-325] metFORMIN HCL [Glucophage] 500 mg PO BID 07/31/23 10/16/23 History Citalopram Hydrobromide 10 mg PO DAILY 08/13/23 10/16/23 History [Citalopram HBr] Glimepiride 1 mg PO DAILY 08/13/23 10/16/23 History Ondansetron [Zofran] 4 mg PO Q8H PRN 08/13/23 10/16/23 History Zolpidem Tartrate [Ambien] 5 mg PO HS 08/30/23 10/16/23 History Apixaban [Eliquis] 5 mg PO BID tab 09/01/23 10/16/23 Rx Atorvastatin [Lipitor] 40 mg PO HS 10/12/23 10/16/23 History Furosemide [Lasix] 40 mg PO BID 10/12/23 10/16/23 History Omeprazole [PriLOSEC] 40 mg PO DAILY 10/12/23 10/16/23 History Potassium Chloride ER [K-Dur 20] 20 meq PO DAILY 10/12/23 10/16/23 History dilTIAZem HCL [Cardizem CD] 240 mg PO DAILY 10/12/23 10/16/23 History Allergies Allergy/AdvReac Type Severity Reaction Status Date / Time cephalexin [[facility]] Allergy Mild Rash/Hives Verified 10/12/23 11:55 codeine Allergy Mild Rash/Hives Verified 10/12/23 11:55 Physical Exam Vitals: Vital Signs Temp Pulse Resp BP Pulse Ox FiO2 10/16/23 11:39 60 10/16/23 11:30 116 H 16 99/62 93 L 10/16/23 11:15 117 H 20 89/60 88 L 10/16/23 11:00 137 H 12 72/59 93 L 10/16/23 10:45 123 H 20 89 L 10/16/23 10:30 125 H 16 74/61 95 10/16/23 10:15 134 H 16 101/67 90 L 10/16/23 10:00 117 H 16 93/60 94 L 10/16/23 09:40 60 10/16/23 09:00 130 H 19 94/68 86 L 60 10/16/23 08:00 96.5 F L 113 H 22 103/75 99 50 10/16/23 07:58 60 10/16/23 07:00 114 H 27 H 88/73 95 10/16/23 06:00 144 H 12 74/59 94 L 10/16/23 05:00 107 H 16 85/73 96 10/16/23 04:00 98.1 F 107 H 14 96/74 100 10/16/23 03:48 60 10/16/23 03:00 101 H 13 107/70 99 10/16/23 02:00 104 H 12 85/65 10/16/23 01:00 141 H 16 115/99 97 10/16/23 00:00 98.7 F 98 13 92/65 100 10/15/23 23:37 109 H 13 104/67 100 60 10/15/23 23:00 112 H 14 75/62 100 10/15/23 22:00 126 H 12 93/63 100 10/15/23 21:00 112 H 12 94/61 100 10/15/23 20:09 60 10/15/23 20:00 98.9 F 117 H 13 79/67 99 10/15/23 19:00 137 H 14 107/88 99 10/15/23 18:45 135 H 27 H 97/70 96 10/15/23 18:30 120 H 14 118/70 98 Intake and Output 10/16/23 10/16/23 10/16/23 06:59 14:59 22:59 Intake Total 855 285 Output Total 90 50 Balance 765 235 Intake: IV 855 285 0.9 NS 180 60 Dextrose 5% in Water 1, 675 225 000 ml @ 75 mls/hr IV . [id number] ROSE MARIE with Sodium Bicarb (1 Meq/ml) 150 ml Rx#:[id number] Output: Urine 90 50 Other: Voiding Method Indwelling Catheter Indwelling Catheter Weight 77.111 kg Patient is on BiPAP. He is barely arousable. Examination of the heart S1 and S2 Examination of the lungs decreased breath sounds at the bases Abdomen is soft nontender Examination of lower extremities shows trace edema bilaterally Results - Lab Results Most recent lab results ABG pH 7.27 (7.35-7.45) L 10/14/23 22:45 ABG pCO2 38 mmHg (35-45) 10/14/23 22:45 ABG pO2 99 mmHg (83-108) 10/14/23 22:45 ABG HCO3 17 mmol/L (21-25) L 10/14/23 22:45 ABG O2 Saturation 97.0 % (94-97) 10/14/23 22:45 Calcium 7.9 mg/dL (8.4-10.2) L 10/16/23 06:14 Phosphorus 5.2 mg/dL (2.5-4.5) H 10/13/23 04:12 Magnesium 2.0 mg/dL (1.6-2.3) 10/16/23 06:14 10/16/23 06:14 10/16/23 06:14 Assessment and Plan Assessment: 1. Acute kidney injury ATN secondary to hypotension and sepsis 2. Acute hypoxic respiratory failure secondary to pneumonia 3. Metastatic lung cancer 4. Compression fractures 5. [place] metabolic acidosis currently maintained on bicarb drip Plan: Continue with bicarb drip Agree with plans for possible hospice care/comfort care measures Patient is not a candidate for renal replacement therapy if renal function continues to worsen.
--- NOTE | 2023-10-17 13:14 | P.PN ---
Subjective Progress Note Date: 10/14/23 77-year-old male who presents to the emergency department from [facility]. Patient comes in with a history of esophageal cancer, hypertension, hyperlipidemia, hypothyroidism, diabetes mellitus, COPD and history of atrial fibrillation. Patient had chemotherapy a while ago and radiation this past Sunday. Patient showed up to the ER because of weakness and fell they diagnosed with 2 rib fractures and a compression fracture T2 and T4. Patient also had pancytopenia and had pneumonia and they considered him septic so I started him on Vanco and Zosyn and sent him down here. Patient's pressure was a little soft while they were at [place] they gave him 3 L of fluid by the time he arriv ed at our ER. Patient himself states he feels fine he is not complaining of any pain and if always the same to him he would just assume go home. Blood work repeated in ED reveals a WBC of 0.8, hemoglobin of 11.6 and platelet count of 31, creatinine of 1.36 --- Patient transferred to ICU tonight for soft blood pressure; patient was on norepinephrine briefly which was discontinued; patient remained hemodynamically stable and is transferred out of ICU 10/14/2023 Patient is seen and evaluated in room at bedside; on 4 L nasal cannula, O2 saturation 94%, patient continues to have shortness of breath, intermittent cough, no wheezing, cough is productive with whitish phlegm. Labbs reveal WBC count of 2.3 platelets are 16 hemoglobin is 8.3; metabolic profile is normal BUN is 59 creatinine 2.03, worsening compared to his admission creatinine patient is on vancomycin, he is also on cefepime, may have to consider stopping vancomycin if the cultures remain negative for MRSA Compression fractures T2, T4; orthopedic surgery is consulted Objective - Vital Signs Vital signs: Vital Signs Temp 97.4 F L 10/13/23 23:06 Pulse 89 10/13/23 23:06 Resp 20 10/13/23 23:06 BP 86/55 10/13/23 23:06 Pulse Ox 90 L 10/13/23 23:06 FiO2 Intake & Output 10/13/23 10/13/23 10/14/23 06:59 18:59 06:59 Intake Total 278.627 7578.938 Output Total 800 200 Balance -240.831 3273.938 Weight 77.111 kg 77.111 kg Intake: IV 100 0.9 NS 100 Intake, IV Titration 12.046 1202.938 Amount Cefepime 2 gm In Sodium 100 Chloride 0.9% 100 ml @ 25 mls/hr IVPB Q8HR ROSE MARIE Rx# :[id number] Magnesium Sulfate-D5w Pmx 400 1 gm In Dextrose/Water 1 100ml.bag @ 100 mls/hr IVPB Q1H ROSE MARIE Rx#: [id number] Norepinephrine 4 mg In 12.046 2.938 Sodium Chloride 0.9% 250 ml @ 0.03 MCG/KG/MIN 8. 814 mls/hr IV .Q24H ROSE MARIE Rx#:[id number] Potassium Chloride 20 meq 200 In Water For Injection 1 100ml.bag @ 50 mls/hr IVPB Q2H ROSE MARIE Rx#: [id number] Vancomycin 1,500 mg In 500 Sodium Chloride 0.9% 500 ml 500 ml @ 167 mls/hr IVPB Q24H ROSE MARIE Rx#: [id number] Oral 100 590 Output: Urine 400 200 Post Void Residual 400 Other: # Voids 0 - Exam - Constitutional General appearance: Present: average body habitus, cooperative, no acute distress - EENT Eyes: Present: anicteric sclerae, EOMI, PERRLA, normal appearance ENT: Present: hearing grossly normal, normal oropharynx Ears: bilateral: normal - Neck Neck: Present: normal ROM. Absent: lymphadenopathy, rigidity, thyromegaly Carotids: negative: bruit present Thyroid: bilateral: normal size, negative: enlarged, nodule - Respiratory Respiratory: bilateral: CTA, negative: rales, rhonchi, wheezing - Cardiovascular Rhythm: regular Heart sounds: normal: S1, S2 Abnormal Heart Sounds: Absent: systolic murmur, diastolic murmur - Gastrointestinal General gastrointestinal: Present: normal bowel sounds, soft. Absent: distended, organomegaly, tenderness - Genitourinary Genitourinary Comment(s): deferred - Integumentary Integumentary: Present: normal turgor. Absent: jaundiced, rash, ulcer - Neurologic Neurologic: Present: CNII-XII intact. Absent: focal deficits - Musculoskeletal Musculoskeletal: Present: gait normal, strength equal bilaterally - Psychiatric Psychiatric: Present: A&O x's 3, appropriate affect, intact judgment & insight - Labs CBC & Chem 7: 10/16/23 06:14 10/16/23 06:14 Labs: Abnormal Lab Results - Last 24 Hours (Table) 10/13/23 10/13/23 10/13/23 Range/Units 00:56 03:05 04:04 WBC (3.8-10.6) k/uL RBC (4.30-5.90) m/uL Hgb (13.0-17.5) gm/dL Hct (39.0-53.0) % RDW (11.5-15.5) % Plt Count (150-450) k/uL Lymphocytes # (Manual) (1.0-4.8) k/uL Metamyelocytes # (Man) (0) k/uL Nucleated RBCs (0-0) /100 WBC Potassium (3.5-5.1) mmol/L Chloride (98-107) mmol/L Carbon Dioxide (22-30) mmol/L BUN (9-20) mg/dL Creatinine (0.66-1.25) mg/dL Glucose (74-99) mg/dL POC Glucose (mg/dL) 158 H 132 H (70-110) mg/dL Calcium (8.4-10.2) mg/dL Phosphorus (2.5-4.5) mg/dL Magnesium (1.6-2.3) mg/dL C-Reactive Protein (<1.0) mg/dL Total Protein (6.3-8.2) g/dL Albumin (3.5-5.0) g/dL Procalcitonin 2.03 H (0.02-0.09) ng/mL 10/13/23 10/13/23 10/13/23 Range/Units 04:12 04:12 07:14 WBC 1.6 L (3.8-10.6) k/uL RBC 2.51 L (4.30-5.90) m/uL Hgb 7.2 L D (13.0-17.5) gm/dL Hct 23.1 L (39.0-53.0) % RDW 24.5 H (11.5-15.5) % Plt Count 38 L (150-450) k/uL Lymphocytes # (Manual) 0.08 L (1.0-4.8) k/uL Metamyelocytes # (Man) 0.02 H (0) k/uL Nucleated RBCs 2 H (0-0) /100 WBC Potassium 3.4 L (3.5-5.1) mmol/L Chloride 112 H (98-107) mmol/L Carbon Dioxide 18 L (22-30) mmol/L BUN 50 H (9-20) mg/dL Creatinine 1.59 H (0.66-1.25) mg/dL Glucose 112 H (74-99) mg/dL POC Glucose (mg/dL) 125 H (70-110) mg/dL Calcium 7.2 L (8.4-10.2) mg/dL Phosphorus 5.2 H (2.5-4.5) mg/dL Magnesium 1.2 L (1.6-2.3) mg/dL C-Reactive Protein 41.0 H (<1.0) mg/dL Total Protein 4.6 L (6.3-8.2) g/dL Albumin 2.3 L (3.5-5.0) g/dL Procalcitonin (0.02-0.09) ng/mL 10/13/23 10/13/23 10/13/23 Range/Units 11:05 16:28 19:52 WBC (3.8-10.6) k/uL RBC (4.30-5.90) m/uL Hgb (13.0-17.5) gm/dL Hct (39.0-53.0) % RDW (11.5-15.5) % Plt Count (150-450) k/uL Lymphocytes # (Manual) (1.0-4.8) k/uL Metamyelocytes # (Man) (0) k/uL Nucleated RBCs (0-0) /100 WBC Potassium (3.5-5.1) mmol/L Chloride (98-107) mmol/L Carbon Dioxide (22-30) mmol/L BUN (9-20) mg/dL Creatinine (0.66-1.25) mg/dL Glucose (74-99) mg/dL POC Glucose (mg/dL) 145 H 148 H 143 H (70-110) mg/dL Calcium (8.4-10.2) mg/dL Phosphorus (2.5-4.5) mg/dL Magnesium (1.6-2.3) mg/dL C-Reactive Protein (<1.0) mg/dL Total Protein (6.3-8.2) g/dL Albumin (3.5-5.0) g/dL Procalcitonin (0.02-0.09) ng/mL Microbiology - Last 24 Hours (Table) 10/12/23 15:20 Blood Culture - Preliminary Blood 10/12/23 15:35 Blood Culture - Preliminary Blood Assessment and Plan Assessment: 1. Sepsis; related to pneumonia; patient received fluid resuscitation in outside ER 2. Community-acquired pneumonia/immunocompromised host -- Patient has been placed on IV vancomycin and Zosyn; currently on IV cefepime and vancomycin; received Solu-Cortef 100 mg IV x 1 -- Will monitor CBC, CRP and procalcitonin; blood cultures and sputum cultures obtained 3. Acute renal injury; patient received IV fluid resuscitation in form of normal saline; monitor strict GAIL's, daily weights, renal function electrolytes; avoid nephrotoxins and hypotension 4. Pancytopenia; related to chemotherapy 5. Rib fracture/compression fractures T2 and T4 6. Hypertension; Cardizem CD2 40 mg daily; metoprolol 12.5 mg twice daily; Cardizem has been placed on hold for softer blood pressures; we will continue with metoprolol with parameters for atrial fibrillation 7. Hyperlipidemia; Lipitor 40 mg nightly 8. Diabetes mellitus type 2; patient takes metformin 500 mg twice daily and glimepiride 1 mg daily; will hold oral hypoglycemic agents; monitor Accu-Cheks before every meal and at bedtime with insulin sliding scale 9. Atrial fibrillation; patient is rate controlled on metoprolol and Cardizem; anticoagulated with Eliquis 5 mg twice daily 10. Esophageal cancer; outpatient oncology follow-up DVT prophylaxis; SCDs/Eliquis CODE STATUS; full code
--- NOTE | 2023-10-18 16:19 | CDI ---
Documentation Clarification Form Date: 10/18/2023 04:00:43 PM From: Amelia Ballard Phone: Admit Date: 10/12/2023 03:01:00 PM Patient Name: Kali Carlson Visit Number: [id number] Discharge Date: 10/16/2023 11:47:00 AM ATTENTION: The Clinical Documentation Specialists (CDI) and [facility] Coding Staff appreciate your assistance in clarifying documentation. Please respond to the clarification below the line at the bottom and electronically sign. The CDI & [facility] Coding staff will review the response and follow-up if needed. Please note: Queries are made part of the Legal Health Record. If you have any questions, please contact the author of this message via ITS. Dr. Klever Lopez Your patient has radiology results: PICCline per CXR 10/13 and Rt PICCline per 10/14 CXR. Please clarify if there is an additional procedure related to this result. History/Risk Factors: 77yo M, sepsis w shock, Chemo pancytopenia, gram- PNA, AHRF, Esophageal & lung Cx, ATN, HTN, PAF Clinical indicators: Stable Lt PICCline Rt PICCline with distal tip at the CA junction. Treatment: Procedure Note not in chart Is there an additional procedure related to the above radiology result? [ ] Lt PICCline POA [ ] Lt PICCline inserted this visit (please provide Procedure Note) [ ] Rt PICCline with distal tip at the CA junction POA [ ] Rt PICCline with distal tip at the CA junction inserted this visit (please provide Procedure Note) [ ] Result is not clinically significant (no additional Procedure) [ ] Other, please specify [ x ] Unable to determine (Template Last Reviewed: September 2020) MTDD
== END 2023-10-16 11:47 | disposition hospice, inpatient (51) | DRG 871 ==
LOC: EC 10:32 → 3SCARD 15:01 → 2SICU 10-13 01:56 → 3SCARD 10-13 13:09 → 2SICU 10-14 20:01
PROVIDERS: ADMIT Hospitalist; ATTEND Hospitalist
PROC: 3E033XZ Introduction of Vasopressor into Peripheral Vein, Percutaneous Approach (ICD-10-PCS; 2023-10-13)
PROC: 5A09357 Assistance with Respiratory Ventilation, Less than 24 Consecutive Hours, Continuous Positive Airway Pressure (ICD-10-PCS; principal; 2023-10-15)
DX: A41.9 Sepsis, unspecified organism (principal); D61.810 Antineoplastic chemotherapy induced pancytopenia; J96.01 Acute respiratory failure with hypoxia; N17.0 Acute kidney failure with tubular necrosis; R65.21 Severe sepsis with septic shock; J15.69 Pneumonia due to other Gram-negative bacteria; E87.20 Acidosis, unspecified; D84.81 Immunodeficiency due to conditions classified elsewhere; C79.9 Secondary malignant neoplasm of unspecified site; M48.54XA Collapsed vertebra, not elsewhere classified, thoracic region, initial encounter for fracture; C15.9 Malignant neoplasm of esophagus, unspecified; C34.90 Malignant neoplasm of unspecified part of unspecified bronchus or lung; J84.10 Pulmonary fibrosis, unspecified; E11.9 Type 2 diabetes mellitus without complications; I48.0 Paroxysmal atrial fibrillation; I10 Essential (primary) hypertension; E03.9 Hypothyroidism, unspecified; R29.6 Repeated falls; I95.1 Orthostatic hypotension; T45.1X5A Adverse effect of antineoplastic and immunosuppressive drugs, initial encounter; W19.XXXA Unspecified fall, initial encounter; G89.29 Other chronic pain; Z66 Do not resuscitate; Z51.5 Encounter for palliative care; S22.41XD Multiple fractures of ribs, right side, subsequent encounter for fracture with routine healing; M54.9 Dorsalgia, unspecified; E78.5 Hyperlipidemia, unspecified; Z87.891 Personal history of nicotine dependence; Z79.01 Long term (current) use of anticoagulants; Z88.1 Allergy status to other antibiotic agents; Z79.82 Long term (current) use of aspirin; Z79.899 Other long term (current) drug therapy; Z79.84 Long term (current) use of oral hypoglycemic drugs; Z92.3 Personal history of irradiation; Z92.21 Personal history of antineoplastic chemotherapy; Z85.828 Personal history of other malignant neoplasm of skin; Z88.5 Allergy status to narcotic agent; Z91.81 History of falling
CPT/HCPCS: 36415; 36600; 71045; 71046; 80048; 80053; 80202; 82565; 82805; 83605; 83735; 84100; 84145; 85025; 86140; 86850; 86900; 86901; 86920; 87040; 87070; 93005; 94660; 96361; 96365; 96366; 96375; 99285

== ENCOUNTER 2023-10-16 11:42 | Inpatient (IN) | payer MEDICAID ==
[2023-10-16] MEDS ORDERED: ONDANSETRON 4 MG/2 ML VIAL IVP PRN (11:43)
[2023-10-16] MEDS ORDERED: DRY MOUTH SPRAY 44.3 SPRAY/44.3 ML SPRAY MUCOUS MEM PRN (11:43)
[2023-10-16] MEDS ORDERED: MORPHINE SULFATE 4 MG/ML SYRINGE IV PRN (11:43)
[2023-10-16] MEDS ORDERED: GLYCOPYRROLATE 0.2 MG/ML 2 ML VIAL IVP PRN (11:43)
[2023-10-16] MEDS ORDERED: ACETAMINOPHEN SUPPOSITORY 650 MG SUPP RECTAL PRN (11:43)
[2023-10-16] MEDS ORDERED: HALOPERIDOL LACTATE 5 MG/ML 1 ML VIAL IM PRN (11:43)
[2023-10-16] MEDS ORDERED: ATROPINE OPHTH SOLN 1% 5ML BTL SUBLINGUAL PRN (11:43)
[2023-10-16] MEDS: MORPHINE SULFATE (100 MG/2 ML) 100 MG in SODIUM CHLORIDE 0.9% 100 ML IV SCH (12:20)
[2023-10-16] MEDS: SCOPOLAMINE 1 MG/72 HR PATCH TRANSDERM SCH (12:22)
[2023-10-16 13:46] VITALS: BP 85/72; PULSE 123; RESP 14
[2023-10-16] MEDS: LORazepam 2 MG/ML INJ IV PRN (14:03)
--- NOTE | 2023-10-16 14:37 | P.HPIM ---
History of Present Illness H&P Date: 10/16/23 77-year-old male who presents to the emergency department from [facility]. Patient comes in with a history of esophageal cancer, hypertension, hyperlipidemia, hypothyroidism, diabetes mellitus, COPD and history of atrial fibrillation. Patient also has diagnosis of non-small cell lung cancer. He underwent chemotherapy and most recently received radiation last sunday. Patient showed up to the ER because of weakness and fell they diagnosed with 2 rib fractures and a compression fracture T2 and T4. Patient also had pancytopenia and had pneumonia and they considered him septic patient was started on vancomycin and zosyn. Patient's pressure was a little soft while they were at [place] they gave him 3 L of fluid by the time he arrived at our ER. Patient was pancytopenic on admission, Blood work repeated in ED reveals a WBC of 0.8, hemoglobin of 11.6 and platelet count of 31, creatinine of 1.36. he was admitted to the intensive care unit and was placed on pressor support. Patients eliquis has been placed on hold as he became anemia and required blood transfusion. Clinically he declined. Patient now on IV cefepime, IV vancomycin, ID following closely. He had a chest xray showing diffuse bilateral infiltrates, possible pulmonary fibrosis, cancer or pneumonia. Patient was made a do not resuscitate. He has been placed on bipap 100% FiO2 and he is minimally responsive. family at the bedside discussed comfort care, hospice has been consulted and patient has been transitioned to [facility]. Review of Systems Unable to complete review of the systems patient is currently unresponsive on BiPAP All inpatient medications were reviewed and appropriate changes in these medications as dictated in the interval history and assessment and plan. PHYSICAL EXAMINATION: GENERAL: The patient is alert and oriented x1, Lethargic. not in any acute distress. Well developed, well nourished. HEENT: Pupils are round and equally reacting to light. EOMI. No scleral icterus. No conjunctival pallor. Normocephalic, atraumatic. No pharyngeal erythema. No thyromegaly. CARDIOVASCULAR: S1 and S2 present. No murmurs, rubs, or gallops. PULMONARY: Chest is clear to auscultation, no wheezing or crackles. ABDOMEN: Soft, nontender, nondistended, normoactive bowel sounds. No palpable organomegaly. MUSCULOSKELETAL: No joint swelling or deformity. EXTREMITIES: No cyanosis, clubbing, or pedal edema. NEUROLOGICAL: Gross neurological examination did not reveal any focal deficits. Diffuse weakness. SKIN: No rashes. Assessment and Plan -Fall and trauma likely due to orthostatic hypotension. -Community acquired pneumonia with sepsis currently maintained on IV cefepime. ID following closely. -Community-acquired pneumonia/immunocompromised host -Acute renal injury due to acute tubular necrosis and sepsis. Currently on Bicarb Gtt -Pancytopenia; related to chemotherapy s/p 2 units of PRBC hemoglobin currently 9.0, platelet count of 15, transfuse for hgb <7 and plt count <10,000 or acute bleeding. DVT prophylaxis contraindicated at this time as plt count less than 50,000. -Rib fracture/compression fractures T2 and T4 continue with supportive care and pain management. Orthopedic evaluation no surgical candidate. -Hypertension hx currently hypotensive likely due to septic shock and patient currently maintained on vasopressor support. -Hyperlipidemia; -Diabetes mellitus type 2; patient takes metformin 500 mg twice daily and glimepiride 1 mg daily; will hold oral hypoglycemic agents; monitor Accu-Cheks before every meal and at bedtime with insulin sliding scale -Atrial fibrillation; with RVR, currently on metoprolol with soft blood pressures cardizem has been placed on hold, eliquis currently on hold due to the pancytopenia. -Esophageal cancer; outpatient oncology follow-up recently undergone chemoradiation. GI prophylaxis Do Not Resuscitate Do Not Intubate The impression and plan of care has been dictated by Deb Aquino Nurse Practitioner as directed. Dr. Jessica MD I have performed a history and physical examination and medical decision making of this patient, discussed the same with the dictator, and agree with the dictators assessment and plan as written, documented as a scribe. Based on total visit time, I have performed more than 50% of this visit. Past Medical History Past Medical History: Atrial Fibrillation, Cancer, COPD, Diabetes Mellitus, GERD/Reflux, Hyperlipidemia, Hypertension, Pneumonia, Thyroid Disorder Additional Past Medical History / Comment(s): hx foot swelling and drainage left healing, taking lasix for this, was very painful, , ultrasound done on 05/31/23 lung cancer 06/18, chemo and radiation. diarrhea since chemo last sunday History of Any Multi-Drug Resistant Organisms: None Reported Past Surgical History: Heart Catheterization, Orthopedic Surgery Additional Past Surgical History / Comment(s): back surg, neck surg, right nipple removed due to pain benign, nerve damage to left side, skin cancer removed ear and face Past Anesthesia/Blood Transfusion Reactions: No Reported Reaction Additional Past Anesthesia/Blood Transfusion Reaction / Comment(s): no blood transfusion Past Psychological History: No Psychological Hx Reported Additional Psychological History / Comment(s): taking celexa since lung dx Smoking Status: Former smoker Past Alcohol Use History: None Reported Additional Past Alcohol Use History / Comment(s): 2 cigars/day at least per . stopped smoking cigarettes 3-4 yrs ago Past Drug Use History: None Reported - Past Family History Mother Family Medical History: Cancer, CVA/TIA Additional Family Medical History / Comment(s): skin Father Family Medical History: Myocardial Infarction ([place]) Additional Family Medical History / Comment(s): chf Medications and Allergies Home Medications Medication Instructions Recorded Confirmed Type Metoprolol Tartrate [Lopressor] 12.5 mg PO BID 03/16/23 10/16/23 History Aspirin 81 mg PO DAILY 90 Days #90 tab 03/19/23 10/16/23 Rx Famotidine [Pepcid] 20 mg PO DAILY 06/01/23 10/16/23 History Gabapentin 300 mg PO BID 06/01/23 10/16/23 History HYDROcodone/APAP 5-325MG [[place] 1 tab PO QID PRN 07/31/23 10/16/23 History 5-325] metFORMIN HCL [Glucophage] 500 mg PO BID 07/31/23 10/16/23 History Citalopram Hydrobromide 10 mg PO DAILY 08/13/23 10/16/23 History [Citalopram HBr] Glimepiride 1 mg PO DAILY 08/13/23 10/16/23 History Ondansetron [Zofran] 4 mg PO Q8H PRN 08/13/23 10/16/23 History Zolpidem Tartrate [Ambien] 5 mg PO HS 08/30/23 10/16/23 History Apixaban [Eliquis] 5 mg PO BID tab 09/01/23 10/16/23 Rx Atorvastatin [Lipitor] 40 mg PO HS 10/12/23 10/16/23 History Furosemide [Lasix] 40 mg PO BID 10/12/23 10/16/23 History Omeprazole [PriLOSEC] 40 mg PO DAILY 10/12/23 10/16/23 History Potassium Chloride ER [K-Dur 20] 20 meq PO DAILY 10/12/23 10/16/23 History dilTIAZem HCL [Cardizem CD] 240 mg PO DAILY 10/12/23 10/16/23 History Allergies Allergy/AdvReac Type Severity Reaction Status Date / Time cephalexin [From Keflex] Allergy Mild Rash/Hives Verified 10/12/23 11:55 codeine Allergy Mild Rash/Hives Verified 10/12/23 11:55 Physical Exam Vitals: Vital Signs Pulse Resp BP Pulse Ox FiO2 10/16/23 13:30 123 H 14 85/72 90 L 60 Intake and Output 10/15/23 10/16/23 10/16/23 22:59 06:59 14:59 Intake Total 13.196 Output Total 30 Balance -16.804 Intake: IV 10 .9 10 ml 10 Intake, IV Titration 3.196 Amount Morphine Sulfate (100 mg/ 3.196 2 ml) 100 mg In Sodium Chloride 0.9% 100 ml @ 2 MG/HR 2.04 mls/hr IV . Q24H [facility] Rx#:[id number] Output: Urine 30 Other: Voiding Method Indwelling Catheter Weight 77 kg Assessment and Plan Time with Patient: Less than 30
--- NOTE | 2023-10-16 14:42 | P.DS ---
Providers Date of admission: 10/16/23 11:50 Attending physician: Klever Lopez Primary care physician: Orlando Barnes MD Hospital Course: Final Diagnosis -Fall and trauma likely due to orthostatic hypotension. -Community acquired pneumonia with sepsis currently maintained on IV cefepime. ID following closely. -Community-acquired pneumonia/immunocompromised host -Acute renal injury due to acute tubular necrosis and sepsis. Currently on Bicarb Gtt -Pancytopenia; related to chemotherapy s/p 2 units of PRBC hemoglobin currently 9.0, platelet count of 15, transfuse for hgb <7 and plt count <10,000 or acute bleeding. DVT prophylaxis contraindicated at this time as plt count less than 50,000. -Rib fracture/compression fractures T2 and T4 continue with supportive care and pain management. Orthopedic evaluation no surgical candidate. -Hypertension hx currently hypotensive likely due to septic shock and patient currently maintained on vasopressor support. -Hyperlipidemia; -Diabetes mellitus type 2; patient takes metformin 500 mg twice daily and gli mepiride 1 mg daily; will hold oral hypoglycemic agents; monitor Accu-Cheks before every meal and at bedtime with insulin sliding scale -Atrial fibrillation; with RVR, currently on metoprolol with soft blood pressures cardizem has been placed on hold, eliquis currently on hold due to the pancytopenia. -Esophageal cancer; outpatient oncology follow-up recently undergone chemoradiation. GI prophylaxis Do Not Resuscitate Do Not Intubate Patient on 10/16/2023 at 1430. Preliminary cause of , pneumonia and sepsis, non small cell lung cancer. Hospital Course 77-year-old male who presents to the emergency department from [facility]. For sepsis. Patient comes in with a history of esophageal cancer, hypertension, hyperlipidemia, hypothyroidism, diabetes mellitus, COPD and history of atrial fibrillation. Patient also has diagnosis of non-small cell lung cancer. He underwent chemotherapy and most recently received radiation last sunday. Patient showed up to the ER because of weakness and fell they diagnosed with 2 rib fractures and a compression fracture T2 and T4. Patient also had pancytopenia and had pneumonia and they considered him septic patient was started on vancomycin and zosyn. Patient's pressure was a little soft while they were at [facility] they gave him 3 L of fluid by the time he arrived at our ER. Patient was pancytopenic on admission, Blood work repeated in ED reveals a WBC of 0.8, hemoglobin of 11.6 and platelet count of 31, creatinine of 1.36. he was admitted to the intensive care unit and was placed on pressor support. Patients eliquis has been placed on hold as he became anemia and required blood transfusion. Clinically he declined. Patient now on IV cefepime, IV vancomycin, ID following closely. He had a chest xray showing diffuse bilateral infiltrates, possible pulmonary fibrosis, cancer or pneumonia. Patient was made a do not resuscitate. He has been placed on bipap 100% FiO2 and he is minimally responsive. family at the bedside discussed comfort care, hospice has been consulted and patient has been transitioned to [facility]. Thank you for allowing us to participate in the care of this patient. The impression and plan of care has been dictated by Deb Aquino, Nurse Practitioner as directed. Dr. Jessica MD I have performed a history and physical examination and medical decision making of this patient, discussed the same with the dictator, and agree with the dictators assessment and plan as written, documented as a scribe. Based on total visit time, I have performed more than 50% of this visit. Plan - Discharge Summary New Discharge Prescriptions: No Action Aspirin 81 mg PO DAILY 90 Days #90 tab HYDROcodone/APAP 5-325MG [[place] 5-325] 1 tab PO QID PRN PRN Reason: Pain metFORMIN HCL [Glucophage] 500 mg PO BID Citalopram Hydrobromide [Citalopram HBr] 10 mg PO DAILY Ondansetron [Zofran] 4 mg PO Q8H PRN PRN Reason: Nausea And Vomiting Potassium Chloride ER [K-Dur 20] 20 meq PO DAILY Omeprazole [PriLOSEC] 40 mg PO DAILY Furosemide [Lasix] 40 mg PO BID Metoprolol Tartrate [Lopressor] 12.5 mg PO BID Gabapentin 300 mg PO BID Famotidine [Pepcid] 20 mg PO DAILY Glimepiride 1 mg PO DAILY Zolpidem Tartrate [Ambien] 5 mg PO HS Apixaban [Eliquis] 5 mg PO BID tab dilTIAZem HCL [Cardizem CD] 240 mg PO DAILY Atorvastatin [Lipitor] 40 mg PO HS Discharge Medication List Metoprolol Tartrate [Lopressor] 12.5 mg PO BID 03/16/23 [History] Aspirin 81 mg PO DAILY 90 Days #90 tab 03/19/23 [Rx] Famotidine [Pepcid] 20 mg PO DAILY 06/01/23 [History] Gabapentin 300 mg PO BID 06/01/23 [History] HYDROcodone/APAP 5-325MG [[place] 5-325] 1 tab PO QID PRN 07/31/23 [History] metFORMIN HCL [Glucophage] 500 mg PO BID 07/31/23 [History] Citalopram Hydrobromide [Citalopram HBr] 10 mg PO DAILY 08/13/23 [History] Glimepiride 1 mg PO DAILY 08/13/23 [History] Ondansetron [Zofran] 4 mg PO Q8H PRN 08/13/23 [History] Zolpidem Tartrate [Ambien] 5 mg PO HS 08/30/23 [History] Apixaban [Eliquis] 5 mg PO BID tab 09/01/23 [Rx] Atorvastatin [Lipitor] 40 mg PO HS 10/12/23 [History] Furosemide [Lasix] 40 mg PO BID 10/12/23 [History] Omeprazole [PriLOSEC] 40 mg PO DAILY 10/12/23 [History] Potassium Chloride ER [K-Dur 20] 20 meq PO DAILY 10/12/23 [History] dilTIAZem HCL [Cardizem CD] 240 mg PO DAILY 10/12/23 [History]
== END 2023-10-16 17:47 | disposition expired | DRG 951 ==
LOC: 2SICU 11:50
PROVIDERS: ADMIT Internal Medicine; ATTEND Internal Medicine
DX: Z51.5 Encounter for palliative care (principal); A41.9 Sepsis, unspecified organism; D61.810 Antineoplastic chemotherapy induced pancytopenia; J18.9 Pneumonia, unspecified organism; R65.21 Severe sepsis with septic shock; N17.0 Acute kidney failure with tubular necrosis; D84.9 Immunodeficiency, unspecified; J44.0 Chronic obstructive pulmonary disease with (acute) lower respiratory infection; S22.49XA Multiple fractures of ribs, unspecified side, initial encounter for closed fracture; M48.54XA Collapsed vertebra, not elsewhere classified, thoracic region, initial encounter for fracture; C34.90 Malignant neoplasm of unspecified part of unspecified bronchus or lung; E11.9 Type 2 diabetes mellitus without complications; I48.91 Unspecified atrial fibrillation; I95.1 Orthostatic hypotension; T45.1X5A Adverse effect of antineoplastic and immunosuppressive drugs, initial encounter; I10 Essential (primary) hypertension; E78.5 Hyperlipidemia, unspecified; E03.9 Hypothyroidism, unspecified; Z66 Do not resuscitate; W19.XXXA Unspecified fall, initial encounter; Z79.84 Long term (current) use of oral hypoglycemic drugs; Z85.01 Personal history of malignant neoplasm of esophagus; Z92.3 Personal history of irradiation; Z87.891 Personal history of nicotine dependence; Z79.01 Long term (current) use of anticoagulants; Z79.82 Long term (current) use of aspirin; Z79.899 Other long term (current) drug therapy; Z88.8 Allergy status to other drugs, medicaments and biological substances; Z88.5 Allergy status to narcotic agent; Z85.828 Personal history of other malignant neoplasm of skin; Z87.01 Personal history of pneumonia (recurrent)